=== PATIENT | male | born 1945 | race Caucasian/White ===

== ENCOUNTER 2017-05-01 11:39 | Observation (INO) ==
[2017-05-01] MEDS ORDERED: *HR* Promethazine 25 MG/ML VIAL IVP PRN (15:12)
[2017-05-01] MEDS ORDERED: Naloxone 0.4 MG/ML INJ IVP PRN (15:12)
[2017-05-01] MEDS ORDERED: *HR* HYDROcodone/Acet 5/325 mg TABLET PO PRN (15:12)
[2017-05-01] MEDS ORDERED: Ondansetron 4 MG/2 ML VIAL IVP PRN (15:12)
[2017-05-01] MEDS ORDERED: Acetaminophen 325 MG TABLET PO PRN (15:12)
[2017-05-01] MEDS ORDERED: D5% in Water 1,000 ML IVC PRN (15:17)
[2017-05-01] MEDS ORDERED: Dextrose Gel 15 GM/37.5 ML TUBE PO PRN ×2 (15:17)
[2017-05-01] MEDS ORDERED: *HR* Dextrose 50 % in Water (Syg) 50 ML SYRINGE IVP PRN (15:17)
--- NOTE | 2017-05-01 15:23 | Internal Med History&Physical ---
Date of Encounter: 05/01/17 Time of Encounter: 14:00 Assessment and Plan (1) Systolic CHF, acute on chronic Current visit: Yes Status: Acute Will place the pt into Tele for observation His symptoms slightly better now Troponin slightly elevated..Trend on Trop reviewed 2D Echo from 2015 showed LVEF 30% will recheck Echo in AM started him on IV Lasix 40mg BID Strict I & O and Daily weight Reviewed EKG showed SR, new T wave inversion in Infero lateral leads Card consulted for further work up.. He may get benefit with diagnostic LHC for his worsening CHF exacerbation (2) Elevated troponin Current visit: No Status: Acute (3) Ischemic cardiomyopathy Current visit: No Status: Acute (4) CAD (coronary atherosclerotic disease) Current visit: No Status: Chronic resumed all home meds Qualifiers: Coronary Disease-Associated Artery/Lesion type: unspecified vessel or lesion type [place] vs. transplanted heart: [place] heart Associated angina: with stable angina Qualified Code(s): I25.119 - Atherosclerotic heart disease of [place] coronary artery with unspecified angina pectoris (5) Hx of CABG Current visit: No Status: Chronic (6) Hypertension Current visit: No Status: Chronic stable with home meds Qualifiers: Hypertension type: essential hypertension Qualified Code(s): I10 - Essential (primary) hypertension (7) DM2 (diabetes mellitus, type 2) Current visit: Yes Status: Chronic on ISS Qualifiers: Diabetes mellitus complication status: without complication Diabetes mellitus watermelon inspector insulin use: with senior care use Qualified Code(s): E11.9 - Type 2 diabetes mellitus without complications; Z79.4 - terminal manager (current) use of insulin; Z79.4 - terminal manager (current) use of insulin; Z79.4 - [facility]PC ( current) use of insulin; Z79.4 - terminal manager (current) use of insulin Internal Medicine - H&P: HPI Chief complaint: Shortness of breath Admitted From: Emergency Dept Plans for Post Hospital Care: Home History of present illness: Mr. De La Cruz is a 72 year old male with a known past medical history of arthritis , CAD s/p 3-V CABG, ICMP with AICD EF2 30%, Systlic CHF, diabetes, GERD, hyperlipidemia, hypertension, osteoporosis and peripheral artery disease pt presented to [facility] with severe shortness of breath. As per, about 2 AM this morning tried to lay flat after coming back from restroom and noticed that he was having severe shortness of breath and LUIS. He did take 80mg of Lasix this morning at home , felt little better. He also c/o worsening pedal edema in both legs from last few days. His weight was about 15 pounds over today than his regular. He also had new T wave inversion in inferior and lateral leads. Past Med Surg Social Fam HX - Past Medical History Medical history: arthritis, cardiomyopathy, CHF, coronary artery disease, diabetes, GERD, hyperlipidemia, hypertension, myocardial infarction, osteoporosis, peripheral artery disease, other Psychiatric history: no psych history - Past Surgical History Surgical History: coronary bypass (CABG), LE Bypass, LE vascular intervention, pacemaker/AICD, other - Social History Smoking Status: Former smoker Smokeless Tobacco Status: No Alcohol use: occasionally Drug use: none - Family History Mother Adopted: No Living Status: Internal Medicine - H&P: Meds Aspirin 325 mg PO DAILY 08/09/15 [History] Ergocalciferol (VITAMIN D2) [Vitamin D2 (50,000 UNIT)] 50,000 unit PO QWEEK 05/21 [History] Gabapentin [Gralise] 300 mg PO TID 08/09/15 [History] Insulin Glargine [Lantus] 10 unit SQ HS 08/09/15 [History] Multivitamin [Multivitamins] 1 each PO DAILY 09/12/15 [History] GlipiZIDE XL (24 HR) [Glucotrol XL] 10 mg PO BID 09/13/15 [History] Metoprolol [Lopressor] 25 mg PO BID 09/13/15 [History] Nitroglycerin 0.4 mg SL Q5MIN PRN #30 tab.subl 09/13/15 [Rx] Simvastatin [Zocor] 20 mg PO HS #30 tablet 09/13/15 [Rx] Furosemide [Lasix] 40 mg PO DAILY 05/01/17 [History] Losartan [Cozaar] 50 mg PO DAILY 05/01/17 [History] 3 Allergy/AdvReac Type Severity Reaction Status Date / Time No Known Allergies Allergy Verified 05/01/17 09:37 All Systems PM: A 10-system review of systems was performed and is negative for pertinent findings except as documented above in the HPI. Review of systems: All the systems are reviewed everything is benign except the systems and symptoms I mentioned in the history of present illness - Constitutional Vitals: Temp Pulse Resp BP Pulse Ox 97.9 F 73 16 128/71 94 05/01/17 14:19 05/01/17 14:19 05/01/17 14:19 05/01/17 14:19 05/01/17 14:19 General appearance: Present: A&O X 3, answers questions appropriately - Head Head exam: Present: atraumatic, normal inspection - Neck Neck exam general surgery: Present: supple - Respiratory Respiratory exam: Present: decreased breath sounds. Absent: rales, respiratory distress, rhonchi, wheezes - Cardiovascular Cardiovascular exam: Present: RRR, +S1, +S2. Absent: tachycardia - GI/Abdominal GI/Abdominal exam: Present: normal bowel sounds, soft. Absent: rebound, rigid, tenderness - Extremities Exam Extremities exam: Present: pedal edema (1-2+). Absent: calf tenderness, tenderness - Back Exam Back exam: Absent: CVA tenderness (L), CVA tenderness (R) - Neurological Exam Neurological exam: Present: alert, oriented X3 - Psychiatric Psychiatric exam: Present: normal affect, normal mood
[2017-05-01] MEDS: Insulin LISPRO 300 UNITS/3 ML VIAL SQ SCH (17:23)
[2017-05-01] MEDS: Furosemide 40 MG/4 ML VIAL IVP SCH (20:50)
[2017-05-01] MEDS ORDERED: Insulin LISPRO 300 UNITS/3 ML VIAL SQ SCH (21:00)
[2017-05-02 06:16] LABS: Basophils # 0.1 K/mcL (0.0-0.2); Basophils % 1.4 %; Eosinophils # 0.2 K/mcL (0.0-0.6); Eosinophils % 3.5 %; Hematocrit 28.7 % (37.5-50.1); Hemoglobin 9.1 g/dL (12.9-16.9); Immature Granulocytes % 0.5 % (0-4); Lymphocytes # 1.6 K/mcL (0.6-4.6); Lymphocytes % 24.6 %; Mean Corpuscular HGB Conc 31.7 g/dL (31.6-35.5); Mean Corpuscular Hemoglobin 27.4 pg (28.0-33.3); Mean Corpuscular Volume 86.4 fL (83.0-100.0); Mean Platelet Volume 10.5 fL (9.4-12.4); Monocytes # 0.6 K/mcL (0.0-1.3); Monocytes % 9.4 %; Neutrophils # 3.9 K/mcL (1.6-8.9); Platelet Count 257 K/mcL (140-400); Red Blood Count 3.32 M/mcL (4.19-5.50); Red Cell Distribution Width 14.7 % (11.5-14.5); Segmented Neutrophils % 60.6 %
[2017-05-02 06:29] LABS: BUN/Creatinine Ratio 22 (6-26); Blood Urea Nitrogen 23 mg/dL (8-23); Carbon Dioxide 29 mEq/L (23-29); Chloride 103 mEq/L (98-107); Potassium 3.4 mEq/L (3.5-5.1); Sodium 138 mEq/L (136-145)
[2017-05-02 06:30] LABS: Calcium 8.6 mg/dL (8.6-10.3); Chol/HDL Ratio 3.6 (0-4.9); Cholesterol 115 mg/dL (< 200); Glucose 215 mg/dL (70-105); HDL Cholesterol 32 mg/dL (40-59); LDL Cholesterol,Calculated 64 mg/dL (0-99); Magnesium 2.2 mg/dL (1.6-2.6); Osmolality,Calculated 296 (280-300); Triglycerides 94 mg/dL (< 150); eGFR For Non-African Americans > 60 (> 60)
--- NOTE | 2017-05-02 08:03 | Cardiology Consult Note ---
Date of Encounter: 05/02/17 Time of Encounter: 08:00 Assessment and Plan (1) Systolic CHF, acute on chronic Current Visit: Yes Status: Acute Per Cardiology: Has known ICMP with EF 30%, current echo pending per primary service. Has ICD-- denies any ICD shocks. Present with worsening shortness of breath and BNP of 1061-- appears to have chronic history of elevated BNPs. On IV Lasix 40 mg twice a day. Net I&O -160ml. Will initiate strict I&O, daily weights, 1.5 L fluid restriction. Med list reviewed and on beta david at home-- will start Toprol-XL 12.5 mg by mouth daily (was on lopressor, but has low EF). Additionally on ARB at home, we'll consider adding if systolic blood pressure can tolerate and kidney function remains stable with diuresis. Patient with recent medical noncompliance. Suspect noncompliance with low sodium diet and fluid restriction as well. Education reinforced regarding importance of fluid restriction, low sodium diet, following medical regimen. Clinically appears improved. recommend at time of DC start on daily lasix regimen vs his PRN regimen he was following. Discussed and reviewed with Dr. Melisa Talbot, no further recommendations, cardiology will sign off, reconsult as needed, follow- up arranged. (2) CAD (coronary artery disease) Current Visit: No Status: Acute Per Cardiology: History of CABG in 1993. Troponins negative 2. Chest pain free. Will resume home aspirin and statin and beta david. Last stress test in 2013. Can consider further ischemic evaluation if clinically warranted-- patient anxious to go home, can consider in outpatient setting. Last [facility] 06/2010: Findings/Interventions: Left Ventriculography - The overall left ventricular systolic function was moderately to severely reduced. Left ventricular ejection fraction was 25%. There is moderate to severe, global, left ventricular hypokinesis. Left Anterior Descending Artery - The proximal left anterior descending artery was 100% occluded. Left Circumflex Artery - There was a 40% discrete stenosis in the proximal left circumflex artery. Right Coronary Artery - The right coronary artery was dominant to the posterior circulation. The proximal right coronary artery was 100% occluded. Grafts - LAD Graft Graft #1 was engaged and an injection was performed. It was a saphenous vein graft with anastomosis at the mid left anterior descending artery. The graft is patent. - PDA Graft Graft #2 was engaged and an injection was performed. It was a right internal mammary artery graft with anastomosis at the proximal posterior descending artery. The graft is patent. Impression: Severe two vessel coronary artery disease. Patent saphenous vein graft to the left anterior descending artery. Patent right internal mammary artery graft to the right posterior descending artery. The overall left ventricular systolic function was moderately to severely reduced. The left ventricular ejection fraction was 25%. There is moderate to severe, global, left ventricular hypokinesis. Qualifiers: Coronary Disease-Associated Artery/Lesion type: [place] artery [place] vs. transplanted heart: [place] heart Associated angina: angina presence unspecified Qualified Code(s): I25.10 - Atherosclerotic heart disease of [place] coronary artery without angina pectoris Discussion w patient/family: The assessment and plan as outlined above was discussed with the patient who expressed understanding and agreement. All questions were answered. Thank you for involving us in the care of your patient. Please call with any questions. History of Present Illness Consult date: 05/02/17 Requesting physician: Vidya Driver Consult reason: CHF, Trops elevation Chief complaint: SOB History of present illness: Mr. De La Cruz is a 72 year old male with a known past medical history of arthritis , CAD s/p 3-V CABG, ICMP with AICD EF2 30%, Systlic CHF, diabetes, GERD, hyperlipidemia, hypertension, osteoporosis and peripheral artery disease. Last seen by Dr. Grimes with cardiology December 2016. Cardiology consult for shortness of breath/CHF. Patient reports increased shortness of breath at rest and with laying flat over the past one week. Patient reports he takes Lasix 40 mg every other evening routinely over the past 6 months, however over the past few weeks has increased to 80 mg every evening. Patient reports recent medical noncompliance due to "running out of medications over the past 2 weeks ". Patient reports he does not weigh himself regularly, however baseline weight about 187 pounds. He does report compliance with fluid restriction, however also indicates he fills up a pitcher of water with ice prior to bedtime and drinks about a half a cup prior to going to bed. Since admission he reports overall he is short of breath has improved, abdominal distention has improved, edema to lower extremities has improved. He also reports facial swelling has improved as well. Prior to admission he denies any chest pain symptoms. He reports fatigue about baseline. He denies any palpitations, dizziness, syncope, falls. Denies any ICD shocks. He denies any active bleeding or blood loss. Denies any recent infectious process. Patient is anxious to go home today. Past Med Surg Social Fam HX - Past Medical History Attestation: Yes The following information was validated with the patient. Source: patient, old records reviewed Medical history: arthritis, cardiomyopathy, CHF, coronary artery disease, diabetes, GERD, hyperlipidemia, hypertension, myocardial infarction, osteoporosis, peripheral artery disease, other Psychiatric history: no psych history - Past Surgical History Surgical History: coronary bypass (CABG), LE Bypass, LE vascular intervention, pacemaker/AICD, other - Social History Smoking Status: Former smoker Smokeless Tobacco Status: No Alcohol use: occasionally Drug use: none - Family History Mother Adopted: No Living Status: Medications and Allergies Aspirin 325 mg PO DAILY 08/09/15 [History] Ergocalciferol (VITAMIN D2) [Vitamin D2 (50,000 UNIT)] 50,000 unit PO QWEEK 05/21 [History] Gabapentin [Gralise] 300 mg PO TID 08/09/15 [History] Insulin Glargine [Lantus] 10 unit SQ HS 08/09/15 [History] Multivitamin [Multivitamins] 1 each PO DAILY 09/12/15 [History] GlipiZIDE XL (24 HR) [Glucotrol XL] 10 mg PO BID 09/13/15 [History] Metoprolol [Lopressor] 25 mg PO BID 09/13/15 [History] Nitroglycerin 0.4 mg SL Q5MIN PRN #30 tab.subl 09/13/15 [Rx] Simvastatin [Zocor] 20 mg PO HS #30 tablet 09/13/15 [Rx] Furosemide [Lasix] 40 mg PO DAILY 05/01/17 [History] Losartan [Cozaar] 50 mg PO DAILY 05/01/17 [History] 3 Allergy/AdvReac Type Severity Reaction Status Date / Time No Known Allergies Allergy Verified 05/01/17 09:37 All Systems Review: The remainder of the systems were reviewed and are negative - Constitutional Constitutional: fatigue - Cardiovascular Cardiovascular: as per HPI, dyspnea at rest, dyspnea on exertion, leg edema - Gastrointestinal Gastrointestinal: other (Abdominal distention) Physical Examination Selected Entries 05/02/17 03:20 05/02/17 04:20 Temperature 98.6 F Pulse Rate 72 Respiratory Rate 16 Blood Pressure 131/66 O2 Sat by Pulse Oximetry 94 Oxygen Delivery Method Room Air General: Conversant, No Apparent Distress HEENT: Atraumatic, Normocephaly, Mucus Membranes Moist Neck: No JVD, Normal carotid pulses Cardiac: Reg Rate and Rhythm, Normal S1 and S2, No Murmur Lungs: Normal Breath Sounds, Other (Slightly diminished bilateral bases, patient seen laying flat in bed today with no difficulty breathing) Neuro: Alert and responsive, No focal deficits noted Abdomen: Soft, Non-Tender Skin: No rashes noted on visualized skin Musculoskeletal: No Chest Wall Tenderness Extremities: No Clubbing, No Cyanosis, Normal Pulses, Other (Trace to +1 pitting edema to bilateral lower extremities) Results 05/02/17 05:09 05/02/17 05:09 Lab Results Laboratory Tests 09/12/15 02/24/16 02/24/16 18:25 10:50 10:50 Hgb 11.3 L Hct Troponin I B-Natriuretic Peptide 217 H 466 H 05/01/17 05/01/17 05/01/17 10:00 15:32 21:17 Hgb Hct Troponin I 0.03 0.03 B-Natriuretic Peptide 1061 H 05/02/17 05/02/17 05:09 05:09 Hgb 9.1 L Hct 28.7 L Troponin I B-Natriuretic Peptide 726 H Intake & Output 04/29/17 04/30/17 05/01/17 05/02/17 23:59 23:59 23:59 23:59 Intake Total 240 / 240 Output Total 400 / 400 Balance 240 / 240 -400 / -400 Weight 85.842 kg 86.092 kg Active Medications Acetaminophen (Tylenol) 650 mg PO Q6HR PRN PRN Reason: Mild Pain/Fever Stop: 10/31/17 15:13 Hydrocodone Bitart/Acetaminophen ([place] 5-325 Mg) 1 tab PO Q6HR PRN PRN Reason: Moderate Pain Stop: 10/31/17 15:13 Dextrose/Water (Dextrose 50% (Syg)) 25 ml IVP AD PRN PRN Reason: Hypoglycemia Stop: 10/31/17 15:18 Docusate Sodium (Colace) 100 mg PO BID PRN PRN Reason: Constipation Stop: 10/31/17 21:01 Furosemide (Lasix) 40 mg IVP BID ANASTASIYA Stop: 10/31/17 21:01 Last Admin: 05/01/17 20:50 Dose: 40 mg Glucagon (Glucagen) 1 mg IM ONCE PRN PRN Reason: Hypoglycemia Stop: 10/31/17 15:18 Glucose (Gluctose) 15 gm PO ONCE PRN PRN Reason: Hypoglycemia Stop: 10/31/17 15:18 Glucose (Gluctose) 30 gm PO ONCE PRN PRN Reason: Hypoglycemia Stop: 10/31/17 15:18 Dextrose (Dextrose 5%) 1,000 mls @ 100 mls/hr IVC .Q10H PRN PRN Reason: HYPOGLYCEMIA Stop: 10/31/17 15:18 Insulin Human Lispro (Humalog) 0 units SQ HS ANASTASIYA PRN Reason: Protocol Stop: 10/31/17 21:01 Last Admin: 05/01/17 20:50 Dose: Not Given Insulin Human Lispro (Humalog) 0 units SQ TIDAC ANASTASIYA PRN Reason: Protocol Stop: 10/31/17 16:31 Last Admin: 05/01/17 17:23 Dose: Not Given Naloxone HCl (Narcan) 0.4 mg IVP Q2MIN PRN PRN Reason: SEE COMMENTS Stop: 10/31/17 15:13 Ondansetron HCl (Zofran) 4 mg IVP Q8HR PRN PRN Reason: Nausea And Vomiting Stop: 10/31/17 15:13 Promethazine HCl (Phenergan) 12.5 mg IVP Q6HR PRN PRN Reason: Nausea And Vomiting Stop: 10/31/17 15:13 - Imaging and Cardiology Stress Test: report reviewed (last stress test 2013) Echo: pending, report reviewed Cardiac cath: report reviewed - EKG Interpretation EKG results cardiology: personally reviewed, normal ECG, sinus rhythm, ventricular paced rhythm, other (Paced rhythm on telemetry) Consult Discharge Plan - Plan Referrals: Dino Manzanares MD [Primary Care Provider] -
[2017-05-02] MEDS: Furosemide 40 MG/4 ML VIAL IVP SCH (08:29)
[2017-05-02] MEDS: Insulin LISPRO 300 UNITS/3 ML VIAL SQ SCH ×2 (08:47→12:36)
[2017-05-02] MEDS ORDERED: Aspirin 81 MG TAB.CHEW PO SCH (09:00)
[2017-05-02] MEDS ORDERED: Metoprolol XL (24 HR) Succ 25 MG TAB.ER.24H PO SCH (09:00)
[2017-05-02] MEDS ORDERED: Perflutren Lipid Microsphere 1.3 ML in 0.9 % Sodium Chloride 8.7 ML IVP ONE (09:27)
[2017-05-02 12:00] VITALS: BP 132/74
--- NOTE | 2017-05-02 15:51 | Event Note ---
Date of Encounter: 05/02/17 Time of Encounter: 11:00 Mr. De La Cruz is a 72-year-old gentleman who was admitted with some systolic congestive heart failure and history of CAD and diabetes. He is noncompliant. He was refusing his insulin here because it was not dispensed in milligrams. Multiple nurses and myself tried to educate him on insulin being dispensed in units and he stated that his his written in milligrams, he did not want to listen. He also stated he was leaving today no matter what. He did not believe he needs to stay another day or so for continued diuresis. He states he feels back to his baseline and since the weather is nice and he can get out and walk around he will be fine. Cardiology saw the patient and also recommended he stay for at least 1 more day for continued diuresis. The cardiology service nor myself felt he was ready for discharge. His glucose on admission was 726. I did replace his potassium which is low this morning. He stated he was not staying. His came in and tried to talk him into staying but he refused and he did leave AGAINST MEDICAL ADVICE. Cardiology will arrange for him to be seen in the office in 1-2 weeks but they are not sure of his compliance either. His echocardiogram was completed. With EF of 30%. Mild dilated left ventricle, intermittent diastolic function.
== END 2017-05-02 13:55 | disposition left against medical advice (07) ==
LOC: 3BNU
PROVIDERS: ADMIT Family Medicine; ATTEND Registered Nurse

== ENCOUNTER 2017-10-07 09:22 | Inpatient (IN) ==
[2017-10-07] MEDS ORDERED: Furosemide 40 MG/4 ML VIAL IVP ONE ×2 (10:06→19:19)
--- NOTE | 2017-10-07 10:10 | Emergency Department Note ---
Disposition Clinical Impression: NSTEMI (non-ST elevated myocardial infarction) Congestive heart failure Qualifiers: Heart failure type: unspecified Heart failure chronicity: acute on chronic Qualified Code(s): I50.9 - Heart failure, unspecified Disposition: Admitted As Inpatient Condition: Good SOB HPI - General Chief Complaint: ED Shortness of Breath/Dyspnea Stated Complaint: SOB/fluid overload-sent from cardiology Time Seen by Provider: 10/07/17 09:45 Source: patient Mode of arrival: wheelchair Limitations: no limitations (patient is slightly hard of hearing) Nursing Notes Reviewed: Yes Vital Signs Reviewed: Yes - History of Present Illness Jodie is a pleasant 72-year-old male with a past medical history of congestive heart failure type 2 diabetes. He presents the emergency room with a chief complaint of restless of breath, fluid overloading and abdominal and lower leg swelling. He was sent to the emergency room from his network liaison to be admitted for paracentesis. He denies chest pain however states that he does have generalized aches throughout his body. He states he has been dealing with increased swelling for the past several weeks. He notes that he takes 160 mg of Lasix a day 80 in the morning 80 in the evening. He states that he has not had his morning dose yet. He notes that he has been having increased shortness for the past several weeks and his Lasix dose has been increased in this time. It is of the Lasix has not decreased any of his shortness of breath. He denies fevers cough. No other concerns at this time. He was sent to the emergency room by his network liaison. Pt Subjective Complaint: shortness of breath Onset (ago): week(s) Associated symptoms: Reports: denies other symptoms Cough present: No Sputum production: No - Related Data Home Medications Medication Instructions Recorded Confirmed Aspirin 325 mg PO DAILY 08/09/15 10/07/17 Insulin Glargine [Lantus] 10 unit SQ HS 08/09/15 10/07/17 Multivitamin [Multivitamins] 1 each PO DAILY 09/12/15 10/07/17 GlipiZIDE XL (24 HR) [Glucotrol XL] 10 mg PO BID 09/13/15 10/07/17 Metoprolol [Lopressor] 25 mg PO BID 09/13/15 10/07/17 Esomeprazole Magnesium [Nexium 20 mg PO DAILY 05/02/17 10/07/17 24Hr] Gabapentin [Neurontin] 300 mg PO TID 05/02/17 10/07/17 Losartan Potassium [Cozaar] 50 mg PO DAILY 05/02/17 10/07/17 Vit C/E/Zn/Coppr/Lutein/Zeaxan 1 cap PO BID 05/02/17 10/07/17 [Preservision Areds 2 Softgel] Furosemide [Lasix] 80 mg PO BID 10/07/17 10/07/17 Previous Rx's Medication Instructions Recorded Nitroglycerin 0.4 mg SL Q5MIN PRN #30 tab.subl 09/13/15 Simvastatin [Zocor] 20 mg PO HS #30 tablet 09/13/15 Allergies Allergy/AdvReac Type Severity Reaction Status Date / Time No Known Allergies Allergy Verified 10/07/17 09:25 All systems ED: reviewed and negative except as stated. Review of Systems: As Per HPI Constitutional: Reports: as per HPI Eyes: Reports: as per HPI Cardiovascular: Reports: as per HPI Respiratory: Reports: as per HPI Gastrointestinal: Reports: as per HPI Musculoskeletal: Reports: as per HPI Integumentary: Reports: as per HPI Past Medical History - Past Medical History Medical history: Reports: arthritis, cardiomyopathy, CHF, coronary artery disease, diabetes, GERD, hyperlipidemia, hypertension, myocardial infarction, osteoporosis, peripheral artery disease, other Surgical history: Reports: coronary bypass (CABG), LE Bypass, LE vascular intervention, pacemaker/AICD, other Psychiatric history: Reports: no psych history - Social History Smoking Status: Former smoker Smokeless Tobacco Status: No Alcohol use: Reports: occasionally Drug use: Reports: none Physical Exam - General General appearance: alert, in no apparent distress - Head Head exam: atraumatic - ENT ENT exam: normal exam - Chest Chest inspection: Present: normal inspection - Respiratory Respiratory exam: Present: normal lung sounds bilaterally - Cardiovascular Cardiovascular exam: Present: regular rate, normal rhythm - Abdominal Exam Abdominal exam: Present: distention. Absent: guarding, rebound - Expanded Lower Extremity Exam Hip/Pelvis exam: Present: tenderness Upper leg exam: Present: tenderness Knee exam: Present: tenderness. Absent: swelling Lower leg exam: Present: tenderness, swelling Ankle exam: Absent: swelling Foot/toe exam: Absent: deformity Neurovascular/Tendon exam: Present: normal capillary refill Gait: not tested/not observed - Back Exam Back exam: Absent: CVA tenderness (R), CVA tenderness (L) - Neurological Exam Neurological exam: Present: alert, oriented X3 - Psychiatric Psychiatric exam: Present: normal affect, normal mood - Skin Skin exam: Present: warm, dry, intact. Absent: rash Course Course Narrative: Care of patient was comanage with Dr. thomas. There are concerns for nonresolution of shortness of breath with Lasix administration. Patient will be admitted for non-STEMI/CHF exacerbation. Heparin was added due to troponin elevation. Vital Signs Temperature 97.9 F 10/07/17 09:25 Pulse Rate 72 10/07/17 09:25 Respiratory Rate 24 10/07/17 09:25 Blood Pressure 117/78 10/07/17 09:25 O2 Sat by Pulse Oximetry 95 10/07/17 09:25 Temperature 97.3 F L 10/07/17 16:37 Pulse Rate 66 10/07/17 16:37 Respiratory Rate 17 10/07/17 16:37 Blood Pressure 118/76 10/07/17 16:37 O2 Sat by Pulse Oximetry 98 10/07/17 16:37 Oxygen Delivery Oxygen Delivery Room Air Shortness of Breath/Dyspnea - MDM Narrative Medical decision making narrative: Acis discussed with cardiology who agreed to consult on the patient. I discussed case with hospitalist who will admit to hospitalist service. - Lab Data Result diagrams: 10/07/17 14:46 10/07/17 10:23 Lab Results 10/07/17 10/07/17 10/07/17 Range/Units 10:23 10:23 10:23 WBC 7.5 (4.3-11.1) K/mcL RBC 4.41 (4.19-5.50) M/mcL Hgb 11.6 L (12.9-16.9) g/dL Hct 35.9 L (37.5-50.1) % MCV 81.4 L (83.0-100.0) fL MCH 26.3 L (28.0-33.3) pg MCHC 32.3 (31.6-35.5) g/dL RDW 17.3 H (11.5-14.5) % Plt Count 226 (140-400) K/mcL MPV 10.1 (9.4-12.4) fL Immature Gran % 0.4 (0-4) % Seg Neutrophils % 64.5 % Lymphocytes % 15.2 % Monocytes % 14.0 % Eosinophils % 4.7 % Basophils % 1.2 % Neutrophils # 4.8 (1.6-8.9) K/mcL Lymphocytes # 1.1 (0.6-4.6) K/mcL Monocytes # 1.0 (0.0-1.3) K/mcL Eosinophils # 0.4 (0.0-0.6) K/mcL Basophils # 0.1 (0.0-0.2) K/mcL PT (9.4-12.1) Seconds INR Heparin Anti-Xa, Unfract (0.30-0.70) IU/mL Sodium 137 (136-145) mEq/L Potassium 4.0 (3.5-5.1) mEq/L Chloride 101 (98-107) mEq/L Carbon Dioxide 29 (23-29) mEq/L BUN 40 H (8-23) mg/dL Creatinine 1.49 H (0.70-1.30) mg/dL Est GFR ( Amer) 56 L (> 60) Est GFR (Non-Af Amer) 46 L (> 60) BUN/Creatinine Ratio 27 H (6-26) Glucose 304 H (70-105) mg/dL Calculated Osmolality 305 H (280-300) Lactic Acid 1.1 (0.5-2.2) mmol/L Calcium 8.9 (8.6-10.3) mg/dL Total Bilirubin 0.6 (0.3-1.0) mg/dL Direct Bilirubin 0.2 (0.0-0.2) mg/dL Indirect Bilirubin 0.4 (0.0-1.2) mg/dL AST 23 (13-39) Units/L ALT 17 (7-52) Units/L Alkaline Phosphatase 133 H (34-104) Units/L Troponin I 0.13 H* (< 0.04) ng/mL B-Natriuretic Peptide (Less than 100) pg/mL Serum Total Protein 7.0 (6.4-8.9) g/dL Albumin 3.8 (3.5-5.7) g/dL Globulin 3.2 (2.4-3.5) g/dL Albumin/Globulin Ratio 1.2 (1.1-2.2) 08/02/18 08/02/18 08/02/18 Range/Units 10:23 14:46 14:46 WBC 6.9 (4.3-11.1) K/mcL RBC 4.32 (4.19-5.50) M/mcL Hgb 11.4 L (12.9-16.9) g/dL Hct 35.1 L (37.5-50.1) % MCV 81.3 L (83.0-100.0) fL MCH 26.4 L (28.0-33.3) pg MCHC 32.5 (31.6-35.5) g/dL RDW 17.2 H (11.5-14.5) % Plt Count 234 (140-400) K/mcL MPV 9.7 (9.4-12.4) fL Immature Gran % (0-4) % Seg Neutrophils % % Lymphocytes % % Monocytes % % Eosinophils % % Basophils % % Neutrophils # (1.6-8.9) K/mcL Lymphocytes # (0.6-4.6) K/mcL Monocytes # (0.0-1.3) K/mcL Eosinophils # (0.0-0.6) K/mcL Basophils # (0.0-0.2) K/mcL PT 15.3 H (9.4-12.1) Seconds INR 1.4 Heparin Anti-Xa, Unfract 0.01 L (0.30-0.70) IU/mL Sodium (136-145) mEq/L Potassium (3.5-5.1) mEq/L Chloride (98-107) mEq/L Carbon Dioxide (23-29) mEq/L BUN (8-23) mg/dL Creatinine (0.70-1.30) mg/dL Est GFR ( Amer) (> 60) Est GFR (Non-Af Amer) (> 60) BUN/Creatinine Ratio (6-26) Glucose (70-105) mg/dL Calculated Osmolality (280-300) Lactic Acid (0.5-2.2) mmol/L Calcium (8.6-10.3) mg/dL Total Bilirubin (0.3-1.0) mg/dL Direct Bilirubin (0.0-0.2) mg/dL Indirect Bilirubin (0.0-1.2) mg/dL AST (13-39) Units/L ALT (7-52) Units/L Alkaline Phosphatase (34-104) Units/L Troponin I (< 0.04) ng/mL B-Natriuretic Peptide 1097 H (Less than 100) pg/mL Serum Total Protein (6.4-8.9) g/dL Albumin (3.5-5.7) g/dL Globulin (2.4-3.5) g/dL Albumin/Globulin Ratio (1.1-2.2)
[2017-10-07 10:32] LABS: Basophils # 0.1 K/mcL (0.0-0.2); Basophils % 1.2 %; Eosinophils # 0.4 K/mcL (0.0-0.6); Eosinophils % 4.7 %; Hematocrit 35.9 % (37.5-50.1); Hemoglobin 11.6 g/dL (12.9-16.9); Immature Granulocytes % 0.4 % (0-4); Lymphocytes # 1.1 K/mcL (0.6-4.6); Lymphocytes % 15.2 %; Mean Corpuscular HGB Conc 32.3 g/dL (31.6-35.5); Mean Corpuscular Hemoglobin 26.3 pg (28.0-33.3); Mean Corpuscular Volume 81.4 fL (83.0-100.0); Mean Platelet Volume 10.1 fL (9.4-12.4); Neutrophils # 4.8 K/mcL (1.6-8.9); Platelet Count 226 K/mcL (140-400); Red Blood Count 4.41 M/mcL (4.19-5.50); Red Cell Distribution Width 17.3 % (11.5-14.5); Segmented Neutrophils % 64.5 %
[2017-10-07 11:02] LABS: Albumin 3.8 g/dL (3.5-5.7); Albumin/Globulin Ratio 1.2 (1.1-2.2); Bilirubin,Direct 0.2 mg/dL (0.0-0.2); Bilirubin,Indirect 0.4 mg/dL (0.0-1.2); Bilirubin,Total 0.6 mg/dL (0.3-1.0); Calcium 8.9 mg/dL (8.6-10.3); Globulin 3.2 g/dL (2.4-3.5)
[2017-10-07 11:06] LABS: Troponin I 0.13 ng/mL (< 0.04)
[2017-10-07] MEDS ORDERED: Isovue-370 500 ML INFUS..BTL IV ONE (12:30)
[2017-10-07] MEDS ORDERED: *HR* Heparin 5,000 UNIT/ML VIAL IVP ONE (14:38)
[2017-10-07] MEDS ORDERED: *HR* Heparin 5,000 UNIT/ML VIAL IVP PRN ×2 (14:38)
[2017-10-07] MEDS ORDERED: Heparin 25,000 UNIT/500 ML D5W 25,000 UNIT/500 ML BAG IVC SCH (14:45)
[2017-10-07 14:56] LABS: Hematocrit 35.1 % (37.5-50.1); Hemoglobin 11.4 g/dL (12.9-16.9); Mean Corpuscular HGB Conc 32.5 g/dL (31.6-35.5); Mean Corpuscular Hemoglobin 26.4 pg (28.0-33.3); Mean Corpuscular Volume 81.3 fL (83.0-100.0); Mean Platelet Volume 9.7 fL (9.4-12.4); Platelet Count 234 K/mcL (140-400); Red Blood Count 4.32 M/mcL (4.19-5.50); Red Cell Distribution Width 17.2 % (11.5-14.5)
[2017-10-07 15:08] LABS: Heparin anti-factor XA UFH 0.01 IU/mL (0.30-0.70)
[2017-10-07 15:09] LABS: INR 1.4; Prothrombin Time 15.3 Seconds (9.4-12.1)
--- NOTE | 2017-10-07 15:17 | Emergency Department Note ---
Disposition Clinical Impression: NSTEMI (non-ST elevated myocardial infarction) Congestive heart failure Qualifiers: Heart failure type: unspecified Heart failure chronicity: acute on chronic Qualified Code(s): I50.9 - Heart failure, unspecified Disposition: Admitted As Inpatient Condition: Good Referrals: Dino Manzanares MD [Primary Care Provider] - Forms: ED Satisfaction Letter Time of Disposition: 15:18 SOB HPI - General Chief Complaint: ED Shortness of Breath/Dyspnea Stated Complaint: SOB/fluid overload-sent from cardiology Time Seen by Provider: 10/07/17 09:45 Source: patient Mode of arrival: wheelchair Limitations: no limitations (patient is slightly hard of hearing) - Related Data Home Medications Medication Instructions Recorded Confirmed Aspirin 325 mg PO DAILY 08/09/15 05/17/17 Insulin Glargine [Lantus] 10 unit SQ HS 08/09/15 05/17/17 Multivitamin [Multivitamins] 1 each PO DAILY 09/12/15 05/17/17 GlipiZIDE XL (24 HR) [Glucotrol XL] 10 mg PO BID 09/13/15 05/17/17 Metoprolol [Lopressor] 25 mg PO BID 09/13/15 05/17/17 Furosemide [Lasix] 40 mg PO BID 05/01/17 05/17/17 Esomeprazole Magnesium [Nexium 20 mg PO DAILY 05/02/17 05/17/17 24Hr] Gabapentin [Neurontin] 300 mg PO TID 05/02/17 05/17/17 Losartan Potassium [Cozaar] 50 mg PO DAILY 05/02/17 05/17/17 Vit C/E/Zn/Coppr/Lutein/Zeaxan 1 cap PO BID 05/02/17 05/17/17 [Preservision Areds 2 Softgel] Previous Rx's Medication Instructions Recorded Nitroglycerin 0.4 mg SL Q5MIN PRN #30 tab.subl 09/13/15 Simvastatin [Zocor] 20 mg PO HS #30 tablet 09/13/15 Fluconazole [Diflucan] 150 mg PO ONCE #1 tablet 09/13/17 Furosemide [Lasix] 40 mg PO BID #60 tablet 09/13/17 Ketoconazole 2% CRM [Nizoral Cream] 1 appl TP BID #1 tube 09/13/17 Allergies Allergy/AdvReac Type Severity Reaction Status Date / Time No Known Allergies Allergy Verified 10/07/17 09:25 Past Medical History - Past Medical History Medical history: Reports: arthritis, cardiomyopathy, CHF, coronary artery disease, diabetes, GERD, hyperlipidemia, hypertension, myocardial infarction, osteoporosis, peripheral artery disease, other Surgical history: Reports: coronary bypass (CABG), LE Bypass, LE vascular intervention, pacemaker/AICD, other Psychiatric history: Reports: no psych history - Social History Smoking Status: Former smoker Smokeless Tobacco Status: No Alcohol use: Reports: occasionally Drug use: Reports: none Physical Exam - General Limitations: no limitations (patient is slightly hard of hearing) General appearance: alert, in no apparent distress Course Vital Signs Temperature 97.9 F 10/07/17 09:25 Pulse Rate 72 10/07/17 09:25 Respiratory Rate 24 10/07/17 09:25 Blood Pressure 117/78 10/07/17 09:25 O2 Sat by Pulse Oximetry 95 10/07/17 09:25 Temperature 97.9 F 10/07/17 09:27 Pulse Rate 60 10/07/17 14:24 Respiratory Rate 16 10/07/17 14:24 Blood Pressure 128/78 10/07/17 14:24 O2 Sat by Pulse Oximetry 93 10/07/17 14:24 Oxygen Delivery Oxygen Delivery Room Air Shortness of Breath/Dyspnea - Lab Data Result diagrams: 10/07/17 14:46 10/07/17 10:23 Lab Results 10/07/17 10/07/17 10/07/17 Range/Units 10:23 10:23 10:23 WBC 7.5 (4.3-11.1) K/mcL RBC 4.41 (4.19-5.50) M/mcL Hgb 11.6 L (12.9-16.9) g/dL Hct 35.9 L (37.5-50.1) % MCV 81.4 L (83.0-100.0) fL MCH 26.3 L (28.0-33.3) pg MCHC 32.3 (31.6-35.5) g/dL RDW 17.3 H (11.5-14.5) % Plt Count 226 (140-400) K/mcL MPV 10.1 (9.4-12.4) fL Immature Gran % 0.4 (0-4) % Seg Neutrophils % 64.5 % Lymphocytes % 15.2 % Monocytes % 14.0 % Eosinophils % 4.7 % Basophils % 1.2 % Neutrophils # 4.8 (1.6-8.9) K/mcL Lymphocytes # 1.1 (0.6-4.6) K/mcL Monocytes # 1.0 (0.0-1.3) K/mcL Eosinophils # 0.4 (0.0-0.6) K/mcL Basophils # 0.1 (0.0-0.2) K/mcL PT (9.4-12.1) Seconds INR Heparin Anti-Xa, Unfract (0.30-0.70) IU/mL Sodium 137 (136-145) mEq/L Potassium 4.0 (3.5-5.1) mEq/L Chloride 101 (98-107) mEq/L Carbon Dioxide 29 (23-29) mEq/L BUN 40 H (8-23) mg/dL Creatinine 1.49 H (0.70-1.30) mg/dL Est GFR ( Amer) 56 L (> 60) Est GFR (Non-Af Amer) 46 L (> 60) BUN/Creatinine Ratio 27 H (6-26) Glucose 304 H (70-105) mg/dL Calculated Osmolality 305 H (280-300) Lactic Acid 1.1 (0.5-2.2) mmol/L Calcium 8.9 (8.6-10.3) mg/dL Total Bilirubin 0.6 (0.3-1.0) mg/dL Direct Bilirubin 0.2 (0.0-0.2) mg/dL Indirect Bilirubin 0.4 (0.0-1.2) mg/dL AST 23 (13-39) Units/L ALT 17 (7-52) Units/L Alkaline Phosphatase 133 H (34-104) Units/L Troponin I 0.13 H* (< 0.04) ng/mL B-Natriuretic Peptide (Less than 100) pg/mL Serum Total Protein 7.0 (6.4-8.9) g/dL Albumin 3.8 (3.5-5.7) g/dL Globulin 3.2 (2.4-3.5) g/dL Albumin/Globulin Ratio 1.2 (1.1-2.2) 10/07/17 10/07/17 10/07/17 Range/Units 10:23 14:46 14:46 WBC 6.9 (4.3-11.1) K/mcL RBC 4.32 (4.19-5.50) M/mcL Hgb 11.4 L (12.9-16.9) g/dL Hct 35.1 L (37.5-50.1) % MCV 81.3 L (83.0-100.0) fL MCH 26.4 L (28.0-33.3) pg MCHC 32.5 (31.6-35.5) g/dL RDW 17.2 H (11.5-14.5) % Plt Count 234 (140-400) K/mcL MPV 9.7 (9.4-12.4) fL Immature Gran % (0-4) % Seg Neutrophils % % Lymphocytes % % Monocytes % % Eosinophils % % Basophils % % Neutrophils # (1.6-8.9) K/mcL Lymphocytes # (0.6-4.6) K/mcL Monocytes # (0.0-1.3) K/mcL Eosinophils # (0.0-0.6) K/mcL Basophils # (0.0-0.2) K/mcL PT 15.3 H (9.4-12.1) Seconds INR 1.4 Heparin Anti-Xa, Unfract 0.01 L (0.30-0.70) IU/mL Sodium (136-145) mEq/L Potassium (3.5-5.1) mEq/L Chloride (98-107) mEq/L Carbon Dioxide (23-29) mEq/L BUN (8-23) mg/dL Creatinine (0.70-1.30) mg/dL Est GFR ( Amer) (> 60) Est GFR (Non-Af Amer) (> 60) BUN/Creatinine Ratio (6-26) Glucose (70-105) mg/dL Calculated Osmolality (280-300) Lactic Acid (0.5-2.2) mmol/L Calcium (8.6-10.3) mg/dL Total Bilirubin (0.3-1.0) mg/dL Direct Bilirubin (0.0-0.2) mg/dL Indirect Bilirubin (0.0-1.2) mg/dL AST (13-39) Units/L ALT (7-52) Units/L Alkaline Phosphatase (34-104) Units/L Troponin I (< 0.04) ng/mL B-Natriuretic Peptide 1097 H (Less than 100) pg/mL Serum Total Protein (6.4-8.9) g/dL Albumin (3.5-5.7) g/dL Globulin (2.4-3.5) g/dL Albumin/Globulin Ratio (1.1-2.2) Critical Care Time Critical Care Time: Yes Total Critical Care Time: 25 Attestation: Critical care time independent of procedures was 20 minutes Attestation Statement - Attestation Attestation: I separately interviewed and examined this patient. I discussed his situation with the PA, and recommended the CT angiogram of the chest to rule out pulmonary embolism as a cause of worsening heart failure and shortness of breath, after long ultrasound performed at bedside did not demonstrate B-lines. Because his evaluations consistent with CHF and also with a non-ST elevation LA , he was started on heparin in addition to the additional furosemide given initially. I discussed this case with the on-call hospitalist, who accepted him for admission
[2017-10-07] MEDS ORDERED: Nitroglycerin 0.4 MG TAB.SUBL SL PRN (19:12)
[2017-10-07] MEDS ORDERED: Naloxone 0.4 MG/ML INJ IVP PRN (19:21)
[2017-10-07] MEDS ORDERED: Acetaminophen 325 MG TABLET PO PRN (19:21)
[2017-10-07] MEDS ORDERED: Dextrose Gel 15 GM/37.5 ML TUBE PO PRN ×2 (19:30)
[2017-10-07] MEDS ORDERED: *HR* Dextrose 50 % in Water (Syg) 50 ML SYRINGE IVP PRN (19:30)
[2017-10-07] MEDS ORDERED: D5% in Water 1,000 ML IVC PRN (19:30)
--- NOTE | 2017-10-07 20:02 | Internal Med History&Physical ---
Date of Encounter: 10/07/17 Time of Encounter: 11:00 Internal Medicine - H&P: HPI Chief complaint: Shortness of breath Admitted From: Home History of present illness: Patient is a 72-year-old male with past medical history significant for ischemic cardiomyopathy with CABG and pacemaker/AICD, hypertension, hyperlipidemia and diabetes who presents to the ER on 10/07/17 due to weight gain and shortness of breath. Patient states that he has gained weight within the last week in addition to having dyspnea on exertion. also notes that patient has had orthopnea over the last several days as well. Patient was brought into the ER for evaluation. In the ER, patient was found to have a BNP of 1097 with elevated troponin of 0.13. He was also found to have evidence of vascular congestion on imaging. Patient will be admitted to medical surgical floor for acute on chronic heart failure exacerbation with elevated troponins. Past Med Surg Social Fam HX - Past Medical History Medical history: arthritis, cardiomyopathy, CHF, coronary artery disease, diabetes, GERD, hyperlipidemia, hypertension, myocardial infarction, osteoporosis, peripheral artery disease, other Psychiatric history: no psych history - Past Surgical History Surgical History: coronary bypass (CABG), LE Bypass, LE vascular intervention, pacemaker/AICD, other - Social History Smoking Status: Former smoker Smokeless Tobacco Status: No Alcohol use: occasionally Drug use: none - Family History Mother Adopted: No Living Status: Internal Medicine - H&P: Meds Aspirin 325 mg PO DAILY 08/09/15 [History] Insulin Glargine [Lantus] 10 unit SQ HS 08/09/15 [History] Multivitamin [Multivitamins] 1 each PO DAILY 09/12/15 [History] GlipiZIDE XL (24 HR) [Glucotrol XL] 10 mg PO BID 09/13/15 [History] Metoprolol [Lopressor] 25 mg PO BID 09/13/15 [History] Nitroglycerin 0.4 mg SL Q5MIN PRN #30 tab.subl 09/13/15 [Rx] Simvastatin [Zocor] 20 mg PO HS #30 tablet 09/13/15 [Rx] Esomeprazole Magnesium [Nexium 24Hr] 20 mg PO DAILY 05/02/17 [History] Gabapentin [Neurontin] 300 mg PO TID 05/02/17 [History] Losartan Potassium [Cozaar] 50 mg PO DAILY 05/02/17 [History] Vit C/E/Zn/Coppr/Lutein/Zeaxan [Preservision Areds 2 Softgel] 1 cap PO BID 05/02 [History] Furosemide [Lasix] 80 mg PO BID 10/07/17 [History] 3 Allergy/AdvReac Type Severity Reaction Status Date / Time No Known Allergies Allergy Verified 10/07/17 09:25 All Systems PM: A 10-system review of systems was performed and is negative for pertinent findings except as documented above in the HPI. - Constitutional Vitals: Temp Pulse Resp BP Pulse Ox 98.3 F 72 18 118/79 95 10/07/17 18:47 10/07/17 18:47 10/07/17 18:47 10/07/17 18:47 10/07/17 18:47 General appearance: Present: A&O X 3, no acute distress - ENT ENT exam: Present: mucous membranes moist - Respiratory Respiratory exam: Present: CTAB. Absent: accessory muscle use, rales, rhonchi, wheezes - Cardiovascular Cardiovascular exam: Present: RRR, +S1, +S2. Absent: diastolic murmur, gallop, rubs, systolic murmur - GI/Abdominal GI/Abdominal exam: Present: normal bowel sounds, soft, no peritoneal signs. Absent: distended, tenderness - Expanded Lower Extremities Exam Lower Leg exam: Present: swelling (Bilateral +1 lower extremity pitting) - Neurological Exam Neurological exam: Present: oriented X3 - Psychiatric Psychiatric exam: Present: normal mood - Skin Skin exam: Present: normal color Internal Med - H&P Results - Labs CBC & Chem 7: 10/07/17 14:46 10/07/17 10:23 - Assessment and plan (1) Systolic CHF, acute on chronic Current Visit: No Status: Acute Assessment and plan: In the ER, patient was found to have a BNP of 1097 with elevated troponin of 0.13. He was also found to have evidence of vascular congestion on imaging. Will treat patient with IV Lasix 80 twice daily Will also consult cardiology and appreciate recommendations. (2) Elevated troponin Current Visit: No Status: Acute Assessment and plan: Patient with elevated troponin of 0.13 Suspect secondary to demand ischemia but due to extensive cardiac history will continue heparin drip started in the ER and trend serial troponins Will also monitor on continuous telemetry Cardiology consulted as above and appreciate further recommendations. (3) CAD (coronary artery disease) Current Visit: No Status: Acute Assessment and plan: Patient with history of CABG and defibrillator/AICD Cardiology consulted as above Qualifiers: Coronary Disease-Associated Artery/Lesion type: [place] artery [place] vs. transplanted heart: solomon heart Associated angina: angina presence unspecified Qualified Code(s): I25.10 - Atherosclerotic heart disease of solomon coronary artery without angina pectoris (4) DM2 (diabetes mellitus, type 2) Current Visit: No Status: Chronic Assessment and plan: Continue home medications Qualifiers: Diabetes mellitus extermination supervisor insulin use: with extermination supervisor use Diabetes mellitus complication status: without complication Qualified Code(s): E11.9 - Type 2 diabetes mellitus without complications; Z79.4 - terminologist (current) use of insulin; Z79.4 - terminologist (current) use of insulin; Z79.4 - long-term ( current) use of insulin; Z79.4 - long-term (current) use of insulin (5) DVT prophylaxis Current Visit: Yes Status: Acute Assessment and plan: Patient on heparin drip - Time Spent With Patient Total time spent is greater than 50% in coordination of care (as documented) at patient's floor/unit and/or counseling patient:
[2017-10-07] MEDS ORDERED: NON-FORMULARY MEDICATION 1 EACH EACH (Vit C/E/Zn/Coppr/Lutein/Zeaxan [Preservision Areds 2 PO SCH (21:00)
[2017-10-07] MEDS ORDERED: Furosemide 80 MG in 0.9 % Sodium Chloride 50 ML IVPB SCH (21:00)
[2017-10-07] MEDS ORDERED: Insulin DETEMIR 100 UNIT/ML X5UNITS SQ SCH (21:00)
[2017-10-07] MEDS: Insulin LISPRO 300 UNITS/3 ML VIAL SQ SCH (21:20)
[2017-10-07] MEDS: *HR* GlipiZIDE XL (24 HR) 10 MG TABLET PO SCH (21:20)
[2017-10-07] MEDS: Gabapentin 300 MG CAPSULE PO SCH (21:20)
[2017-10-08 01:47] LABS: Basophils # 0.1 K/mcL (0.0-0.2); Basophils % 1.4 %; Eosinophils # 0.5 K/mcL (0.0-0.6); Eosinophils % 7.2 %; Hematocrit 33.3 % (37.5-50.1); Hemoglobin 10.9 g/dL (12.9-16.9); Immature Granulocytes % 0.4 % (0-4); Lymphocytes % 27.6 %; Mean Corpuscular HGB Conc 32.7 g/dL (31.6-35.5); Mean Corpuscular Hemoglobin 26.1 pg (28.0-33.3); Mean Corpuscular Volume 79.9 fL (83.0-100.0); Monocytes # 1.1 K/mcL (0.0-1.3); Monocytes % 14.5 %; Neutrophils # 3.6 K/mcL (1.6-8.9); Platelet Count 226 K/mcL (140-400); Red Blood Count 4.17 M/mcL (4.19-5.50); Red Cell Distribution Width 17.3 % (11.5-14.5); Segmented Neutrophils % 48.9 %
[2017-10-08 02:10] LABS: Alanine Aminotransferase 15 Units/L (7-52); Albumin 3.7 g/dL (3.5-5.7); Albumin/Globulin Ratio 1.3 (1.1-2.2); Alkaline Phosphatase 102 Units/L (34-104); Aspartate Amino Transferase 19 Units/L (13-39); BUN/Creatinine Ratio 28 (6-26); Bilirubin,Total 0.7 mg/dL (0.3-1.0); Blood Urea Nitrogen 37 mg/dL (8-23); Calcium 8.8 mg/dL (8.6-10.3); Carbon Dioxide 28 mEq/L (23-29); Chloride 104 mEq/L (98-107); Chol/HDL Ratio 2.2 (0-4.9); Cholesterol 87 mg/dL (< 200); Globulin 2.9 g/dL (2.4-3.5); Glucose 53 mg/dL (70-105); HDL Cholesterol 39 mg/dL (40-59); LDL Cholesterol,Calculated 39 mg/dL (0-99); Magnesium 2.5 mg/dL (1.6-2.6); Osmolality,Calculated 296 (280-300); Potassium 3.3 mEq/L (3.5-5.1); Sodium 140 mEq/L (136-145); Total Protein 6.6 g/dL (6.4-8.9); Triglycerides 44 mg/dL (< 150); eGFR For Non-African Americans 53 (> 60)
--- NOTE | 2017-10-08 05:58 | Electrocardiograph Report ---
[facility] Test Date: 2017-10-07 Pat Name: Jodie De La Cruz Department: 103 Room: 2A44 Gender: M Nurse Special: [facility] : 1945 Requested By: [id number] Order Number: [id number] Reading MD: Jr Chavez Measurements Intervals [place] Rate: 72 P: 11 MT: 172 QRS: -63 QRSD: 217 T: 104 QT: 550 QTc: 574 Interpretive Statements ELECTRONIC VENTRICULAR PACEMAKER ABNORMAL RHYTHM ECG Electronically Signed On 10-08-2017 5:57:05 EDT by Jr Chavez
[2017-10-08] MEDS: Insulin LISPRO 300 UNITS/3 ML VIAL SQ SCH ×4 (07:36→21:52)
[2017-10-08] MEDS: *HR* GlipiZIDE XL (24 HR) 10 MG TABLET PO SCH (07:41)
[2017-10-08 07:42] LABS: Estimated Average Glucose 166 mg/dl; Hemoglobin A1C 7.4 %
[2017-10-08] MEDS: Furosemide 40 MG/4 ML VIAL IVP SCH ×2 (08:33→17:00)
[2017-10-08] MEDS: Aspirin 325 MG TABLET PO SCH (08:33)
[2017-10-08] MEDS: Multivit/Ca/Min/Fe/FA 1 TAB TABLET PO SCH (08:33)
[2017-10-08] MEDS: Gabapentin 300 MG CAPSULE PO SCH ×3 (08:51→22:24)
[2017-10-08] MEDS ORDERED: Furosemide 40 MG/4 ML VIAL IVP ONE (09:00)
--- NOTE | 2017-10-08 10:26 | Internal Med Progress Note ---
<Marlene Gee - Last Filed: 10/08/17 14:19> Hospitalist Progress Note - Encounter Date of Encounter: 10/08/17 Time of Encounter: 10:23 - Subjective Interval History: Patient is a 72 yo M with history of CABG, Pacemaker with AICD, HTN, HLD, and DM who presented to the emergency department on 10/07/17 with complaints of weight increase, leg swelling, and shortness of breath. He states he went from a 34 to 36 pant size over the last two weeks causing him and his concern. Today the patient states he is doing somewhat better in terms of his breathing and his legs are less swollen. He believes his abdomen feels less tense but he still gets short of breath with exertion. He has not had a bowel movement since he's been here but states it is not uncommon for him to go 3-4 days between bowel movements. - Exam Vitals: Temp Pulse Resp BP Pulse Ox 97.4 F L 68 18 126/73 90 10/08/17 07:11 10/08/17 07:11 10/08/17 07:11 10/08/17 07:11 10/08/17 08:54 Exam: General appearance: Present: A&O X 3, no acute distress, sitting upright in bed. Able to speak in full sentences and roll over for posterior lung examination - ENT ENT exam: Present: mucous membranes moist - Respiratory Respiratory exam: Present: CTAB. Absent: accessory muscle use, rales, rhonchi, wheezes - Cardiovascular Cardiovascular exam: Present: RRR, +S1, +S2. Absent: diastolic murmur, gallop, rubs, systolic murmur - GI/Abdominal GI/Abdominal exam: Present: normal bowel sounds, soft, no peritoneal signs. Absent: distended, tenderness - Expanded Lower Extremities Exam Lower Leg exam: Present: swelling (Bilateral +2 lower extremity pitting starting at knee, wearing compression stockings on lower legs) - Neurological Exam Neurological exam: Present: oriented X3 - Psychiatric Psychiatric exam: Present: normal mood, pleasant, conversant, willing to follow directions - Skin Skin exam: Present: normal color - Assessment and Plan (1) Congestive heart failure Current Visit: Yes Status: Acute Assessment and Plan: * Continue with diuresis, per patient his dry weight is approximately 200lbs, now 211 * BNP elevated to 1097 on arrival * Last EF was 30% * Cardiology following, agree with plan for continued diuresis, strict I's and O 's as well as daily weights * On lasix 80 IV BID * Will check daily BMP to monitor electrolytes * Todays K 3.3 - 40mg PO KCl given' * PT/OT evaluation pending (2) Elevated troponin I measurement Current Visit: No Status: Acute Assessment and Plan: * Elevated troponin to 0.13, now trending downwards x4, most recent was 0.10 * No ST elevation of EKG changes * Cardiology consulted, agree that this is likely demand ischemia from CHF exacerbation with no need for further intervention. They recommend to discontinue heparin drip (3) CAD (coronary atherosclerotic disease) Current Visit: No Status: Chronic Assessment and Plan: * Continues on ASA 325mg, simvastatin 20mg (4) DM2 (diabetes mellitus, type 2) Current Visit: No Status: Chronic Assessment and Plan: * Continues on sliding scale insulin * Overnight had morning low of 49, will continue to monitor closely * D/c glipizide while hospitalized and long acting insulin detemir to avoid hypoglycemia * Will monitor for hyperglycemia and make changes accordingly (5) Hypertension Current Visit: No Status: Chronic Assessment and Plan: * Continues on home metoprolol 25mg BID and losartan 50mg daily * Will continue to monitor vitals (6) Dyslipidemia Current Visit: No Status: Chronic Assessment and Plan: * Continues on simvastatin 20mg (7) DVT prophylaxis Current Visit: Yes Status: Acute Assessment and Plan: * Heparin drip for nSTEMI discontinued * Added heparin 5000U subQ q 12 hours for DVT prophylaxis (8) Elevated troponin Current Visit: No Status: Acute - Time Spent with Patient Total time spent is greater than 50% in coordination of care (as documented) at patient's floor/unit and/or counseling patient: 25 - 35 minutes Plan of Care Discussed with: patient Internal Medicine: Result - Labs CBC & Chem 7: 10/08/17 01:31 10/08/17 01:31 Labs: Short CBC 10/08/17 Range/Units 01:31 WBC 7.3 (4.3-11.1) K/mcL Hgb 10.9 L (12.9-16.9) g/dL Hct 33.3 L (37.5-50.1) % Plt Count 226 (140-400) K/mcL Neutrophils # 3.6 (1.6-8.9) K/mcL BMP 10/08/17 01:31 Sodium 140 Potassium 3.3 L Chloride 104 Carbon Dioxide 28 BUN 37 H Creatinine 1.34 H Glucose 53 L Calcium 8.8 Cardiac Enzymes 10/07/17 10/08/17 10/08/17 Range/Units 20:53 01:31 06:34 Troponin I 0.12 H* 0.11 H* 0.10 H* (< 0.04) ng/mL Liver Function 10/08/17 Range/Units 01:31 Total Bilirubin 0.7 (0.3-1.0) mg/dL AST 19 (13-39) Units/L ALT 15 (7-52) Units/L Alkaline Phosphatase 102 (34-104) Units/L Albumin 3.7 (3.5-5.7) g/dL - ABG Interpretation ABG results: PT/INR, D-dimer PT 15.3 Seconds (9.4-12.1) H 10/07/17 14:46 - VTE Documentation of Mechanical Device: Graduated compression elastic hosiery Consult Discharge Plan - Plan Referrals: Dino Manzanares MD [Primary Care Provider] - <Александр Ramos - Last Filed: 10/08/17 16:01> Hospitalist Progress Note - Encounter Date of Encounter: 10/08/17 - Exam Vitals: Temp Pulse Resp BP Pulse Ox 97.5 F L 86 17 113/67 95 10/08/17 10:47 10/08/17 10:47 10/08/17 10:47 10/08/17 10:47 10/08/17 10:47 - Assessment and Plan (1) Elevated troponin Current Visit: No Status: Acute (2) CAD (coronary artery disease) Current Visit: No Status: Acute (3) Systolic CHF, acute on chronic Current Visit: No Status: Acute (4) DM2 (diabetes mellitus, type 2) Current Visit: No Status: Chronic (5) DVT prophylaxis Current Visit: Yes Status: Acute - Time Spent with Patient Total time spent is greater than 50% in coordination of care (as documented) at patient's floor/unit and/or counseling patient: Internal Medicine: Result - Labs CBC & Chem 7: 10/08/17 01:31 10/08/17 01:31 Labs: Short CBC 10/08/17 Range/Units 01:31 WBC 7.3 (4.3-11.1) K/mcL Hgb 10.9 L (12.9-16.9) g/dL Hct 33.3 L (37.5-50.1) % Plt Count 226 (140-400) K/mcL Neutrophils # 3.6 (1.6-8.9) K/mcL BMP 10/08/17 01:31 Sodium 140 Potassium 3.3 L Chloride 104 Carbon Dioxide 28 BUN 37 H Creatinine 1.34 H Glucose 53 L Calcium 8.8 Cardiac Enzymes 10/07/17 10/08/17 10/08/17 Range/Units 20:53 01:31 06:34 Troponin I 0.12 H* 0.11 H* 0.10 H* (< 0.04) ng/mL Liver Function 10/08/17 Range/Units 01:31 Total Bilirubin 0.7 (0.3-1.0) mg/dL AST 19 (13-39) Units/L ALT 15 (7-52) Units/L Alkaline Phosphatase 102 (34-104) Units/L Albumin 3.7 (3.5-5.7) g/dL - ABG Interpretation ABG results: PT/INR, D-dimer PT 15.3 Seconds (9.4-12.1) H 10/07/17 14:46 - Attending Attestation I have seen and examined this patient independently. I have discussed with resident physician Dr. Tenorio regarding the management plan. Agree with the documentation. <Marlene Gee - Last Filed: 10/08/17 14:19> (1) Congestive heart failure Qualifiers: Heart failure type: unspecified Heart failure chronicity: acute on chronic Qualified Code(s): I50.9 - Heart failure, unspecified (3) CAD (coronary atherosclerotic disease) Qualifiers: Coronary Disease-Associated Artery/Lesion type: [place] artery [place] vs. transplanted heart: [place] heart Associated angina: without angina Qualified Code(s): I25.10 - Atherosclerotic heart disease of [place] coronary artery without angina pectoris (4) DM2 (diabetes mellitus, type 2) Qualifiers: Diabetes mellitus predatory animal exterminator insulin use: with snf use Diabetes mellitus complication status: without complication Qualified Code(s): E11.9 - Type 2 diabetes mellitus without complications; Z79.4 - custodial (current) use of insulin (5) Hypertension Qualifiers: Hypertension type: essential hypertension Qualified Code(s): I10 - Essential (primary) hypertension <Александр Ramos - Last Filed: 10/08/17 16:01> (2) CAD (coronary artery disease) Qualifiers: Coronary Disease-Associated Artery/Lesion type: [place] artery [place] vs. transplanted heart: [place] heart Associated angina: angina presence unspecified Qualified Code(s): I25.10 - Atherosclerotic heart disease of [place] coronary artery without angina pectoris (4) DM2 (diabetes mellitus, type 2) Qualifiers: Diabetes mellitus snf insulin use: with predatory animal exterminator use Diabetes mellitus complication status: without complication Qualified Code(s): E11.9 - Type 2 diabetes mellitus without complications; Z79.4 - technician terminal and repeater (current) use of insulin
--- NOTE | 2017-10-08 12:41 | Cardiology Consult Note ---
<JonoAlicja - Last Filed: 10/08/17 12:38> Date of Encounter: 10/08/17 Time of Encounter: 08:00 Assessment and Plan (1) Acute on chronic systolic (congestive) heart failure Current Visit: Yes Status: Acute Per cardiology: -Admitted with acute on chronic CHF. Known ischemic cardiomyopathy. On BB and ARB. Has AICD. -Reports increased shortness of breath, weight gain, and increased edema. -Volume overloaded on exam. -BNP 1000s. -Last TTE 04/2017 with 04/2017 TTE with LVEF 30%. Mildly dilated left ventricle. Mildly sclerotic aortic valve leaflets. Mild-moderate mitral regurgitation. Mild -moderate tricuspid regurgitation. Moderate pulmonary hypertension. The apex, apical inferior, mid inferior, basal inferior, apical anterior, mid anterior, basal anterior, apical septal, mid inferior septal, basal inferior septal, apical lateral, mid anterior lateral, basal anterior lateral, mid anterior septal, mid inferior lateral, basal anterior septal and basal inferior lateral patino were hypokinetic. -Reports compliance with diet and fluid restrictions at home. -States baseline weight 200 pounds, current weight 211 pounds. -On IV lasix. -Continue diuresis. -Strict i/os, fluid restriction, daily weights. -Monitor renal function closely. (2) Elevated troponin I measurement Current Visit: No Status: Acute Per cardiology: -Troponins 0.13, 0.12, 0.11, 0.1 in the setting of CHF. -Denies chest pain. -No acute ischemic ECG changes. -On asa, statin, BB, Heparin drip. -Last TTE as above. -Do not suspect NSTEMI, suspect demand ischemia related to above. Flat, adynamic troponins. No cardiac rehab consult warranted. -OK to discontinue heparin drip. (3) CAD (coronary atherosclerotic disease) Current Visit: No Status: Chronic Per cardiology: -Known CAD. -Last [facility] 2010 [facility] with Left Anterior Descending Artery - The proximal left anterior descending artery was 100% occluded. Left Circumflex Artery - There was a 40% discrete stenosis in the proximal left circumflex artery. Right Coronary Artery - The right coronary artery was dominant to the posterior circulation. The proximal right coronary artery was 100% occluded. Grafts - LAD Graft Graft #1 was engaged and an injection was performed. It was a saphenous vein graft with anastomosis at the mid left anterior descending artery. The graft is patent. - PDA Graft Graft #2 was engaged and an injection was performed. It was a right internal mammary artery graft with anastomosis at the proximal posterior descending artery. The graft is patent. -ON asa, statin, BB. -Stress 2014 negative for ischemia or infarct. Qualifiers: Coronary Disease-Associated Artery/Lesion type: [place] artery [place] vs. transplanted heart: [place] heart Associated angina: without angina Qualified Code(s): I25.10 - Atherosclerotic heart disease of [place] coronary artery without angina pectoris Discussion w patient/family: The assessment and plan as outlined above was discussed with the patient who expressed understanding and agreement. All questions were answered. Thank you for involving us in the care of your patient. Please call with any questions. Discussed and reviewed with Dr.John Talbot. History of Present Illness Consult date: 10/07/17 Requesting physician: Omer Dalton Consult reason: chf Chief complaint: shortness of breath, edema, weight gain History of present illness: Mr. De La Cruz is a 72 year old male with a relevant past medical history of CAD s/ p CABG, ICM has AICD, systolic CHF, DM who presented to [facility] with complaints of worsening shortness of breath. Patient also reported worsening lower extremity edema and weight gain. Patient states his weight is up about 10 pounds from baseline. Denies chest pain. Denies increased fatigue. Past Med Surg Social Fam HX - Past Medical History Attestation: Yes The following information was validated with the patient. Source: patient, old records reviewed Medical history: arthritis, cardiomyopathy, CHF, coronary artery disease, diabetes, GERD, hyperlipidemia, hypertension, myocardial infarction, osteoporosis, peripheral artery disease, other Psychiatric history: no psych history - Past Surgical History Surgical History: coronary bypass (CABG), LE Bypass, LE vascular intervention, pacemaker/AICD, other - Social History Smoking Status: Former smoker Smokeless Tobacco Status: No Alcohol use: occasionally Drug use: none - Family History Mother Adopted: No Living Status: Medications and Allergies Aspirin 325 mg PO DAILY 08/09/15 [History] Insulin Glargine [Lantus] 10 unit SQ HS 08/09/15 [History] Multivitamin [Multivitamins] 1 each PO DAILY 09/12/15 [History] GlipiZIDE XL (24 HR) [Glucotrol XL] 10 mg PO BID 09/13/15 [History] Metoprolol [Lopressor] 25 mg PO BID 09/13/15 [History] Nitroglycerin 0.4 mg SL Q5MIN PRN #30 tab.subl 09/13/15 [Rx] Simvastatin [Zocor] 20 mg PO HS #30 tablet 09/13/15 [Rx] Esomeprazole Magnesium [Nexium 24Hr] 20 mg PO DAILY 05/02/17 [History] Gabapentin [Neurontin] 300 mg PO TID 05/02/17 [History] Losartan Potassium [Cozaar] 50 mg PO DAILY 05/02/17 [History] Vit C/E/Zn/Coppr/Lutein/Zeaxan [Preservision Areds 2 Softgel] 1 cap PO BID 05/02 [History] Furosemide [Lasix] 80 mg PO BID 10/07/17 [History] 3 Allergy/AdvReac Type Severity Reaction Status Date / Time No Known Allergies Allergy Verified 10/07/17 09:25 All Systems Review: The remainder of the systems were reviewed and are negative - Constitutional Constitutional: weight gain - Cardiovascular Cardiovascular: as per HPI, dyspnea at rest, dyspnea on exertion, leg edema Physical Examination Vital Signs, Last 4 Hours Temp Pulse Resp BP Pulse Ox 10/08/17 10:47 97.5 F L 86 17 113/67 95 10/08/17 08:54 90 General: Conversant, No Apparent Distress HEENT: Atraumatic, Normocephaly, Mucus Membranes Moist Neck: No JVD, Normal carotid pulses Cardiac: Reg Rate and Rhythm, Normal S1 and S2, No Murmur Lungs: Normal Breath Sounds, No Wheeze, Rales, Rhonchi Neuro: Alert and responsive, No focal deficits noted Abdomen: Soft, Non-Tender Skin: No rashes noted on visualized skin Musculoskeletal: No Chest Wall Tenderness Extremities: No Clubbing, No Cyanosis, Normal Pulses, Other (Bilateral lower extremity pitting edema noted. ) Results 10/08/17 01:31 10/08/17 01:31 Lab Results Impressions Chest X-Ray 10/07/17 10:07 IMPRESSION: 1. Right base atelectasis. 2. Cardiomegaly. D/ / 10/07/2017 11:04:10 Sonia Mccann MD / shruthi Interpreting Provider: Sonia Mccann MD Chest CTA 10/07/17 12:30 IMPRESSION: No evidence of pulmonary embolism. Moderate right and small left pleural effusions with cardiomegaly suggesting CHF. Evidence of prior CABG and cardiac pacer device. No evidence of consolidation to suggest pneumonia. Unchanged position and location of a retained wire fragment in the anterior left neck soft tissues unchanged since at least 2006. D/ / 10/07/2017 13:33:03 Jose France MD / shruthi Interpreting Provider: Jose France MD Active Medications Acetaminophen (Tylenol) 650 mg PO Q6HR PRN PRN Reason: Mild Pain/Fever Stop: 04/08/18 19:22 Aspirin (Aspirin) 325 mg PO DAILY [facility] Stop: 04/09/18 09:01 Last Admin: 10/08/17 08:33 Dose: 325 mg Dextrose/Water (Dextrose 50% (Syg)) 25 ml IVP AD PRN PRN Reason: Hypoglycemia Stop: 04/08/18 19:31 Furosemide (Lasix) 80 mg IVP BIDDIURETIC [facility] Stop: 04/09/18 08:01 Last Admin: 10/08/17 08:33 Dose: 80 mg Gabapentin (Neurontin) 300 mg PO TID [facility] Stop: 04/08/18 21:01 Last Admin: 10/08/17 08:51 Dose: Not Given Glucagon (Glucagen) 1 mg IM ONCE PRN PRN Reason: Hypoglycemia Stop: 04/08/18 19:31 Glucose (Gluctose) 15 gm PO ONCE PRN PRN Reason: Hypoglycemia Stop: 04/08/18 19:31 Glucose (Gluctose) 30 gm PO ONCE PRN PRN Reason: Hypoglycemia Stop: 04/08/18 19:31 Heparin Sodium (Porcine) (Heparin) 5,000 unit SQ Q12HCO [facility] Stop: 04/09/18 18:01 Dextrose (Dextrose 5%) 1,000 mls @ 100 mls/hr IVC .Q10H PRN PRN Reason: HYPOGLYCEMIA Stop: 04/08/18 19:31 Insulin Human Lispro (Humalog) 0 units SQ TIDAC [facility] PRN Reason: Protocol Stop: 04/09/18 07:31 Last Admin: 10/08/17 11:28 Dose: 2 units Insulin Human Lispro (Humalog) 0 units SQ HS [facility] PRN Reason: Protocol Stop: 04/08/18 21:01 Last Admin: 10/07/17 21:20 Dose: 5 unit Losartan Potassium (Cozaar) 50 mg PO DAILY [facility] Stop: 04/09/18 09:01 Last Admin: 10/08/17 08:33 Dose: 50 mg Metoprolol Tartrate (Lopressor) 25 mg PO BID [facility] Stop: 04/08/18 21:01 Last Admin: 10/08/17 08:34 Dose: 25 mg Multivitamins/Calcium (Thera M Plus) 1 tab PO DAILY [facility] Stop: 04/09/18 09:01 Last Admin: 10/08/17 08:33 Dose: 1 tab Naloxone HCl (Narcan) 0.4 mg IVP Q2MIN PRN PRN Reason: SEE COMMENTS Stop: 04/08/18 19:22 Nitroglycerin (Nitroglycerin) 0.4 mg SL Q5MIN PRN PRN Reason: Chest Pain Stop: 04/08/18 19:13 Omeprazole (Prilosec) 20 mg PO DAILY [facility] Stop: 04/09/18 09:01 Last Admin: 10/08/17 08:33 Dose: 20 mg Simvastatin (Zocor) 20 mg PO HS [facility] PRN Reason: Protocol Stop: 04/08/18 21:01 Last Admin: 10/07/17 21:20 Dose: 20 mg Laboratory Tests 10/07/17 10/07/17 10/07/17 10:23 10:23 20:53 Hgb Creatinine 1.49 H Troponin I 0.13 H* 0.12 H* B-Natriuretic Peptide 1097 H 10/08/17 10/08/17 10/08/17 01:31 01:31 01:31 Hgb 10.9 L Creatinine 1.34 H Troponin I 0.11 H* B-Natriuretic Peptide 10/08/17 06:34 Hgb Creatinine Troponin I 0.10 H* B-Natriuretic Peptide - Imaging and Cardiology Chest Xray: report reviewed Echo: report reviewed Cardiac cath: report reviewed - EKG Interpretation EKG results cardiology: personally reviewed (ECG with paced rhythm, HR 72.), other (Telemetry reviewed with average HR previous 12 hours noted to be 73, paced rhythm.) Consult Discharge Plan - Plan Referrals: Dino Manzanares MD [Primary Care Provider] - <Iván Talbot - Last Filed: 10/08/17 13:49> Date of Encounter: 10/08/17 - Attending Attestation I have personally performed a face to face evaluation on this patient. I have reviewed and agree with the care plan. History and Exam by me shows: Acute on chronic systolic CHF exacerbation. Would diuresis aggressively and monitor renal function. Mat be a candidate for upgrade of his device to BIV in future but currently his RV pacing appears to be less than 20%. Assessment and Plan Discussion w patient/family: The assessment and plan as outlined above was discussed with the patient and/or family members who expressed understanding and agreement. All questions were answered. Thank you for involving us in the care of your patient. Please call with any questions. History of Present Illness History of present illness: Mr. De La Cruz is a 72 year old male All Systems Review: The remainder of the systems were reviewed and are negative Physical Examination Vital Signs, Last 4 Hours Temp Pulse Resp BP Pulse Ox 10/08/17 10:47 97.5 F L 86 17 113/67 95 Results 10/08/17 01:31 10/08/17 01:31 Lab Results 10/07/17 10/08/17 10/08/17 20:53 01:31 01:31 WBC 7.3 Hgb 10.9 L Hct 33.3 L Plt Count 226 Sodium Potassium Chloride Carbon Dioxide BUN Creatinine Glucose Calcium Magnesium Total Bilirubin AST ALT Alkaline Phosphatase Troponin I 0.12 H* 0.11 H* 10/08/17 10/08/17 01:31 06:34 WBC Hgb Hct Plt Count Sodium 140 Potassium 3.3 L Chloride 104 Carbon Dioxide 28 BUN 37 H Creatinine 1.34 H Glucose 53 L Calcium 8.8 Magnesium 2.5 Total Bilirubin 0.7 AST 19 ALT 15 Alkaline Phosphatase 102 Troponin I 0.10 H*
[2017-10-08] MEDS: *HR* Heparin 5,000 UNIT/ML VIAL SQ SCH (17:01)
[2017-10-09 04:50] LABS: Basophils # 0.1 K/mcL (0.0-0.2); Basophils % 1.3 %; Eosinophils # 0.6 K/mcL (0.0-0.6); Hematocrit 33.8 % (37.5-50.1); Hemoglobin 10.8 g/dL (12.9-16.9); Immature Granulocytes % 0.3 % (0-4); Lymphocytes # 1.5 K/mcL (0.6-4.6); Lymphocytes % 18.9 %; Mean Corpuscular Hemoglobin 25.2 pg (28.0-33.3); Mean Platelet Volume 9.9 fL (9.4-12.4); Monocytes % 12.1 %; Neutrophils # 4.7 K/mcL (1.6-8.9); Platelet Count 235 K/mcL (140-400); Red Blood Count 4.28 M/mcL (4.19-5.50); Red Cell Distribution Width 17.6 % (11.5-14.5); Segmented Neutrophils % 60.4 %
[2017-10-09 05:07] LABS: Albumin 3.9 g/dL (3.5-5.7); Albumin/Globulin Ratio 1.2 (1.1-2.2); Bilirubin,Total 0.7 mg/dL (0.3-1.0); Globulin 3.2 g/dL (2.4-3.5); Potassium 3.9 mEq/L (3.5-5.1); Total Protein 7.1 g/dL (6.4-8.9)
[2017-10-09] MEDS: *HR* Heparin 5,000 UNIT/ML VIAL SQ SCH ×2 (05:51→17:32)
[2017-10-09] MEDS: Insulin LISPRO 300 UNITS/3 ML VIAL SQ SCH ×4 (08:23→21:08)
[2017-10-09] MEDS: Multivit/Ca/Min/Fe/FA 1 TAB TABLET PO SCH (08:51)
[2017-10-09] MEDS: Furosemide 40 MG/4 ML VIAL IVP SCH ×2 (08:51→17:31)
[2017-10-09] MEDS: Gabapentin 300 MG CAPSULE PO SCH ×3 (08:51→20:53)
[2017-10-09] MEDS: Aspirin 325 MG TABLET PO SCH (08:51)
--- NOTE | 2017-10-09 14:03 | Internal Med Progress Note ---
Hospitalist Progress Note - Encounter Date of Encounter: 10/09/17 Time of Encounter: 09:00 - Subjective Interval History: Patient has improved the shortness of breath. More tolerated to exertion. In no acute respiratory distress. Still have mild to moderate bilateral edema. - Exam Vitals: Temp Pulse Resp BP Pulse Ox 97.4 F L 86 19 99/62 98 10/09/17 10:55 10/09/17 10:55 10/09/17 10:55 10/09/17 10:55 10/09/17 10:55 Exam: Patient is awake alert, oriented 3, in no acute distress. HEENT: NC/AT, PERRL Neck: Supple, no LAD Lungs: CTA, no wheezing Heart: S1S2, RRR Abd: Soft, NT, BS normal. Ext: ROM wnl, mild to moderate b/l pedal edema Neuro: AAO x 3, no focal neuro deficit - Assessment and Plan (1) Elevated troponin Current Visit: No Status: Acute Assessment and Plan: Patient with elevated troponin of 0.13. Patient denies chest pain. Consider demand ischemia. Cardio consult appreciated. (2) CAD (coronary artery disease) Current Visit: No Status: Acute Assessment and Plan: Patient with history of CABG and defibrillator/AICD Continue home medications (3) Systolic CHF, acute on chronic Current Visit: No Status: Acute Assessment and Plan: LVEF 30% . With acute exacerbation. - Continue Lasix 80 mg IV twice a day, accumulated I/O -1 L. Symptoms has improved. Continue fluid restriction - Cardiology consult appreciated. - On ARB and BB, will cont. - On AICD. (4) DM2 (diabetes mellitus, type 2) Current Visit: No Status: Chronic Assessment and Plan: Continue basal and sliding scale insulin coverage (5) DVT prophylaxis Current Visit: Yes Status: Acute Assessment and Plan: Heparin subcutaneously - Time Spent with Patient Total time spent is greater than 50% in coordination of care (as documented) at patient's floor/unit and/or counseling patient: 40 minutes Greater than 35 minutes Internal Medicine: Result - Labs CBC & Chem 7: 10/09/17 04:18 10/09/17 04:18 Labs: Short CBC 10/09/17 Range/Units 04:18 WBC 7.8 (4.3-11.1) K/mcL Hgb 10.8 L (12.9-16.9) g/dL Hct 33.8 L (37.5-50.1) % Plt Count 235 (140-400) K/mcL Neutrophils # 4.7 (1.6-8.9) K/mcL BMP 10/09/17 04:18 Sodium 140 Potassium 3.9 Chloride 104 Carbon Dioxide 26 BUN 36 H Creatinine 1.43 H Glucose 57 L Calcium 9.0 Liver Function 10/09/17 Range/Units 04:18 Total Bilirubin 0.7 (0.3-1.0) mg/dL AST 20 (13-39) Units/L ALT 13 (7-52) Units/L Alkaline Phosphatase 99 (34-104) Units/L Albumin 3.9 (3.5-5.7) g/dL - ABG Interpretation ABG results: PT/INR, D-dimer PT 15.3 Seconds (9.4-12.1) H 10/07/17 14:46 - VTE Documentation of Mechanical Device: Graduated compression elastic hosiery Consult Discharge Plan - Plan Referrals: Dino Manzanares MD [Primary Care Provider] - (2) CAD (coronary artery disease) Qualifiers: Coronary Disease-Associated Artery/Lesion type: [place] artery [place] vs. transplanted heart: [place] heart Associated angina: angina presence unspecified Qualified Code(s): I25.10 - Atherosclerotic heart disease of [place] coronary artery without angina pectoris (4) DM2 (diabetes mellitus, type 2) Qualifiers: Diabetes mellitus mcfp insulin use: with mcfp use Diabetes mellitus complication status: without complication Qualified Code(s): E11.9 - Type 2 diabetes mellitus without complications; Z79.4 - dedicated intermodal truck driver (current) use of insulin
--- NOTE | 2017-10-09 16:06 | Cardiology Progress Note ---
Date of Encounter: 10/09/17 Time of Encounter: 13:00 Assessment and Plan (1) Systolic CHF, acute on chronic Current Visit: No Status: Acute Per cardiology: -Admitted with acute on chronic CHF. Known ischemic cardiomyopathy. On BB and ARB. Has AICD. -Reports increased shortness of breath, weight gain, and increased edema. -Volume overloaded on exam. -BNP 1000s. - reports increased salt intake recently. -Last TTE 04/2017 with 04/2017 TTE with LVEF 30%. Mildly dilated left ventricle. Mildly sclerotic aortic valve leaflets. Mild-moderate mitral regurgitation. Mild -moderate tricuspid regurgitation. Moderate pulmonary hypertension. The apex, apical inferior, mid inferior, basal inferior, apical anterior, mid anterior, basal anterior, apical septal, mid inferior septal, basal inferior septal, apical lateral, mid anterior lateral, basal anterior lateral, mid anterior septal, mid inferior lateral, basal anterior septal and basal inferior lateral patino were hypokinetic. -States baseline weight 200 pounds, current weight 211 pounds. -On IV lasix. -Continue diuresis. Continues to have significant fluid overload. Monitor BMP. Noted Scr slightly increased. -Strict i/os, fluid restriction, daily weights. Low sodium diet stressed. (2) CAD (coronary atherosclerotic disease) Current Visit: No Status: Chronic Per cardiology: -Known CAD. -Last [facility] [address] [facility] with Left Anterior Descending Artery - The proximal left anterior descending artery was 100% occluded. Left Circumflex Artery - There was a 40% discrete stenosis in the proximal left circumflex artery. Right Coronary Artery - The right coronary artery was dominant to the posterior circulation. The proximal right coronary artery was 100% occluded. Grafts - LAD Graft Graft #1 was engaged and an injection was performed. It was a saphenous vein graft with anastomosis at the mid left anterior descending artery. The graft is patent. - PDA Graft Graft #2 was engaged and an injection was performed. It was a right internal mammary artery graft with anastomosis at the proximal posterior descending artery. The graft is patent. -ON asa, statin, BB. -Stress 2013 negative for ischemia or infarct. Qualifiers: Coronary Disease-Associated Artery/Lesion type: [place] artery [place] vs. transplanted heart: [place] heart Associated angina: without angina Qualified Code(s): I25.10 - Atherosclerotic heart disease of [place] coronary artery without angina pectoris (3) Presence of combination internal cardiac defibrillator (ICD) and pacemaker Current Visit: No Status: Chronic (4) Ischemic cardiomyopathy Current Visit: No Status: Acute Discussion w patient/family: The assessment and plan as outlined above was discussed with the patient and/or family members who expressed understanding and agreement. All questions were answered. Thank you for involving us in the care of your patient. Please call with any questions. Subjective Principal diagnosis: CHF Interval history: Patient continues to be significantly fluid overload. Unfortunatley he developed a rash after cutting bushes and feels he has poison mumtaz. His rash continues to spread and face is swollen. Objective Vital Signs, Last 4 Hours Temp Pulse Resp BP Pulse Ox 10/09/17 16:01 97.8 F 72 18 110/73 91 General: Conversant, No Apparent Distress, Other (drowsy on my exam) HEENT: Atraumatic, Normocephaly, Mucus Membranes Moist Neck: No JVD, Normal carotid pulses Cardiac: Reg Rate and Rhythm, Normal S1 and S2, No Murmur Lungs: No Wheeze, Rales, Rhonchi, Other (breath sound diminished. ) Neuro: Alert and responsive, No focal deficits noted Abdomen: Soft, Non-Tender Skin: Other (Scratched noted over shoulder, abdomen .) Musculoskeletal: No Chest Wall Tenderness Extremities: No Clubbing, No Cyanosis, Normal Pulses, Other (2+ edema) Results 10/09/17 04:18 10/09/17 04:18 Lab Results 10/09/17 10/09/17 04:18 04:18 WBC 7.8 Hgb 10.8 L Hct 33.8 L Plt Count 235 Sodium 140 Potassium 3.9 Chloride 104 Carbon Dioxide 26 BUN 36 H Creatinine 1.43 H Glucose 57 L Calcium 9.0 Total Bilirubin 0.7 AST 20 ALT 13 Alkaline Phosphatase 99 - Imaging and Cardiology Echo: report reviewed - EKG Interpretation EKG results cardiology: personally reviewed - VTE Documentation of Mechanical Device: Graduated compression elastic hosiery Consult Discharge Plan - Plan Referrals: Dino Manzanares MD [Primary Care Provider] -
[2017-10-09] MEDS ORDERED: Pramoxine/Zinc acetate Lotion 177 APPL/177 ML BOTTLE TP PRN (16:17)
[2017-10-09] MEDS ORDERED: Calamine/Zinc oxide Lotion 120 ML BOTTLE TP PRN (17:45)
[2017-10-10 04:45] LABS: Basophils # 0.1 K/mcL (0.0-0.2); Basophils % 1.3 %; Eosinophils # 0.5 K/mcL (0.0-0.6); Eosinophils % 8.8 %; Hematocrit 33.4 % (37.5-50.1); Hemoglobin 10.5 g/dL (12.9-16.9); Immature Granulocytes % 0.2 % (0-4); Lymphocytes # 1.2 K/mcL (0.6-4.6); Lymphocytes % 20.9 %; Mean Corpuscular HGB Conc 31.4 g/dL (31.6-35.5); Mean Corpuscular Hemoglobin 25.3 pg (28.0-33.3); Mean Corpuscular Volume 80.5 fL (83.0-100.0); Mean Platelet Volume 9.7 fL (9.4-12.4); Monocytes # 0.8 K/mcL (0.0-1.3); Monocytes % 13.5 %; Neutrophils # 3.3 K/mcL (1.6-8.9); Platelet Count 211 K/mcL (140-400); Red Blood Count 4.15 M/mcL (4.19-5.50); Red Cell Distribution Width 17.4 % (11.5-14.5); Segmented Neutrophils % 55.3 %
[2017-10-10 05:07] LABS: Alanine Aminotransferase 13 Units/L (7-52); Albumin 3.6 g/dL (3.5-5.7); Albumin/Globulin Ratio 1.2 (1.1-2.2); Alkaline Phosphatase 90 Units/L (34-104); Aspartate Amino Transferase 18 Units/L (13-39); BUN/Creatinine Ratio 27 (6-26); Bilirubin,Total 0.8 mg/dL (0.3-1.0); Blood Urea Nitrogen 35 mg/dL (8-23); Carbon Dioxide 31 mEq/L (23-29); Chloride 104 mEq/L (98-107); Globulin 2.9 g/dL (2.4-3.5); Glucose 92 mg/dL (70-105); Osmolality,Calculated 304 (280-300); Potassium 3.7 mEq/L (3.5-5.1); Sodium 143 mEq/L (136-145); Total Protein 6.5 g/dL (6.4-8.9); eGFR For Non-African Americans 54 (> 60)
[2017-10-10] MEDS: *HR* Heparin 5,000 UNIT/ML VIAL SQ SCH ×2 (05:16→17:10)
[2017-10-10] MEDS: Multivit/Ca/Min/Fe/FA 1 TAB TABLET PO SCH (08:14)
[2017-10-10] MEDS: Furosemide 40 MG/4 ML VIAL IVP SCH ×2 (08:14→17:09)
[2017-10-10] MEDS: Insulin LISPRO 300 UNITS/3 ML VIAL SQ SCH ×4 (08:15→20:49)
[2017-10-10] MEDS: Aspirin 325 MG TABLET PO SCH (08:15)
[2017-10-10] MEDS: Gabapentin 300 MG CAPSULE PO SCH ×3 (08:15→20:57)
--- NOTE | 2017-10-10 08:54 | Cardiology Progress Note ---
Date of Encounter: 10/10/17 Time of Encounter: 08:52 Assessment and Plan (1) Systolic CHF, acute on chronic Current Visit: No Status: Acute Per cardiology: -Admitted with acute on chronic CHF. Known ischemic cardiomyopathy. On BB and ARB. Has AICD. -Reports increased shortness of breath, weight gain, and increased edema. Reported 11 lb weight gain. -BNP 1000s. -Reports increased salt intake recently while eating fresh vegetables from his garden. -Last TTE 04/2017 with 04/2017 TTE with LVEF 30%. Mildly dilated left ventricle. Mildly sclerotic aortic valve leaflets. Mild-moderate mitral regurgitation. Mild -moderate tricuspid regurgitation. Moderate pulmonary hypertension. The apex, apical inferior, mid inferior, basal inferior, apical anterior, mid anterior, basal anterior, apical septal, mid inferior septal, basal inferior septal, apical lateral, mid anterior lateral, basal anterior lateral, mid anterior septal, mid inferior lateral, basal anterior septal and basal inferior lateral patino were hypokinetic. -States baseline weight 200 pounds, current weight 205 pounds. -On IV lasix. -Continue diuresis for 24 hours and then convert to oral lasix. He already received dose this morning. -Strict i/os, fluid restriction, daily weights. Low sodium diet stressed. Close out-pt cardiology f/u will be scheduled. Cardiology will sign off. Call with questions. (2) CAD (coronary atherosclerotic disease) Current Visit: No Status: Chronic Per cardiology: Known CAD s/p CABG. Last [facility] 2010 [facility] showed 2/2 patent bypass. (SVG-LAD, ALEXY-RPDA) Stress 2013 negative for ischemia or infarct. Denies chest pain. ON asa, statin, BB. Qualifiers: Coronary Disease-Associated Artery/Lesion type: [place] artery [place] vs. transplanted heart: [place] heart Associated angina: without angina Qualified Code(s): I25.10 - Atherosclerotic heart disease of [place] coronary artery without angina pectoris (3) Presence of combination internal cardiac defibrillator (ICD) and pacemaker Current Visit: No Status: Chronic (4) Ischemic cardiomyopathy Current Visit: No Status: Acute Discussion w patient/family: The assessment and plan as outlined above was discussed with the patient and/or family members who expressed understanding and agreement. All questions were answered. Thank you for involving us in the care of your patient. Please call with any questions. Subjective Principal diagnosis: CHF Interval history: Patient has pulled off his monitor and gown and states he is feeling better and want sto go home. Unfortunately he developed a rash after cutting bushes and feels he has poison mumtaz. His rash has improved with caladryl cream. BLE edema has improved. Objective Vital Signs, Last 4 Hours Temp Pulse Resp BP Pulse Ox 10/10/17 07:31 97.6 F 62 19 116/76 96 10/10/17 05:10 97.7 F 83 17 110/67 94 General: Conversant, No Apparent Distress, Other (Appears confused but oriented x3.) HEENT: Atraumatic, Normocephaly, Mucus Membranes Moist Neck: No JVD, Normal carotid pulses Cardiac: Reg Rate and Rhythm, Normal S1 and S2, No Murmur Lungs: Normal Breath Sounds, No Wheeze, Rales, Rhonchi Neuro: Alert and responsive, No focal deficits noted Abdomen: Soft, Non-Tender Skin: Other (Rash on shoulder and abdomen) Musculoskeletal: No Chest Wall Tenderness Extremities: No Clubbing, No Cyanosis, Normal Pulses, Other (1+ pitting edema BLE. ) Results 10/10/17 04:15 10/10/17 04:15 Lab Results 10/10/17 10/10/17 04:15 04:15 WBC 5.9 Hgb 10.5 L Hct 33.4 L Plt Count 211 Sodium 143 Potassium 3.7 Chloride 104 Carbon Dioxide 31 H BUN 35 H Creatinine 1.30 Glucose 92 Calcium 9.0 Total Bilirubin 0.8 AST 18 ALT 13 Alkaline Phosphatase 90 - Imaging and Cardiology Echo: report reviewed - EKG Interpretation EKG results cardiology: personally reviewed - VTE Documentation of Mechanical Device: Graduated compression elastic hosiery Consult Discharge Plan - Plan Referrals: Dino Manzanares MD [Primary Care Provider] -
[2017-10-10] MEDS ORDERED: Lactulose Oral Soln 20 GM/30 ML UDC PO ONE (10:37)
--- NOTE | 2017-10-10 11:08 | Internal Med Progress Note ---
Hospitalist Progress Note - Encounter Date of Encounter: 10/10/17 Time of Encounter: 09:00 - Subjective Interval History: Patient has significantly improved the shortness of breath. More tolerated to exertion. In no acute respiratory distress. Improved leg swelling. C/O constipation x 4 days, and attribute it to "less activity". - Exam Vitals: Temp Pulse Resp BP Pulse Ox 97.6 F 62 19 116/76 96 10/10/17 07:31 10/10/17 07:31 10/10/17 07:31 10/10/17 07:31 10/10/17 07:31 Exam: Pt is AAO x 3, in NAD HEENT: AC/NT, PERRL Neck: Supple, no LAD Lungs: CTA b/l Heart: S1S2, RRR Abd: Soft, NT, normal BS Ext: ROM wnl, mild b/l pedal edema improved Neuro: AAO x 3, no focal deficit. - Assessment and Plan (1) Elevated troponin Current Visit: No Status: Acute Assessment and Plan: Patient with elevated troponin of 0.13. Patient denies chest pain. Consider demand ischemia. Cardio consult appreciated. (2) CAD (coronary artery disease) Current Visit: No Status: Acute Assessment and Plan: Patient with history of CABG and defibrillator/AICD Continue home medications (3) Systolic CHF, acute on chronic Current Visit: No Status: Acute Assessment and Plan: LVEF 30% . With acute exacerbation. - Continue Lasix 80 mg IV twice a day. Symptoms has improved significantly. Continue fluid restriction - Cardiology consult appreciated. - On ARB and BB, will cont. - On AICD. - Plan to switch to po diuretics and dc home tomorrow. (4) DM2 (diabetes mellitus, type 2) Current Visit: No Status: Chronic Assessment and Plan: Continue basal and sliding scale insulin coverage (5) DVT prophylaxis Current Visit: Yes Status: Acute Assessment and Plan: Heparin subcutaneously - Summary of Assessment and Plan Summary of Assessment and Plan: Plan to dc home tomorrow. - Time Spent with Patient Total time spent is greater than 50% in coordination of care (as documented) at patient's floor/unit and/or counseling patient: Greater than 35 minutes Plan of Care Discussed with: patient Internal Medicine: Result - Labs CBC & Chem 7: 10/10/17 04:15 10/10/17 04:15 Labs: Short CBC 10/10/17 Range/Units 04:15 WBC 5.9 (4.3-11.1) K/mcL Hgb 10.5 L (12.9-16.9) g/dL Hct 33.4 L (37.5-50.1) % Plt Count 211 (140-400) K/mcL Neutrophils # 3.3 (1.6-8.9) K/mcL BMP 10/10/17 04:15 Sodium 143 Potassium 3.7 Chloride 104 Carbon Dioxide 31 H BUN 35 H Creatinine 1.30 Glucose 92 Calcium 9.0 Liver Function 10/10/17 Range/Units 04:15 Total Bilirubin 0.8 (0.3-1.0) mg/dL AST 18 (13-39) Units/L ALT 13 (7-52) Units/L Alkaline Phosphatase 90 (34-104) Units/L Albumin 3.6 (3.5-5.7) g/dL - ABG Interpretation ABG results: PT/INR, D-dimer PT 15.3 Seconds (9.4-12.1) H 10/07/17 14:46 - VTE Documentation of Mechanical Device: Graduated compression elastic hosiery Consult Discharge Plan - Plan Referrals: Dino Manzanares MD [Primary Care Provider] - (2) CAD (coronary artery disease) Qualifiers: Coronary Disease-Associated Artery/Lesion type: [place] artery [place] vs. transplanted heart: [place] heart Associated angina: angina presence unspecified Qualified Code(s): I25.10 - Atherosclerotic heart disease of [place] coronary artery without angina pectoris (4) DM2 (diabetes mellitus, type 2) Qualifiers: Diabetes mellitus long chain beamer insulin use: with long chain beamer use Diabetes mellitus complication status: without complication Qualified Code(s): E11.9 - Type 2 diabetes mellitus without complications; Z79.4 - termite control technician (current) use of insulin
[2017-10-11 05:30] LABS: Basophils # 0.1 K/mcL (0.0-0.2); Basophils % 1.1 %; Eosinophils # 0.5 K/mcL (0.0-0.6); Eosinophils % 8.5 %; Hematocrit 31.5 % (37.5-50.1); Hemoglobin 10.1 g/dL (12.9-16.9); Immature Granulocytes % 0.2 % (0-4); Lymphocytes # 0.9 K/mcL (0.6-4.6); Lymphocytes % 15.2 %; Mean Corpuscular HGB Conc 32.1 g/dL (31.6-35.5); Mean Corpuscular Hemoglobin 25.4 pg (28.0-33.3); Mean Corpuscular Volume 79.3 fL (83.0-100.0); Mean Platelet Volume 10.1 fL (9.4-12.4); Monocytes # 0.7 K/mcL (0.0-1.3); Neutrophils # 3.8 K/mcL (1.6-8.9); Platelet Count 210 K/mcL (140-400); Red Blood Count 3.97 M/mcL (4.19-5.50); Red Cell Distribution Width 17.4 % (11.5-14.5)
[2017-10-11 05:51] LABS: Alanine Aminotransferase 12 Units/L (7-52); Albumin 3.8 g/dL (3.5-5.7); Albumin/Globulin Ratio 1.2 (1.1-2.2); Alkaline Phosphatase 91 Units/L (34-104); Aspartate Amino Transferase 18 Units/L (13-39); BUN/Creatinine Ratio 31 (6-26); Bilirubin,Total 0.8 mg/dL (0.3-1.0); Blood Urea Nitrogen 36 mg/dL (8-23); Calcium 8.7 mg/dL (8.6-10.3); Carbon Dioxide 28 mEq/L (23-29); Chloride 101 mEq/L (98-107); Globulin 3.1 g/dL (2.4-3.5); Glucose 137 mg/dL (70-105); Osmolality,Calculated 300 (280-300); Potassium 3.7 mEq/L (3.5-5.1); Sodium 140 mEq/L (136-145); Total Protein 6.9 g/dL (6.4-8.9); eGFR For Non-African Americans > 60 (> 60)
[2017-10-11] MEDS: *HR* Heparin 5,000 UNIT/ML VIAL SQ SCH (06:28)
[2017-10-11 07:24] VITALS: BP 111/74
[2017-10-11] MEDS: Insulin LISPRO 300 UNITS/3 ML VIAL SQ SCH (08:04)
[2017-10-11] MEDS: Furosemide 40 MG/4 ML VIAL IVP SCH (08:32)
[2017-10-11] MEDS: Multivit/Ca/Min/Fe/FA 1 TAB TABLET PO SCH (08:33)
[2017-10-11] MEDS: Gabapentin 300 MG CAPSULE PO SCH (08:33)
[2017-10-11] MEDS: Aspirin 325 MG TABLET PO SCH (08:33)
--- NOTE | 2017-10-11 10:20 | Discharge Summary ---
<Marlene Gee - Last Filed: 10/11/17 15:31> Date of Encounter: 10/11/17 Time of Encounter: 10:23 - Discharge Diagnosis (1) Congestive heart failure Priority: Primary Status: Acute Qualifiers: Heart failure type: unspecified Heart failure chronicity: acute on chronic Qualified Code(s): I50.9 - Heart failure, unspecified (2) Elevated troponin I measurement Priority: Secondary Status: Acute (3) CAD (coronary atherosclerotic disease) Priority: Secondary Status: Chronic Qualifiers: Coronary Disease-Associated Artery/Lesion type: [place] artery [place] vs. transplanted heart: [place] heart Associated angina: without angina Qualified Code(s): I25.10 - Atherosclerotic heart disease of [place] coronary artery without angina pectoris (4) DM2 (diabetes mellitus, type 2) Priority: Secondary Status: Chronic Qualifiers: Diabetes mellitus penitentiary insulin use: with penitentiary use Diabetes mellitus complication status: without complication Qualified Code(s): E11.9 - Type 2 diabetes mellitus without complications; Z79.4 - prison (current) use of insulin (5) Hypertension Priority: Secondary Status: Chronic Qualifiers: Hypertension type: essential hypertension Qualified Code(s): I10 - Essential (primary) hypertension (6) Dyslipidemia Priority: Secondary Status: Chronic (7) DVT prophylaxis Priority: Secondary Status: Acute Hospital course: Mr. De La Cruz is a 72 yo M with history of CABG, Pacemaker with AICD, HTN, HLD, and DM who presented to the emergency department on 10/07/17 with complaints of weight increase, leg swelling, and shortness of breath. He states he went from a 34 to 36 pant size over the last two weeks causing him and his concern. On admission his BNP was elevated and he was found to be approximately 15 pounds above his stated dry weight. Initial CTA revealed no evidence of PE but did show bilateral pleural effusions. Troponin elevated to 0.13 thus heparin drip was started for NSTEMI but cardiology determined this was likely due to demand ischemia as a result of a CHF exacerbation. He was diuresed with IV lasix with improvement in his fluid status and dyspnea. On discharge the patient is much improved. Patient will follow up with cardiology as an outpatient and continue his home dosage of Lasix 80mg BID. Encouraged him to follow up with his primary care physician and cardiology. The patient agrees with and understands the course of treatment plan including plan for discharge and follow up. All questions answered. Encouraged the patient to discontinue smoking. Discharge discussed with: patient Time spent discussing smoking cessation with patient: 3 to 10 minutes - Time Spent with Patient Total time spent providing and/or coordinating discharge services: Greater than 30 minutes - Discharge Medications Home Medications: Aspirin 325 mg PO DAILY 08/09/15 [History] Insulin Glargine [Lantus] 10 unit SQ HS 08/09/15 [History] Multivitamin [Multivitamins] 1 each PO DAILY 09/12/15 [History] GlipiZIDE XL (24 HR) [Glucotrol XL] 10 mg PO BID 09/13/15 [History] Metoprolol [Lopressor] 25 mg PO BID 09/13/15 [History] Nitroglycerin 0.4 mg SL Q5MIN PRN #30 tab.subl 09/13/15 [Rx] Simvastatin [Zocor] 20 mg PO HS #30 tablet 09/13/15 [Rx] Esomeprazole Magnesium [Nexium 24Hr] 20 mg PO DAILY 05/02/17 [History] Gabapentin [Neurontin] 300 mg PO TID 05/02/17 [History] Losartan Potassium [Cozaar] 50 mg PO DAILY 05/02/17 [History] Vit C/E/Zn/Coppr/Lutein/Zeaxan [Preservision Areds 2 Softgel] 1 cap PO BID 05/02 [History] Furosemide [Lasix] 80 mg PO BID 10/07/17 [History] Allergies/Adverse Reactions: 3 Allergy/AdvReac Type Severity Reaction Status Date / Time No Known Allergies Allergy Verified 10/07/17 09:25 Date of admission: 10/07/17 19:21 Primary care physician: Dino Manzanares MD Discharging clinician: Marlene Gee Anticipated date of discharge: 10/11/17 - Constitutional Vitals: Temp Pulse Resp BP Pulse Ox 98.0 F 90 18 111/74 96 10/11/17 07:22 10/11/17 07:22 10/11/17 07:22 10/11/17 07:22 10/11/17 07:22 General appearance: Present: cooperative, A&O X 3, pleasant, no acute distress, answers questions appropriately Exam: Patient sitting upright in bed. Speaks in full sentences. - Head Head exam: Present: atraumatic, normocephalic - Respiratory Respiratory exam: Present: CTAB. Absent: accessory muscle use, rales, rhonchi, wheezes - Cardiovascular Cardiovascular exam: Present: RRR, +S1, +S2. Absent: diastolic murmur, gallop, rubs, systolic murmur - GI/Abdominal GI/Abdominal exam: Present: normal bowel sounds, soft, no peritoneal signs. Absent: distended, tenderness - Extremities Exam Additional comments: edema 1+ from ankle to knee - Patient Status Disposition: Home, Self-Care Condition: Good Functional capacity at discharge: independent ambulation Overall status at discharge: patient is progressing back to baseline - Discharge Instructions Follow Up With: Dino Manzanares MD [Primary Care Provider] - 10/18/17 10:30 am (Please follow up as schedule..) Additional Instructions: - Please follow up with your primary care physician and focused factory manager within the next week. - Please restrict your salt intake as recommended by your focused factory manager. - Diet and Activity Activity: increase activity as tolerated Diet: advance to your usual diet, diabetic diet, low salt diet - VTE Documentation of Mechanical Device: Graduated compression elastic hosiery <Александр Ramos - Last Filed: 10/11/17 17:24> Date of Encounter: 10/11/17 - Discharge Diagnosis (1) Elevated troponin Status: Acute (2) CAD (coronary artery disease) Status: Acute Qualifiers: Coronary Disease-Associated Artery/Lesion type: [place] artery [place] vs. transplanted heart: [place] heart Associated angina: angina presence unspecified Qualified Code(s): I25.10 - Atherosclerotic heart disease of [place] coronary artery without angina pectoris (3) Systolic CHF, acute on chronic Status: Acute (4) DM2 (diabetes mellitus, type 2) Status: Chronic Qualifiers: Diabetes mellitus penitentiary insulin use: with intermediate manager use Diabetes mellitus complication status: without complication Qualified Code(s): E11.9 - Type 2 diabetes mellitus without complications; Z79.4 - prison (current) use of insulin (5) DVT prophylaxis Status: Acute Hospital course: Mr. De La Cruz is a 72 year old male - Time Spent with Patient Total time spent providing and/or coordinating discharge services: Date of admission: 10/07/17 19:21 Primary care physician: Dino Manzanares MD - Constitutional Vitals: Temp Pulse Resp BP Pulse Ox 98.0 F 90 18 111/74 96 10/11/17 07:22 10/11/17 07:22 10/11/17 07:22 10/11/17 07:22 10/11/17 07:22 - Attending Attestation I have seen and examined this patient independently. I have discussed with the resident physician Dr. Tenorio regarding the discharge and follow up plan. Agree with the documentation.
== END 2017-10-11 12:28 | disposition home or self-care (01) | DRG 292 ==
LOC: EMEROO 09:22 → 2ANU 09:22
PROVIDERS: ADMIT Hospitalist; ATTEND Hospitalist

== ENCOUNTER 2017-12-28 16:30 | Inpatient (IN) ==
[2017-12-28 17:19] LABS: Basophils # 0.1 K/mcL (0.0-0.2); Basophils % 1.6 %; Eosinophils # 0.7 K/mcL (0.0-0.6); Eosinophils % 8.8 %; Hematocrit 35.6 % (37.5-50.1); Hemoglobin 11.3 g/dL (12.9-16.9); Immature Granulocytes % 0.3 % (0-4); Lymphocytes % 12.4 %; Mean Corpuscular HGB Conc 31.7 g/dL (31.6-35.5); Mean Corpuscular Hemoglobin 25.1 pg (28.0-33.3); Mean Corpuscular Volume 78.9 fL (83.0-100.0); Mean Platelet Volume 9.8 fL (9.4-12.4); Monocytes # 0.9 K/mcL (0.0-1.3); Monocytes % 11.4 %; Neutrophils # 5.2 K/mcL (1.6-8.9); Platelet Count 255 K/mcL (140-400); Red Blood Count 4.51 M/mcL (4.19-5.50); Red Cell Distribution Width 18.8 % (11.5-14.5); Segmented Neutrophils % 65.5 %
[2017-12-28 17:41] LABS: Albumin 3.9 g/dL (3.5-5.7); Albumin/Globulin Ratio 1.1 (1.1-2.2); Bilirubin,Direct 0.3 mg/dL (0.0-0.2); Bilirubin,Indirect 0.5 mg/dL (0.0-1.2); Bilirubin,Total 0.8 mg/dL (0.3-1.0); Calcium 9.3 mg/dL (8.6-10.3); Globulin 3.7 g/dL (2.4-3.5); Total Protein 7.6 g/dL (6.4-8.9)
[2017-12-28 17:45] LABS: Troponin I 0.06 ng/mL (< 0.04)
[2017-12-28] MEDS ORDERED: Furosemide 40 MG/4 ML VIAL IVP ONE (18:00)
--- NOTE | 2017-12-28 18:05 | Emergency Department Note ---
Disposition Clinical Impression: Elevated troponin I measurement CHF (congestive heart failure) Qualifiers: Heart failure type: unspecified Heart failure chronicity: acute on chronic Qualified Code(s): I50.9 - Heart failure, unspecified Disposition: Admitted As Inpatient Condition: Fair General Adult HPI - General Chief complaint: ED Shortness of Breath/Dyspnea Stated complaint: CHF Exac Time Seen by Provider: 12/28/17 16:40 Source: patient Mode of arrival: ambulatory Limitations: no limitations Nursing Notes Reviewed: Yes Vital Signs Reviewed: Yes - History of Present Illness HPI Narrative: 72-year-old male with significant past medical history of congestive heart failure and coronary artery disease presenting to the emergency department chief complaint of fluid overload. Patient states since October he has been battling fluid overload. Was admitted but when he was discharged he still was retaining fluid. He states his primary care physician increased his Lasix dosing to 240 mg in the morning and 120 mg at night. This was confirmed by at bedside. Patient states over the past 2 months he has gained over 30 pounds and has had severe abdominal distention and swelling in his scrotum. He states he can barely bend over and tie his shoes due to the distention. He denies any chest pain or pressure, abdominal pain or recent fevers or illnesses. He saw his primary care doctor yesterday who completed a chest x-ray and stated that he had some fluid on his lung and he should go to the emergency department. Pain Scale: 7 - Related Data Home Medications Medication Instructions Recorded Confirmed Aspirin 325 mg PO DAILY 08/09/15 12/28/17 Insulin Glargine [Lantus] 20 unit SQ HS 08/09/15 12/28/17 Multivitamin [Multivitamins] 1 each PO DAILY 09/12/15 12/28/17 GlipiZIDE XL (24 HR) [Glucotrol XL] 10 mg PO BID 09/13/15 12/28/17 Metoprolol [Lopressor] 25 mg PO BID 09/13/15 12/28/17 Esomeprazole Magnesium [Nexium 20 mg PO DAILY 05/02/17 12/28/17 24Hr] Gabapentin [Neurontin] 300 mg PO TID 05/02/17 12/28/17 Losartan Potassium [Cozaar] 50 mg PO DAILY 05/02/17 12/28/17 Vit C/E/Zn/Coppr/Lutein/Zeaxan 1 cap PO BID 05/02/17 12/28/17 [Preservision Areds 2 Softgel] Furosemide [Lasix] 120 mg PO BID 10/07/17 12/28/17 Previous Rx's Medication Instructions Recorded Nitroglycerin 0.4 mg SL Q5MIN PRN #30 tab.subl 09/13/15 Simvastatin [Zocor] 20 mg PO HS #30 tablet 09/13/15 Allergies Allergy/AdvReac Type Severity Reaction Status Date / Time No Known Allergies Allergy Verified 10/07/17 09:25 All systems ED: reviewed and negative except as stated. Constitutional: Denies: fever, chills, weakness Eyes: Reports: as per HPI ENT ED: Reports: as per HPI Cardiovascular: Denies: chest pain, palpitations Respiratory: Reports: dyspnea. Denies: cough, wheezes, hemoptysis Gastrointestinal: Denies: abdominal pain, nausea, vomiting Genitourinary: Reports: as per HPI Musculoskeletal: Reports: as per HPI Integumentary: Reports: as per HPI Neurological: Denies: weakness, numbness Psychiatric: Reports: as per HPI Endocrine: Reports: as per HPI Hematological/Lymphatic: Reports: as per HPI Allergic/Immunologic: Reports: as per HPI Past Medical History - Past Medical History Attestation: Yes The following information was validated with the patient. Medical history: Reports: arthritis, cardiomyopathy, CHF, coronary artery disease, diabetes, GERD, hyperlipidemia, hypertension, myocardial infarction, osteoporosis, peripheral artery disease, other Surgical history: Reports: coronary bypass (CABG), LE Bypass, LE vascular intervention, pacemaker/AICD, other Psychiatric history: Reports: no psych history - Social History Smoking Status: Former smoker Smokeless Tobacco Status: No Alcohol use: Reports: occasionally Drug use: Reports: none Physical Exam - General Limitations: no limitations General appearance: alert, in no apparent distress - Head Head exam: atraumatic, normocephalic, normal inspection - Eye Eye exam: Present: normal appearance. Absent: scleral icterus, conjunctival injection - ENT ENT exam: normal exam, mucous membranes moist - Neck Neck exam: Present: normal inspection, full ROM. Absent: tenderness, meningismus - Chest Chest inspection: Present: normal inspection, symmetric chest wall rise. Absent: tenderness, rash - Respiratory Respiratory exam: Present: other (Rhonchi noted in the bilateral bases) - Cardiovascular Cardiovascular exam: Present: regular rate, normal rhythm, normal heart sounds - Abdominal Exam Abdominal exam: Present: Non-Tender, distention. Absent: guarding, rebound, rigidity - Extremities Exam Extremities exam: Present: full ROM, other (1+ pitting edema bilateral lower extremities) - Neurological Exam Neurological exam: Present: alert, oriented X3 - Psychiatric Psychiatric exam: Present: normal affect, normal mood - Skin Skin exam: Present: warm, intact Course Course Narrative: 72-year-old male presenting for fluid overload. On physical exam he is alert and oriented 3 and hemodynamically stable. Has 1+ pitting edema in the bilateral lower extremities and abdominal distention. Patient does have rhonchi in the bilateral lung bases. Concern for fluid overload from CHF exacerbation at this time. Patient denies any symptoms denies chest pain or recent illnesses including fever. We will perform a basic chest pain workup including BNP and chest x-ray. Disposition most likely admission but pending results. Patient agrees with this plan. - Reevaluation(s) Reevaluation #1: Patient's laboratory analysis shows elevated troponin 0.06. Also elevated creatinine at 1.56. BNP elevated at 817. Chest x-ray does show mild pleural effusion. Due to patient's continuing symptoms at home despite maximum medical therapy will plan to admit the patient for further evaluation and treatment of his congestive heart failure. We will provide him with 40 mg of Lasix at this time and admit him. I spoke with the hospitalist corporate operations compliance manager Dr. Perez who agrees to accept the patient at this time. Patient agrees with this plan. Vital Signs Temperature 97.6 F 12/28/17 16:35 Pulse Rate 70 12/28/17 16:35 Respiratory Rate 18 12/28/17 16:35 Blood Pressure 122/81 12/28/17 16:35 O2 Sat by Pulse Oximetry 97 12/28/17 16:35 Temperature 97.6 F 12/28/17 17:00 Pulse Rate 70 12/28/17 17:00 Respiratory Rate 18 12/28/17 17:00 Blood Pressure 122/81 12/28/17 17:00 O2 Sat by Pulse Oximetry 97 12/28/17 17:00 Oxygen Delivery Oxygen Delivery Room Air Medical Decision Making - Lab Data Result diagrams: 12/28/17 17:08 Lab Results 12/28/17 Range/Units 17:08 WBC 7.9 (4.3-11.1) K/mcL RBC 4.51 (4.19-5.50) M/mcL Hgb 11.3 L (12.9-16.9) g/dL Hct 35.6 L (37.5-50.1) % MCV 78.9 L (83.0-100.0) fL MCH 25.1 L (28.0-33.3) pg MCHC 31.7 (31.6-35.5) g/dL RDW 18.8 H (11.5-14.5) % Plt Count 255 (140-400) K/mcL MPV 9.8 (9.4-12.4) fL Immature Gran % 0.3 (0-4) % Seg Neutrophils % 65.5 % Lymphocytes % 12.4 % Monocytes % 11.4 % Eosinophils % 8.8 % Basophils % 1.6 % Neutrophils # 5.2 (1.6-8.9) K/mcL Lymphocytes # 1.0 (0.6-4.6) K/mcL Monocytes # 0.9 (0.0-1.3) K/mcL Eosinophils # 0.7 H (0.0-0.6) K/mcL Basophils # 0.1 (0.0-0.2) K/mcL - EKG Data EKG #1 EKG attestation: Yes I reviewed and interpreted this EKG. EKG results narrative: Ventricularly paced. 70 bpm. NJ interval 154, QRS to 10, QTC 583. No sign of acute ST segment elevation or ischemia.
--- NOTE | 2017-12-28 18:06 | Emergency Department Note ---
Disposition Clinical Impression: CHF exacerbation Qualifiers: Heart failure type: unspecified Qualified Code(s): I50.9 - Heart failure, unspecified Disposition: Admitted As Inpatient Referrals: Dino Manzanares MD [Primary Care Provider] - General Adult [facility] - General Chief complaint: ED Shortness of Breath/Dyspnea Stated complaint: CHF Exac Time Seen by Provider: 12/28/17 16:40 Source: patient Limitations: no limitations - History of Present Illness Pain Scale: 7 - Related Data Home Medications Medication Instructions Recorded Confirmed Aspirin 325 mg PO DAILY 08/09/15 12/28/17 Insulin Glargine [Lantus] 20 unit SQ HS 08/09/15 12/28/17 Multivitamin [Multivitamins] 1 each PO DAILY 09/12/15 12/28/17 GlipiZIDE XL (24 HR) [Glucotrol XL] 10 mg PO BID 09/13/15 12/28/17 Metoprolol [Lopressor] 25 mg PO BID 09/13/15 12/28/17 Esomeprazole Magnesium [Nexium 20 mg PO DAILY 05/02/17 12/28/17 24Hr] Gabapentin [Neurontin] 300 mg PO TID 05/02/17 12/28/17 Losartan Potassium [Cozaar] 50 mg PO DAILY 05/02/17 12/28/17 Vit C/E/Zn/Coppr/Lutein/Zeaxan 1 cap PO BID 05/02/17 12/28/17 [Preservision Areds 2 Softgel] Furosemide [Lasix] 120 mg PO BID 10/07/17 12/28/17 Previous Rx's Medication Instructions Recorded Nitroglycerin 0.4 mg SL Q5MIN PRN #30 tab.subl 09/13/15 Simvastatin [Zocor] 20 mg PO HS #30 tablet 09/13/15 Allergies Allergy/AdvReac Type Severity Reaction Status Date / Time No Known Allergies Allergy Verified 10/07/17 09:25 Past Medical History - Past Medical History Medical history: Reports: arthritis, cardiomyopathy, CHF, coronary artery disease, diabetes, GERD, hyperlipidemia, hypertension, myocardial infarction, osteoporosis, peripheral artery disease, other Surgical history: Reports: coronary bypass (CABG), LE Bypass, LE vascular intervention, pacemaker/AICD, other Psychiatric history: Reports: no psych history - Social History Smoking Status: Former smoker Smokeless Tobacco Status: No Alcohol use: Reports: occasionally Drug use: Reports: none Physical Exam - General Limitations: no limitations General appearance: alert, in no apparent distress Course Vital Signs Temperature 97.6 F 12/28/17 16:35 Pulse Rate 70 12/28/17 16:35 Respiratory Rate 18 12/28/17 16:35 Blood Pressure 122/81 12/28/17 16:35 O2 Sat by Pulse Oximetry 97 12/28/17 16:35 Temperature 97.6 F 12/28/17 17:00 Pulse Rate 70 12/28/17 17:00 Respiratory Rate 18 12/28/17 17:00 Blood Pressure 122/81 12/28/17 17:00 O2 Sat by Pulse Oximetry 97 12/28/17 17:00 Oxygen Delivery Oxygen Delivery Room Air Medical Decision Making - Lab Data Result diagrams: 12/28/17 17:08 12/28/17 17:08 Lab Results 12/28/17 12/28/17 12/28/17 Range/Units 17:08 17:08 17:08 WBC 7.9 (4.3-11.1) K/mcL RBC 4.51 (4.19-5.50) M/mcL Hgb 11.3 L (12.9-16.9) g/dL Hct 35.6 L (37.5-50.1) % MCV 78.9 L (83.0-100.0) fL MCH 25.1 L (28.0-33.3) pg MCHC 31.7 (31.6-35.5) g/dL RDW 18.8 H (11.5-14.5) % Plt Count 255 (140-400) K/mcL MPV 9.8 (9.4-12.4) fL Immature Gran % 0.3 (0-4) % Seg Neutrophils % 65.5 % Lymphocytes % 12.4 % Monocytes % 11.4 % Eosinophils % 8.8 % Basophils % 1.6 % Neutrophils # 5.2 (1.6-8.9) K/mcL Lymphocytes # 1.0 (0.6-4.6) K/mcL Monocytes # 0.9 (0.0-1.3) K/mcL Eosinophils # 0.7 H (0.0-0.6) K/mcL Basophils # 0.1 (0.0-0.2) K/mcL Sodium 138 (136-145) mEq/L Potassium 4.0 (3.5-5.1) mEq/L Chloride 99 (98-107) mEq/L Carbon Dioxide 30 H (23-29) mEq/L BUN 46 H (8-23) mg/dL Creatinine 1.59 H (0.70-1.30) mg/dL Est GFR ( Amer) 52 L (> 60) Est GFR (Non-Af Amer) 43 L (> 60) BUN/Creatinine Ratio 29 H (6-26) Glucose 140 H (70-105) mg/dL Calculated Osmolality 300 (280-300) Calcium 9.3 (8.6-10.3) mg/dL Total Bilirubin 0.8 (0.3-1.0) mg/dL Direct Bilirubin 0.3 H (0.0-0.2) mg/dL Indirect Bilirubin 0.5 (0.0-1.2) mg/dL AST 19 (13-39) Units/L ALT 13 (7-52) Units/L Alkaline Phosphatase 116 H (34-104) Units/L Troponin I 0.06 H* (< 0.04) ng/mL B-Natriuretic Peptide 817 H (Less than 100) pg/mL Serum Total Protein 7.6 (6.4-8.9) g/dL Albumin 3.9 (3.5-5.7) g/dL Globulin 3.7 H (2.4-3.5) g/dL Albumin/Globulin Ratio 1.1 (1.1-2.2) Attestation Statement - Attestation Attestation: I examined this patient and my medical decision-making was reviewed with the Resident Physician. I agree with the documented findings, disposition and treatment plan as described except to the extent set forth below. 72 year old male presents to the ED with complaints of CHF excebration and is becoming more dyspniec but not hypoxic. BNP is elevated as is the troponin. WE will admit ot medcine with IV lasix therapoy started
[2017-12-28] MEDS ORDERED: Naloxone 0.4 MG/ML INJ IVP PRN (22:49)
[2017-12-29] MEDS ORDERED: D5% in Water 1,000 ML IVC PRN (01:17)
[2017-12-29] MEDS ORDERED: Dextrose Gel 15 GM/37.5 ML TUBE PO PRN ×2 (01:17)
[2017-12-29] MEDS ORDERED: *HR* Dextrose 50 % in Water (Syg) 50 ML SYRINGE IVP PRN (01:17)
--- NOTE | 2017-12-29 01:31 | Internal Med History&Physical ---
Date of Encounter: 12/29/17 Time of Encounter: 01:31 Internal Medicine - H&P: HPI Chief complaint: Fluid retention History of present illness: Mr. De La Cruz is a 72 year old male with a past medical history of coronary artery disease status post CABG, ischemic cardiomyopathy status post AICD, systolic heart failure and diabetes who presented to the ED with complaints of worsening lower extremity edema. Patient states that despite medication and dietary compliance he continues to retain fluid. Based on most recent pharmacy confirm dosing patient is taking 120 mg of Lasix twice a day. Patient states despite taking his medication he cannot seem to keep the fluid off. Patient reports that his baseline weight should be approximately 189 pounds but reports that he has gained approximately 30 pounds over the past few months. Patient denies any chest pain, shortness of breath, PND, orthopnea. Past Med Surg Social Fam HX - Past Medical History Medical history: arthritis, cardiomyopathy, CHF, coronary artery disease, diabetes, GERD, hyperlipidemia, hypertension, myocardial infarction, osteoporos is, peripheral artery disease, other Additional medical history: broken back Psychiatric history: no psych history - Past Surgical History Surgical History: coronary bypass (CABG), LE Bypass, LE vascular intervention, pacemaker/AICD, other Additional surgical history: back surgery - Social History Smoking Status: Former smoker Smokeless Tobacco Status: No Alcohol use: occasionally Drug use: none - Family History Mother Adopted: No Living Status: Internal Medicine - H&P: Meds Aspirin 325 mg PO DAILY 08/09/15 [History] Insulin Glargine [Lantus] 20 unit SQ HS 08/09/15 [History] Multivitamin [Multivitamins] 1 each PO DAILY 09/12/15 [History] GlipiZIDE XL (24 HR) [Glucotrol XL] 10 mg PO BID 09/13/15 [History] Metoprolol [Lopressor] 25 mg PO BID 09/13/15 [History] Nitroglycerin 0.4 mg SL Q5MIN PRN #30 tab.subl 09/13/15 [Rx] Simvastatin [Zocor] 20 mg PO HS #30 tablet 09/13/15 [Rx] Esomeprazole Magnesium [Nexium 24Hr] 20 mg PO DAILY 05/02/17 [History] Gabapentin [Neurontin] 300 mg PO TID 05/02/17 [History] Losartan Potassium [Cozaar] 50 mg PO DAILY 05/02/17 [History] Vit C/E/Zn/Coppr/Lutein/Zeaxan [Preservision Areds 2 Softgel] 1 cap PO BID 05/02/17 [History] Furosemide [Lasix] 120 mg PO BID 10/07/17 [History] Allergy/AdvReac Type Severity Reaction Status Date / Time No Known Allergies Allergy Verified 10/07/17 09:25 All Systems PM: A 10-system review of systems was performed and is negative for pertinent findings except as documented above in the HPI. - Constitutional Constitutional: no chills, no fever(s), no night sweats - EENT Eyes: no change in vision, no discharge, no pain, no photophobia Ears: no ear discharge, no ear pain, no tinnitus Nose, mouth and throat: no dysphagia, no nasal discharge, no neck pain, no sore throat - Cardiovascular Cardiovascular ROS IM: no chest pain, no diaphoresis, no dyspnea, no lightheadedness, no palpitations, no syncope - Respiratory Respiratory: no cough, no dyspnea, no wheezing, no excessive phlegm production - Gastrointestinal Gastrointestinal: no abdominal pain, no diarrhea, no hematemesis, no hematochezia, no melena, no nausea, no vomiting - Musculoskeletal Musculoskeletal ROS IM: no numbness, no tingling - Integumentary Integumentary IM: no rash, no unusual bruising - Neurological Neurological ROS: no confusion, no convulsions, no focal weakness, no numbness, no tingling, no tremor(s) - Hematologic/Lymphatic Hematologic/Lymphatic: no easy bruising - Constitutional Vitals: Temp Pulse Resp BP Pulse Ox 97.5 F L 87 15 125/69 95 12/28/17 21:40 12/28/17 21:40 12/28/17 21:40 12/28/17 21:40 12/28/17 21:40 Exam: General: Alert and oriented 3; lying in bed in no acute distress Skin:Normal color, no rash, no lesions. HEENT:EOM, pupils equal, round and reactive. Cardiovascular:Normal S1 & S2, no rubs, murmurs or gallops. No JVD. Pulse regular. Lungs:Normal breath sounds, no wheezes or crackles. Abdomen: Distended but Soft, non-tender, no rigidity. Extremities:No deformity, 2+ edema up to the mid thigh. Scrotal edema noted Neurological:Normal cognition and motor skills. Pulses:Carotid and radial pulses normal +2. Rest of the physical exam is non contributory Internal Med - H&P Results - Labs CBC & Chem 7: 12/29/17 05:01 12/29/17 05:01 Labs: Short CBC 12/28/17 Range/Units 17:08 WBC 7.9 (4.3-11.1) K/mcL Hgb 11.3 L (12.9-16.9) g/dL Hct 35.6 L (37.5-50.1) % Plt Count 255 (140-400) K/mcL Neutrophils # 5.2 (1.6-8.9) K/mcL BMP 12/28/17 17:08 Sodium 138 Potassium 4.0 Chloride 99 Carbon Dioxide 30 H BUN 46 H Creatinine 1.59 H Glucose 140 H Calcium 9.3 Cardiac Enzymes 12/28/17 12/28/17 Range/Units 17:08 23:19 Troponin I 0.06 H* 0.07 H* (< 0.04) ng/mL Liver Function 12/28/17 Range/Units 17:08 Total Bilirubin 0.8 (0.3-1.0) mg/dL Direct Bilirubin 0.3 H (0.0-0.2) mg/dL AST 19 (13-39) Units/L ALT 13 (7-52) Units/L Alkaline Phosphatase 116 H (34-104) Units/L Albumin 3.9 (3.5-5.7) g/dL - Impressions ITS Impressions Chest X-Ray 12/28/17 16:53 IMPRESSION: 1. Hazy density in the right lung base. This is suggestive of pleural effusion and partial atelectasis. Underlying pneumonia is not excluded. D/ / Ousmane Dupont MD / Ousmane Dpuont MD Interpreting Provider: Ousmane Dupont MD - Assessment and plan (1) CHF exacerbation Current Visit: Yes Status: Acute Assessment and plan: Acute CHF exacerbation with worsening bilateral lower extremity and scrotal edema. Strict I's and O's. Daily weights. We will start patient on Lasix 60 mg twice a day IV push. Echocardiogram., Cardiology consult in the morning. Qualifiers: Qualified Code(s): I50.23 - Acute on chronic systolic (congestive) heart failure (2) Elevated troponin I measurement Current Visit: Yes Status: Acute Assessment and plan: Elevated troponins. However reviewing previous admissions, troponins appear to be chronically elevated. We will trend for now and monitor. (3) CAD (coronary artery disease) Current Visit: Yes Status: Chronic Assessment and plan: Stable no evidence of ischemia. We will continue patient's home medications. Qualifiers: Coronary Disease-Associated Artery/Lesion type: [place] artery [place] vs. transplanted heart: [place] heart Associated angina: without angina Qualified Code(s): I25.10 - Atherosclerotic heart disease of [place] coronary artery without angina pectoris (4) DM2 (diabetes mellitus, type 2) Current Visit: No Status: Chronic Assessment and plan: Blood glucose checks. Sliding scale insulin. Qualifiers: Diabetes mellitus long-term insulin use: with intermediate project manager use Diabetes mellitus complication status: without complication Qualified Code(s): E11.9 - Type 2 diabetes mellitus without complications; Z79.4 - shelter (current) use of insulin (5) DVT prophylaxis Current Visit: No Status: Acute Assessment and plan: Subcutaneous heparin - Time Spent With Patient Total time spent is greater than 50% in coordination of care (as documented) at patient's floor/unit and/or counseling patient:
[2017-12-29] MEDS: Furosemide 40 MG/4 ML VIAL IVP SCH ×3 (02:05→16:14)
[2017-12-29 06:02] LABS: Basophils # 0.1 K/mcL (0.0-0.2); Basophils % 1.5 %; Eosinophils # 0.6 K/mcL (0.0-0.6); Eosinophils % 8.7 %; Hematocrit 32.3 % (37.5-50.1); Hemoglobin 10.6 g/dL (12.9-16.9); Immature Granulocytes % 0.2 % (0-4); Lymphocytes % 14.5 %; Mean Corpuscular HGB Conc 32.8 g/dL (31.6-35.5); Mean Corpuscular Hemoglobin 25.5 pg (28.0-33.3); Mean Corpuscular Volume 77.8 fL (83.0-100.0); Mean Platelet Volume 9.9 fL (9.4-12.4); Monocytes # 0.8 K/mcL (0.0-1.3); Monocytes % 12.6 %; Neutrophils # 4.1 K/mcL (1.6-8.9); Platelet Count 251 K/mcL (140-400); Red Blood Count 4.15 M/mcL (4.19-5.50); Red Cell Distribution Width 18.7 % (11.5-14.5); Segmented Neutrophils % 62.5 %
[2017-12-29] MEDS: *HR* Heparin 5,000 UNIT/ML VIAL SQ SCH ×3 (06:32→23:02)
[2017-12-29 06:37] LABS: Albumin 3.6 g/dL (3.5-5.7); Albumin/Globulin Ratio 1.1 (1.1-2.2); Bilirubin,Total 0.8 mg/dL (0.3-1.0); Calcium 8.9 mg/dL (8.6-10.3); Globulin 3.4 g/dL (2.4-3.5)
[2017-12-29] MEDS ORDERED: Furosemide 40 MG TABLET PO SCH (08:00)
[2017-12-29] MEDS ORDERED: Nitroglycerin 0.4 MG TAB.SUBL SL PRN (08:04)
[2017-12-29] MEDS: Gabapentin 300 MG CAPSULE PO SCH ×3 (09:49→23:01)
[2017-12-29] MEDS: Multivit/Ca/Min/Fe/FA 1 TAB TABLET PO SCH (09:50)
[2017-12-29] MEDS: Aspirin 325 MG TABLET PO SCH (09:50)
[2017-12-29] MEDS: Insulin LISPRO 300 UNITS/3 ML VIAL SQ SCH ×4 (10:00→22:51)
--- NOTE | 2017-12-29 11:13 | Event Note ---
Date of Encounter: 12/29/17 Time of Encounter: 11:00 Seen and assessed. Agree with plan per night team Being managed for 1. Acute worsening of Chronic systlic CHF. Continue IV lasix. Will switch regimen to lasix 40mg IV TID. Added metolazone to regimen. Follow up 2D echo. Monitor ins and outs 2. CAD. Continue aspirin, beta blockers and statin
--- NOTE | 2017-12-29 13:48 | Cardiology Consult Note ---
<Jj Espinoza Iris - Last Filed: 12/29/17 13:49> Date of Encounter: 12/29/17 Time of Encounter: 13:47 Assessment and Plan (1) Acute on chronic systolic (congestive) heart failure Current Visit: Yes Status: Acute Known systolic CHF EF 30%. Reports worsening dyspnea, LE edema and 30 lb weight gain since July. Home diuretic included Lasix 120mg BID. BNP 817, CXR evidence of right sided pleural effusion. Agree with IV diuresis--On Lasix IV 60mg BID and primary team started Metolazone 5mg daily. CKD, will monitor renal function closely. Pt reports compliance with 2L fluid restriction, but does admit to excessive Na intake. CHF teaching discussed. Recommend strict I/Os, Na and fluid restriction, daily weights. (2) Elevated troponin I measurement Current Visit: Yes Status: Acute Troponins 0.06, 0.07, 0.05 in setting of acute on chronic CHF exacerbation. Demand ischemia, nondiagnostic for ACS. Pt denies CP. TTE EF remains 30%. (3) CAD (coronary artery disease) Current Visit: Yes Status: Chronic Hx of CABG. Continue ASA, Statin, BB. Qualifiers: Coronary Disease-Associated Artery/Lesion type: [place] artery [place] vs. transplanted heart: [place] heart Associated angina: without angina Qualified Code(s): I25.10 - Atherosclerotic heart disease of [place] coronary artery without angina pectoris (4) Ischemic cardiomyopathy Current Visit: No Status: Acute EF 30%, ICD in place. Continue BB and plan to resume ARB after diuresed and if renal function will tolerate. Discussion w patient/family: The assessment and plan as outlined above was discussed with the patient and/or family members who expressed understanding and agreement. All questions were answered. Thank you for involving us in the care of your patient. Please call with any questions. I will discuss all the above with Dr. Sheth and make changes as necessary. History of Present Illness Consult date: 12/29/17 Consult reason: CHF Chief complaint: dyspnea, weight gain, LE edema History of present illness: Mr. De La Cruz is a 72 year old male with PMH of CAD, [place] and ischemic cardiomyopathy, EF 30% status post CABG and AICD, DM. He presented to the ED with complaints of worsening lower extremity edema, dyspnea, weight gain. Based on most recent pharmacy confirm dosing patient is taking 120 mg of Lasix twice a day. He reports that his baseline weight should be approximately 189 pounds but reports that he has gained approximately 30 pounds over the past few months. He states he has been getting worse since July. He reports drinking less than 2L of water per day, but does admit to excess Na intake. BNP 817. Known EF of 30%. TTE repeated this stay, EF remains 30%. Prior CV testing: Echo 05/02/2017: LVEF 30%. Mildly dilated left ventricle. There is no LV thrombus. Definity echo contrast was used. Normal right ventricular size with low normal function. Mildly sclerotic aortic valve leaflets. Mild-moderate mitral regurgitation. Mild-moderate tricuspid regurgitation. Moderate pulmonary hypertension. Past Med Surg Social Fam HX - Past Medical History Medical history: arthritis, cardiomyopathy, CHF, coronary artery disease, diabetes, GERD, hyperlipidemia, hypertension, myocardial infarction, osteoporosis, peripheral artery disease, other Additional medical history: broken back Psychiatric history: no psych history - Past Surgical History Surgical History: coronary bypass (CABG), LE Bypass, LE vascular intervention, pacemaker/AICD, other Additional surgical history: back surgery - Social History Smoking Status: Former smoker Smokeless Tobacco Status: No Alcohol use: occasionally Drug use: none - Family History Mother Adopted: No Living Status: Medications and Allergies RX: Aspirin 325 mg PO DAILY 08/09/15 [History] RX: Insulin Glargine [Lantus] 20 unit SQ HS 08/09/15 [History] RX: Multivitamin [Multivitamins] 1 each PO DAILY 09/12/15 [History] RX: GlipiZIDE XL (24 HR) [Glucotrol XL] 10 mg PO BID 09/13/15 [History] RX: Metoprolol [Lopressor] 25 mg PO BID 09/13/15 [History] RX: Nitroglycerin 0.4 mg SL Q5MIN PRN #30 tab.subl 09/13/15 [Rx] RX: Simvastatin [Zocor] 20 mg PO HS #30 tablet 09/13/15 [Rx] Esomeprazole Magnesium [Nexium 24Hr] 20 mg PO DAILY 05/02/17 [History] Gabapentin [Neurontin] 300 mg PO TID 05/02/17 [History] Losartan Potassium [Cozaar] 50 mg PO DAILY 05/02/17 [History] Vit C/E/Zn/Coppr/Lutein/Zeaxan [Preservision Areds 2 Softgel] 1 cap PO BID 05/02/17 [History] Furosemide [Lasix] 120 mg PO BID 10/07/17 [History] Allergy/AdvReac Type Severity Reaction Status Date / Time No Known Allergies Allergy Verified 10/07/17 09:25 All Systems Review: The remainder of the systems were reviewed and are negative - Constitutional Constitutional: weight gain - Cardiovascular Cardiovascular: as per HPI, dyspnea at rest, dyspnea on exertion, leg edema - Respiratory Respiratory: dyspnea Physical Examination Vital Signs Temp Pulse Resp BP Pulse Ox 12/29/17 06:35 97.7 F 76 16 123/76 96 12/29/17 04:00 97.5 F L 73 18 139/87 96 12/29/17 00:00 97.8 F 89 18 126/91 93 12/28/17 21:40 97.5 F L 87 15 125/69 95 12/28/17 20:24 86 14 144/83 94 12/28/17 19:31 86 21 124/78 94 12/28/17 18:34 72 16 121/82 96 12/28/17 18:18 71 16 121/82 95 12/28/17 17:00 97.6 F 70 18 122/81 97 12/28/17 16:35 97.6 F 70 18 122/81 97 Intake and Output 12/28/17 12/29/17 12/29/17 23:59 07:59 15:59 Intake Total 0 / 0 0 / 0 240 / 240 Output Total 800 / 800 Balance 0 / 0 -800 / -800 240 / 240 Intake: Oral 0 / 0 0 / 0 240 / 240 Output: Urine 800 / 800 Other: Meal Breakfast Percent of Meal Consumed 75% # Voids 0 Weight 96.6 kg 96.6 kg Blood Glucose* 165 196 219 Patient Weight 12/29/17 23:59 Weight 96.6 kg General: Conversant, No Apparent Distress HEENT: Atraumatic, Normocephaly, Mucus Membranes Moist Neck: Normal carotid pulses Cardiac: Reg Rate and Rhythm, Normal S1 and S2, No Murmur Lungs: Other (diminished) Neuro: Alert and responsive, No focal deficits noted Abdomen: Soft, Non-Tender Skin: No rashes noted on visualized skin Musculoskeletal: No Chest Wall Tenderness Extremities: Other (mild LE edema) Results 12/29/17 05:01 12/29/17 05:01 Lab Results 12/28/17 12/28/17 12/28/17 17:08 17:08 17:08 WBC 7.9 Hgb 11.3 L Hct 35.6 L Plt Count 255 Sodium 138 Potassium 4.0 Chloride 99 Carbon Dioxide 30 H BUN 46 H Creatinine 1.59 H Glucose 140 H Calcium 9.3 Total Bilirubin 0.8 AST 19 ALT 13 Alkaline Phosphatase 116 H Troponin I 0.06 H* B-Natriuretic Peptide 817 H 12/28/17 12/29/17 12/29/17 23:19 05:01 05:01 WBC 6.5 Hgb 10.6 L Hct 32.3 L Plt Count 251 Sodium 137 Potassium 4.0 Chloride 101 Carbon Dioxide 25 BUN 45 H Creatinine 1.42 H Glucose 217 H Calcium 8.9 Total Bilirubin 0.8 AST 19 ALT 10 Alkaline Phosphatase 110 H Troponin I 0.07 H* B-Natriuretic Peptide 12/29/17 05:01 WBC Hgb Hct Plt Count Sodium Potassium Chloride Carbon Dioxide BUN Creatinine Glucose Calcium Total Bilirubin AST ALT Alkaline Phosphatase Troponin I 0.05 H* B-Natriuretic Peptide Short CBC 12/29/17 12/28/17 Range/Units 05:01 17:08 WBC 6.5 7.9 (4.3-11.1) K/mcL Hgb 10.6 L 11.3 L (12.9-16.9) g/dL Hct 32.3 L 35.6 L (37.5-50.1) % Plt Count 251 255 (140-400) K/mcL Neutrophils # 4.1 5.2 (1.6-8.9) K/mcL BMP 12/29/17 12/28/17 Range/Units 05:01 17:08 Sodium 137 138 (136-145) mEq/L Potassium 4.0 4.0 (3.5-5.1) mEq/L Chloride 101 99 (98-107) mEq/L Carbon Dioxide 25 30 H (23-29) mEq/L BUN 45 H 46 H (8-23) mg/dL Creatinine 1.42 H 1.59 H (0.70-1.30) mg/dL Glucose 217 H 140 H (70-105) mg/dL Calcium 8.9 9.3 (8.6-10.3) mg/dL Cardiac Enzymes 12/29/17 12/28/17 12/28/17 Range/Units 05:01 23:19 17:08 Troponin I 0.05 H* 0.07 H* 0.06 H* (< 0.04) ng/mL Liver Function 12/29/17 12/28/17 Range/Units 05:01 17:08 Total Bilirubin 0.8 0.8 (0.3-1.0) mg/dL Direct Bilirubin 0.3 H (0.0-0.2) mg/dL AST 19 19 (13-39) Units/L ALT 10 13 (7-52) Units/L Alkaline Phosphatase 110 H 116 H (34-104) Units/L Albumin 3.6 3.9 (3.5-5.7) g/dL Impressions Chest X-Ray 12/28/17 16:53 IMPRESSION: 1. Hazy density in the right lung base. This is suggestive of pleural effusion and partial atelectasis. Underlying pneumonia is not excluded. D/ / Ousmane Dupont MD / Ousmane Dupont MD Interpreting Provider: Ousmane Dupont MD Echocardiogram 12/29/17 01:30 Impressions: LVEF 30%. Severe global left ventricular systolic dysfunction. Mildly dilated left ventricle. Normal right ventricular structure and function. Mildly dilated left atrium. Mild mitral regurgitation. Mild tricuspid regurgitation. Active Medications Aspirin (Aspirin) 325 mg PO DAILY [facility] Stop: 06/30/18 09:01 Last Admin: 12/29/17 09:50 Dose: 325 mg Dextrose/Water (Dextrose 50% (Syg)) 25 ml IVP AD PRN PRN Reason: Hypoglycemia Stop: 06/30/18 01:18 Furosemide (Lasix) 40 mg IVP TIDDIURETIC [facility] Stop: 06/30/18 17:01 Gabapentin (Neurontin) 300 mg PO TID [facility] Stop: 06/30/18 09:01 Last Admin: 12/29/17 09:49 Dose: 300 mg Glucagon (Glucagen) 1 mg IM ONCE PRN PRN Reason: Hypoglycemia Stop: 06/30/18 01:18 Glucose (Gluctose) 15 gm PO ONCE PRN PRN Reason: Hypoglycemia Stop: 06/30/18 01:18 Glucose (Gluctose) 30 gm PO ONCE PRN PRN Reason: Hypoglycemia Stop: 06/30/18 01:18 Heparin Sodium (Porcine) (Heparin) 5,000 unit SQ Q8HCO [facility] Stop: 06/30/18 06:01 Last Admin: 12/29/17 06:32 Dose: 5,000 unit Dextrose (Dextrose 5%) 1,000 mls @ 100 mls/hr IVC .Q10H PRN PRN Reason: HYPOGLYCEMIA Stop: 06/30/18 01:18 Insulin Detemir (Levemir) 10 unit SQ HS [facility] Stop: 06/30/18 21:01 Insulin Human Lispro (Humalog) 0 units SQ TIDAC [facility]; Protocol Stop: 06/30/18 07:31 Last Admin: 12/29/17 11:38 Dose: 8 units Insulin Human Lispro (Humalog) 0 units SQ HS [facility]; Protocol Stop: 06/30/18 21:01 Metolazone (Zaroxolyn) 5 mg PO 0730 [facility] Stop: 06/30/18 14:31 Metoprolol Tartrate (Lopressor) 25 mg PO BID [facility] Stop: 06/30/18 09:01 Last Admin: 12/29/17 09:49 Dose: 25 mg Multivitamins/Calcium (Thera M Plus) 1 tab PO DAILY [facility] Stop: 06/30/18 09:01 Last Admin: 12/29/17 09:50 Dose: 1 tab Naloxone HCl (Narcan) 0.4 mg IVP Q2MIN PRN PRN Reason: SEE COMMENTS Stop: 06/29/18 22:50 Nitroglycerin (Nitroglycerin) 0.4 mg SL Q5MIN PRN PRN Reason: Chest Pain Stop: 06/30/18 08:05 Omeprazole (Prilosec) 20 mg PO 0630 [facility] Stop: 06/30/18 08:01 Last Admin: 12/29/17 09:53 Dose: 20 mg Simvastatin (Zocor) 20 mg PO [facility]; Protocol Stop: 06/30/18 21:01 - Imaging and Cardiology Echo: report reviewed - EKG Interpretation EKG results cardiology: personally reviewed (V paced) Consult Discharge Plan - Plan Referrals: Dino Manzanares MD [Primary Care Provider] - 01/07/18 10:30 am <Hollie Sheth - Last Filed: 12/30/17 10:38> - Attending Attestation I have personally performed a face to face evaluation on this patient. I have reviewed and agree with the care plan. History and Exam by me shows: 72 YOM with ischemic CM EF 30% s/p ICD with last [facility] 2010 patent SVG to MANLEY and ALEXY to PDA. Dietary indescretions may be his culprit. Continue gentle diuresis and optimization of meds. Will consider adding Imdur as tolerated Assessment and Plan Discussion w patient/family: The assessment and plan as outlined above was discussed with the patient and/or family members who expressed understanding and agreement. All questions were answered. Thank you for involving us in the care of your patient. Please call with any questions. History of Present Illness History of present illness: Mr. De La Cruz is a 72 year old male All Systems Review: The remainder of the systems were reviewed and are negative Physical Examination Vital Signs, Last 4 Hours Pulse Resp BP Pulse Ox 12/30/17 07:10 71 19 121/72 97 Results 12/30/17 09:05 12/30/17 09:05 Lab Results 12/30/17 12/30/17 12/30/17 09:05 09:05 09:05 WBC 6.2 Hgb 10.9 L Hct 34.2 L Plt Count 244 Sodium 136 Potassium 3.8 Chloride 98 Carbon Dioxide 28 BUN 47 H Creatinine 1.42 H Glucose 136 H Calcium 8.6 Magnesium 2.6
[2017-12-29] MEDS: metOLazone 5 MG TABLET PO SCH (16:14)
[2017-12-29] MEDS: Insulin DETEMIR 100 UNIT/ML X5UNITS SQ SCH (23:00)
[2017-12-30] MEDS: *HR* Heparin 5,000 UNIT/ML VIAL SQ SCH ×3 (06:09→21:55)
[2017-12-30] MEDS: Insulin LISPRO 300 UNITS/3 ML VIAL SQ SCH ×4 (09:16→21:57)
[2017-12-30 09:17] LABS: Basophils # 0.1 K/mcL (0.0-0.2); Basophils % 1.6 %; Eosinophils # 0.7 K/mcL (0.0-0.6); Eosinophils % 10.5 %; Hematocrit 34.2 % (37.5-50.1); Hemoglobin 10.9 g/dL (12.9-16.9); Immature Granulocytes % 0.3 % (0-4); Lymphocytes # 0.8 K/mcL (0.6-4.6); Lymphocytes % 13.6 %; Mean Corpuscular HGB Conc 31.9 g/dL (31.6-35.5); Mean Corpuscular Hemoglobin 25.1 pg (28.0-33.3); Mean Corpuscular Volume 78.6 fL (83.0-100.0); Mean Platelet Volume 9.5 fL (9.4-12.4); Monocytes # 0.7 K/mcL (0.0-1.3); Monocytes % 11.8 %; Neutrophils # 3.8 K/mcL (1.6-8.9); Platelet Count 244 K/mcL (140-400); Red Blood Count 4.35 M/mcL (4.19-5.50); Red Cell Distribution Width 18.8 % (11.5-14.5); Segmented Neutrophils % 62.2 %
[2017-12-30] MEDS: metOLazone 5 MG TABLET PO SCH (09:24)
[2017-12-30] MEDS: Aspirin 325 MG TABLET PO SCH (09:24)
[2017-12-30] MEDS: Gabapentin 300 MG CAPSULE PO SCH ×3 (09:24→21:56)
[2017-12-30] MEDS: Furosemide 40 MG/4 ML VIAL IVP SCH ×3 (09:24→19:49)
[2017-12-30] MEDS: Multivit/Ca/Min/Fe/FA 1 TAB TABLET PO SCH (09:24)
[2017-12-30 09:39] LABS: Calcium 8.6 mg/dL (8.6-10.3); Potassium 3.8 mEq/L (3.5-5.1)
--- NOTE | 2017-12-30 10:46 | Internal Med Progress Note ---
Hospitalist Progress Note - Encounter Date of Encounter: 12/30/17 Time of Encounter: 08:30 - Exam Vitals: Temp Pulse Resp BP Pulse Ox 98.1 F 71 19 121/72 97 12/29/17 20:17 12/30/17 07:10 12/30/17 07:10 12/30/17 07:10 12/30/17 07:10 Exam: General: Alert and oriented 3; lying in bed in no acute distress Skin:Normal color, no rash, no lesions. HEENT:EOM, pupils equal, round and reactive. Cardiovascular:Normal S1 & S2, no rubs, murmurs or gallops. No JVD. Pulse regular. Lungs:Normal breath sounds, no wheezes or crackles. Abdomen: Distended but Soft, non-tender, no rigidity. Extremities:No deformity, 2+ edema up to the mid thigh. Scrotal edema noted Neurological:Normal cognition and motor skills. Pulses:Carotid and radial pulses normal +2. Rest of the physical exam is non contributory - Assessment and Plan (1) Acute on chronic systolic (congestive) heart failure Current Visit: Yes Status: Acute Assessment and Plan: Pt has EF of 30% and takes high doses of po lasix at home but is apparently non compliant with a low salt diet Contnue lasix 40mg IV TID, metolazone added to regimen. Cardiology following and appreciate recs (2) Elevated troponin I measurement Current Visit: Yes Status: Acute Assessment and Plan: Elevated troponins. Likely demand. (3) CAD (coronary artery disease) Current Visit: Yes Status: Chronic Assessment and Plan: Stable no evidence of ischemia. We will continue patient's home medications. (4) DM2 (diabetes mellitus, type 2) Current Visit: No Status: Chronic Assessment and Plan: Blood glucose checks. Sliding scale insulin. (5) DVT prophylaxis Current Visit: No Status: Acute Assessment and Plan: Subcutaneous heparin - Time Spent with Patient Total time spent is greater than 50% in coordination of care (as documented) at patient's floor/unit and/or counseling patient: Internal Medicine: Result - Labs CBC & Chem 7: 12/30/17 09:05 12/30/17 09:05 - Impressions Impressions Echocardiogram 12/29/17 01:30 Impressions: LVEF 30%. Severe global left ventricular systolic dysfunction. Mildly dilated left ventricle. Normal right ventricular structure and function. Mildly dilated left atrium. Mild mitral regurgitation. Mild tricuspid regurgitation. Consult Discharge Plan - Plan Referrals: Dino Manzanares MD [Primary Care Provider] - 01/07/18 10:30 am (3) CAD (coronary artery disease) Qualifiers: Coronary Disease-Associated Artery/Lesion type: [place] artery [place] vs. transplanted heart: [place] heart Associated angina: without angina Qualified Code(s): I25.10 - Atherosclerotic heart disease of [place] coronary artery without angina pectoris (4) DM2 (diabetes mellitus, type 2) Qualifiers: Diabetes mellitus terminal block assembler insulin use: with snf use Diabetes mellitus complication status: without complication Qualified Code(s): E11.9 - Type 2 diabetes mellitus without complications; Z79.4 - [facility] (current) use of insulin
[2017-12-30] MEDS ORDERED: Levalbuterol Neb 1.25 MG/3 ML IH ONE (11:07)
--- NOTE | 2017-12-30 11:53 | Cardiology Progress Note ---
Date of Encounter: 12/30/17 Time of Encounter: 11:50 Assessment and Plan (1) Acute on chronic systolic (congestive) heart failure Current Visit: Yes Status: Acute Known systolic CHF EF 30%. Reports worsening dyspnea, LE edema and 30 lb weight gain since July. Home diuretic included Lasix 120mg BID. BNP 817, CXR evidence of right sided pleural effusion. Agree with IV diuresis--On Lasix IV 40mg TID and primary team started Metolazone 5mg daily. CKD, renal function stable. Pt reports compliance with 2L fluid restriction, but does admit to excessive Na intake. CHF teaching discussed. Recommend strict I/Os, Na and fluid restriction, daily weights. Recommend continued diuresis until near baseline, then transition to PO Lasix with the additional Metolazone that has been started. Cardiology signing off. Reconsult PRN. Will coordinate outpt follow-up in 2-3 weeks. (2) Elevated troponin I measurement Current Visit: Yes Status: Acute Troponins 0.06, 0.07, 0.05 in setting of acute on chronic CHF exacerbation. Demand ischemia, nondiagnostic for ACS. Pt denies CP. TTE EF remains 30%. (3) CAD (coronary artery disease) Current Visit: Yes Status: Chronic Hx of CABG. Continue ASA, Statin, BB. Qualifiers: Coronary Disease-Associated Artery/Lesion type: [place] artery [place] vs. transplanted heart: [place] heart Associated angina: without angina Qualified Code(s): I25.10 - Atherosclerotic heart disease of [place] coronary artery without angina pectoris (4) Ischemic cardiomyopathy Current Visit: No Status: Acute EF 30%, ICD in place. Continue BB and plan to resume ARB after diuresed and if renal function will tolerate. Discussion w patient/family: The assessment and plan as outlined above was discussed with the patient and/or family members who expressed understanding and agreement. All questions were answered. Thank you for involving us in the care of your patient. Please call with any questions. I will discuss all the above with Dr. Sheth and make changes as necessary. Subjective Principal diagnosis: CHF Interval history: Reports symptoms are improving. Denies chest pain. Cumulative I/O -820mL. Objective Vital Signs, Last 4 Hours Temp Pulse Resp BP Pulse Ox 12/30/17 11:15 97.6 F 72 14 125/66 93 Vital Signs Temp Pulse Resp BP Pulse Ox 12/30/17 11:15 97.6 F 72 14 125/66 93 12/30/17 07:10 71 19 121/72 97 12/29/17 20:17 98.1 F 74 18 121/73 96 12/29/17 16:39 96.3 F L 68 24 138/68 Intake and Output 12/29/17 12/30/17 12/30/17 23:59 07:59 15:59 Intake Total 240 / 240 120 / 120 Output Total 500 / 500 250 / 250 Balance -260 / -260 -130 / -130 Intake: Oral 240 / 240 120 / 120 Output: Urine 500 / 500 250 / 250 Other: Meal Dinner Breakfast Percent of Meal Consumed 100% 100% Blood Glucose* 112 119 General: Conversant, No Apparent Distress HEENT: Atraumatic, Normocephaly, Mucus Membranes Moist Neck: Normal carotid pulses Cardiac: Reg Rate and Rhythm, Normal S1 and S2, No Murmur Lungs: Other (diminished) Neuro: Alert and responsive, No focal deficits noted Abdomen: Soft, Non-Tender Skin: No rashes noted on visualized skin Musculoskeletal: No Chest Wall Tenderness Extremities: No Clubbing, No Cyanosis, No Edema, Normal Pulses Results 12/30/17 09:05 12/30/17 09:05 Lab Results 12/30/17 12/30/17 12/30/17 09:05 09:05 09:05 WBC 6.2 Hgb 10.9 L Hct 34.2 L Plt Count 244 Sodium 136 Potassium 3.8 Chloride 98 Carbon Dioxide 28 BUN 47 H Creatinine 1.42 H Glucose 136 H Calcium 8.6 Magnesium 2.6 Short CBC 12/30/17 Range/Units 09:05 WBC 6.2 (4.3-11.1) K/mcL Hgb 10.9 L (12.9-16.9) g/dL Hct 34.2 L (37.5-50.1) % Plt Count 244 (140-400) K/mcL Neutrophils # 3.8 (1.6-8.9) K/mcL BMP 12/30/17 Range/Units 09:05 Sodium 136 (136-145) mEq/L Potassium 3.8 (3.5-5.1) mEq/L Chloride 98 (98-107) mEq/L Carbon Dioxide 28 (23-29) mEq/L BUN 47 H (8-23) mg/dL Creatinine 1.42 H (0.70-1.30) mg/dL Glucose 136 H (70-105) mg/dL Calcium 8.6 (8.6-10.3) mg/dL Impressions Echocardiogram 12/29/17 01:30 Impressions: LVEF 30%. Severe global left ventricular systolic dysfunction. Mildly dilated left ventricle. Normal right ventricular structure and function. Mildly dilated left atrium. Mild mitral regurgitation. Mild tricuspid regurgitation. Active Medications Aspirin (Aspirin) 325 mg PO DAILY [facility] Stop: 06/30/18 09:01 Last Admin: 12/30/17 09:24 Dose: 325 mg Dextrose/Water (Dextrose 50% (Syg)) 25 ml IVP AD PRN PRN Reason: Hypoglycemia Stop: 06/30/18 01:18 Last Admin: 12/29/17 16:44 Dose: 25 ml Furosemide (Lasix) 40 mg IVP TIDDIURETIC [facility] Stop: 06/30/18 17:01 Last Admin: 12/30/17 09:24 Dose: 40 mg Gabapentin (Neurontin) 300 mg PO TID [facility] Stop: 06/30/18 09:01 Last Admin: 12/30/17 09:24 Dose: 300 mg Glucagon (Glucagen) 1 mg IM ONCE PRN PRN Reason: Hypoglycemia Stop: 06/30/18 01:18 Glucose (Gluctose) 15 gm PO ONCE PRN PRN Reason: Hypoglycemia Stop: 06/30/18 01:18 Glucose (Gluctose) 30 gm PO ONCE PRN PRN Reason: Hypoglycemia Stop: 06/30/18 01:18 Heparin Sodium (Porcine) (Heparin) 5,000 unit SQ Q8HCO [facility] Stop: 06/30/18 06:01 Last Admin: 12/30/17 06:09 Dose: 5,000 unit Dextrose (Dextrose 5%) 1,000 mls @ 100 mls/hr IVC .Q10H PRN PRN Reason: HYPOGLYCEMIA Stop: 06/30/18 01:18 Insulin Detemir (Levemir) 10 unit SQ HS [facility] Stop: 06/30/18 21:01 Last Admin: 12/29/17 23:00 Dose: Not Given Insulin Human Lispro (Humalog) 0 units SQ TIDAC [facility]; Protocol Stop: 06/30/18 07:31 Last Admin: 12/30/17 09:16 Dose: Not Given Insulin Human Lispro (Humalog) 0 units SQ HS [facility]; Protocol Stop: 06/30/18 21:01 Last Admin: 12/29/17 22:51 Dose: Not Given Metolazone (Zaroxolyn) 5 mg PO 0730 [facility] Stop: 06/30/18 14:31 Last Admin: 12/30/17 09:24 Dose: 5 mg Metoprolol Tartrate (Lopressor) 25 mg PO BID [facility] Stop: 06/30/18 09:01 Last Admin: 12/30/17 09:24 Dose: 25 mg Multivitamins/Calcium (Thera M Plus) 1 tab PO DAILY [facility] Stop: 06/30/18 09:01 Last Admin: 12/30/17 09:24 Dose: 1 tab Naloxone HCl (Narcan) 0.4 mg IVP Q2MIN PRN PRN Reason: SEE COMMENTS Stop: 06/29/18 22:50 Nitroglycerin (Nitroglycerin) 0.4 mg SL Q5MIN PRN PRN Reason: Chest Pain Stop: 06/30/18 08:05 Omeprazole (Prilosec) 20 mg PO 0630 [facility] Stop: 06/30/18 08:01 Last Admin: 12/30/17 06:09 Dose: 20 mg Simvastatin (Zocor) 20 mg PO HS [facility]; Protocol Stop: 06/30/18 21:01 Last Admin: 12/29/17 23:01 Dose: Not Given - Imaging and Cardiology Echo: report reviewed - EKG Interpretation EKG results cardiology: other (12 hr tele AVG HR 72, v-paced) Consult Discharge Plan - Plan Referrals: Dino Manzanares MD [Primary Care Provider] - 01/07/18 10:30 am
[2017-12-30 14:13] LABS: INR 1.5; Prothrombin Time 17.2 Seconds (9.4-12.1)
--- NOTE | 2017-12-30 15:12 | Procedure Note ---
Date of procedure: 12/30/17 Pre-op diagnosis: pleural fluid Post-op diagnosis: same Procedure: Thoracentesis Date: 12/30/2017 Time: 1425 Indication: Large pleural effusion Resident: Luis Felipe Gandara DO Attending: Dr. Delfina Polk A time-out was completed verifying correct patient, procedure, site, positioning, and special equipment if applicable. The patients right side was prepped and draped in a sterile manner after the appropriate infiltration level was confirmed by ultrasound. 1% lidocaine was used anesthetize the surrounding skin. A finder needle was then used to locate fluid and clear yellow fluid was obtained. A 10-blade scalpel used to make the incision. The thoracentesis catheter was then threaded without difficulty. The patient had 1000ml of clear yellow fluid removed. Dr. Delfina Polk was present for the entire procedure. A post-procedure chest x-ray was ordered and the fluid will be sent for several studies. Estimated Blood Loss: 0ml The patient tolerated the procedure well and there were no complications. Anesthesia: local Surgeon: Luis Felipe Gandara Was there an visitor information assistant present: Yes Petroleum Engineering Professor: Delfina Polk Estimated blood loss (cc): 0 Specimen: pleural fluid Condition: stable Disposition: floor
[2017-12-30 17:31] LABS: ABG Base Excess 7 mEq/L (-2 to 3); ABG HCO3 31 mEq/L (21-27); ABG Oxygen Saturation 94 % (95-98); ABG PCO2 43 mmHg (35-45); ABG PH 7.47 pH Units (7.32-7.45); ABG PO2 67 mmHg (85-104); ABG TCO2 33 mEq/L (20-26)
[2017-12-30] MEDS ORDERED: Aspirin 325 MG TABLET PO ONE (19:03)
--- NOTE | 2017-12-30 21:06 | Urology - Consult Note ---
Date of Encounter: 12/30/17 Time of Encounter: 21:05 - Assessment and Plan (1) Chris catheter problem Current Visit: Yes Status: Acute Assessment and plan: Staff unable to place Chris due to penile edema. 16-[place] Chris catheter easily placed with Technique at bedside. Plan: Recommend discontinuation of Chris with trial of v oid wants strict monitoring of intake and output no longer required. Qualifiers: Encounter type: initial encounter Qualified Code(s): T83.9XXA - Unspecified complication of genitourinary prosthetic device, implant and graft, initial encounter (2) Urinary retention with incomplete bladder emptying Current Visit: Yes Status: Acute Assessment and plan: Patient reports no baseline voiding difficulties. He is now admitted for exacerbation of CHF. He is voiding small amounts PVRs in the 600-800 range. I suspect that this is multifactorial including current decrease general medical condition. Chris catheter was placed at bedside at the request of primary service for strict I&O monitoring. Plan: Recommend Chris removal with trial of void/PVR monitoring once strict I and O's no longer required. Urology CN:HPI Consult date: 12/30/17 Reason for consult Urology: Difficult Chris Requesting physician: Kelsie Arellano History of present illness: Very pleasant 72-year-old gentleman with a history of CHF. He is now admitted for an exacerbation. Chris catheter is indicated for INR management. Due to scrotal and penile edema from his CHF, he had multiple failed attempts at Chris catheter placement earlier today. I have been cold for difficult Chris placement. The patient has been voiding small amounts with PVRs ranging anywhere from 600-800 mL. Patient denies prior urologic interventions. Patient had some filling of bladder distress distention with discomfort earlier today. This discomfort was relieved with spontaneous voids. Past Med Surg Social Fam HX - Past Medical History Medical history: arthritis, cardiomyopathy, CHF, coronary artery disease, diabetes, GERD, hyperlipidemia, hypertension, myocardial infarction, osteoporosis, peripheral artery disease, other Additional medical history: broken back Psychiatric history: no psych history - Past Surgical History Surgical History: coronary bypass (CABG), LE Bypass, LE vascular intervention, pacemaker/AICD, other Additional surgical history: back surgery - Social History Smoking Status: Former smoker Smokeless Tobacco Status: No Alcohol use: occasionally Drug use: none - Family History Mother Adopted: No Living Status: Medications and Allergies Aspirin 325 mg PO DAILY 08/09/15 [History] Insulin Glargine [Lantus] 20 unit SQ HS 08/09/15 [History] Multivitamin [Multivitamins] 1 each PO DAILY 09/12/15 [History] GlipiZIDE XL (24 HR) [Glucotrol XL] 10 mg PO BID 09/13/15 [History] Metoprolol [Lopressor] 25 mg PO BID 09/13/15 [History] Nitroglycerin 0.4 mg SL Q5MIN PRN #30 tab.subl 09/13/15 [Rx] Simvastatin [Zocor] 20 mg PO HS #30 tablet 09/13/15 [Rx] Esomeprazole Magnesium [Nexium 24Hr] 20 mg PO DAILY 05/02/17 [History] Gabapentin [Neurontin] 300 mg PO TID 05/02/17 [History] Losartan Potassium [Cozaar] 50 mg PO DAILY 05/02/17 [History] Vit C/E/Zn/Coppr/Lutein/Zeaxan [Preservision Areds 2 Softgel] 1 cap PO BID 04/09 07/23 [History] Furosemide [Lasix] 120 mg PO BID 10/07/17 [History] Allergy/AdvReac Type Severity Reaction Status Date / Time No Known Allergies Allergy Verified 10/07/17 09:25 Review of Systems - Constitutional no chills, no fever(s) - EENT Nose, mouth and throat: no dizziness, no sore throat - Cardiovascular edema, no diaphoresis - Respiratory no cough, no dyspnea - Gastrointestinal no abdominal pain, no fecal incontinence - Genitourinary difficulty urinating, scrotal swelling, no urinary hesitancy - Musculoskeletal no back pain, no muscle weakness - Integumentary no erythema, no rash - Neurological confusion - Psychiatric no anxiety - Hematologic/Lymphatic no easy bleeding, no easy bruising - Allergic/Immunologic no throat swelling, no wheezing Exam Initial Vital Signs Temp Pulse Resp BP Pulse Ox 97.6 F 70 18 122/81 97 12/28/17 16:35 12/28/17 16:35 12/28/17 16:35 12/28/17 16:35 12/28/17 16:35 - General physical appearance Present: well developed, no distress - Eyes Present: normal ocular movement - ENT Present: normal nares, normal mucosa - Neck Present: trachea midline - Respiratory Present: normal respiratory effort - Abdomen Abdomen: Present: soft, tender - Genitourinary other (Significant edema of the penis and mild to moderate edema of the scrotal. Edema prevents retraction of foreskin or visualization of glans) Penis: Present: edema - Integumentary Present: no growths, no abnormal pigmentation - Neurologic Present: normal coordination - Musculoskeletal Present: other (Normal coordination of extremities with good strength bilaterally) Urology Results - Labs 12/30/17 09:05 12/30/17 09:05 Abnormal lab results Hgb 10.9 g/dL (12.9-16.9) L 12/30/17 09:05 Hct 34.2 % (37.5-50.1) L 12/30/17 09:05 MCV 78.6 fL (83.0-100.0) L 12/30/17 09:05 MCH 25.1 pg (28.0-33.3) L 12/30/17 09:05 RDW 18.8 % (11.5-14.5) H 12/30/17 09:05 Eosinophils # 0.7 K/mcL (0.0-0.6) H 12/30/17 09:05 PT 17.2 Seconds (9.4-12.1) H 12/30/17 13:40 ABG pH 7.47 pH Units (7.32-7.45) H 12/30/17 17:28 ABG pO2 67 mmHg (85-104) L 12/30/17 17:28 ABG HCO3 31 mEq/L (21-27) H 12/30/17 17:28 ABG Total CO2 33 mEq/L (20-26) H 12/30/17 17:28 ABG O2 Saturation 94 % (95-98) L 12/30/17 17:28 ABG Base Excess 7 mEq/L (-2 to 3) H 12/30/17 17: BUN 47 mg/dL (8-23) H 12/30/17 09:05 Creatinine 1.42 mg/dL (0.70-1.30) H 12/30/17 09:05 Est GFR (Non-Af Amer) 49 (> 60) L 12/30/17 09:05 BUN/Creatinine Ratio 33 (6-26) H 12/30/17 09:05 Glucose 136 mg/dL (70-105) H 12/30/17 09:05 POC Glucose 217 mg/dL (70-99) H 12/30/17 11:59 Direct Bilirubin 0.3 mg/dL (0.0-0.2) H 12/28/17 17:08 Alkaline Phosphatase 110 Units/L (34-104) H 12/29/17 05:01 Troponin I 0.05 ng/mL (< 0.04) H* 12/29/17 05:01 B-Natriuretic Peptide 817 pg/mL (Less than 100) H 12/28/17 17:08 Diabetes panel 12/30/17 Range/Units 09:05 Sodium 136 (136-145) mEq/L Potassium 3.8 (3.5-5.1) mEq/L Chloride 98 (98-107) mEq/L Carbon Dioxide 28 (23-29) mEq/L BUN 47 H (8-23) mg/dL Creatinine 1.42 H (0.70-1.30) mg/dL Glucose 136 H (70-105) mg/dL Calcium 8.6 (8.6-10.3) mg/dL Calcium panel 12/30/17 12/30/17 Range/Units 09:05 09:05 Calcium 8.6 (8.6-10.3) mg/dL Phosphorus 4.1 (2.7-4.5) mg/dL Pituitary panel 12/30/17 Range/Units 09:05 Sodium 136 (136-145) mEq/L Potassium 3.8 (3.5-5.1) mEq/L Chloride 98 (98-107) mEq/L Carbon Dioxide 28 (23-29) mEq/L BUN 47 H (8-23) mg/dL Creatinine 1.42 H (0.70-1.30) mg/dL Glucose 136 H (70-105) mg/dL Calcium 8.6 (8.6-10.3) mg/dL Adrenal panel 12/30/17 Range/Units 09:05 Sodium 136 (136-145) mEq/L Potassium 3.8 (3.5-5.1) mEq/L Chloride 98 (98-107) mEq/L Carbon Dioxide 28 (23-29) mEq/L BUN 47 H (8-23) mg/dL Creatinine 1.42 H (0.70-1.30) mg/dL Glucose 136 H (70-105) mg/dL Calcium 8.6 (8.6-10.3) mg/dL All other labs normal. Consult Discharge Plan - Plan Referrals: Dino Manzanares MD [Primary Care Provider] - 01/07/18 10:30 am
[2017-12-30] MEDS: Insulin DETEMIR 100 UNIT/ML X5UNITS SQ SCH (22:00)
[2017-12-31 05:19] LABS: Basophils # 0.1 K/mcL (0.0-0.2); Basophils % 1.1 %; Eosinophils # 0.5 K/mcL (0.0-0.6); Eosinophils % 6.1 %; Hematocrit 34.4 % (37.5-50.1); Hemoglobin 11.1 g/dL (12.9-16.9); Immature Granulocytes % 0.2 % (0-4); Lymphocytes # 0.9 K/mcL (0.6-4.6); Lymphocytes % 10.7 %; Mean Corpuscular HGB Conc 32.3 g/dL (31.6-35.5); Mean Corpuscular Hemoglobin 25.2 pg (28.0-33.3); Mean Platelet Volume 9.8 fL (9.4-12.4); Monocytes # 0.9 K/mcL (0.0-1.3); Monocytes % 11.5 %; Neutrophils # 5.7 K/mcL (1.6-8.9); Platelet Count 259 K/mcL (140-400); Red Blood Count 4.41 M/mcL (4.19-5.50); Red Cell Distribution Width 18.5 % (11.5-14.5); Segmented Neutrophils % 70.4 %
[2017-12-31 05:33] LABS: BUN/Creatinine Ratio 37 (6-26); Blood Urea Nitrogen 51 mg/dL (8-23); Calcium 9.5 mg/dL (8.6-10.3); Carbon Dioxide 28 mEq/L (23-29); Chloride 98 mEq/L (98-107); Glucose 169 mg/dL (70-105); Magnesium 2.7 mg/dL (1.6-2.6); Osmolality,Calculated 302 (280-300); Phosphorous 4.1 mg/dL (2.7-4.5); Potassium 3.8 mEq/L (3.5-5.1); Sodium 137 mEq/L (136-145); eGFR For Non-African Americans 50 (> 60)
[2017-12-31] MEDS: *HR* Heparin 5,000 UNIT/ML VIAL SQ SCH ×3 (06:23→20:18)
[2017-12-31] MEDS: metOLazone 5 MG TABLET PO SCH (06:23)
[2017-12-31] MEDS: Furosemide 40 MG/4 ML VIAL IVP SCH ×3 (08:58→17:26)
[2017-12-31] MEDS: Insulin LISPRO 300 UNITS/3 ML VIAL SQ SCH ×4 (08:58→20:19)
[2017-12-31] MEDS: Aspirin Enteric Coated 81 MG Tablet PO SCH (08:58)
[2017-12-31] MEDS: Multivit/Ca/Min/Fe/FA 1 TAB TABLET PO SCH (08:58)
[2017-12-31] MEDS: Gabapentin 300 MG CAPSULE PO SCH ×3 (08:58→20:18)
[2017-12-31] MEDS: Pantoprazole 40 MG VIAL IVP SCH (08:58)
--- NOTE | 2017-12-31 09:40 | Internal Med Progress Note ---
Hospitalist Progress Note - Encounter Date of Encounter: 12/31/17 Time of Encounter: 09:40 - Exam Vitals: Temp Pulse Resp BP Pulse Ox 97.5 F L 73 20 103/52 96 12/31/17 05:53 12/31/17 07:56 12/31/17 07:56 12/31/17 07:56 12/31/17 07:56 Exam: General: Alert and oriented 3; lying in bed in no acute distress Skin:Normal color, no rash, no lesions. HEENT:EOM, pupils equal, round and reactive. Cardiovascular:Normal S1 & S2, no rubs, murmurs or gallops. No JVD. Pulse regular. Lungs:Normal breath sounds, no wheezes or crackles. Abdomen: Distended but Soft, non-tender, no rigidity. Extremities:No deformity, 2+ edema up to the mid thigh. Scrotal edema noted Neurological:Normal cognition and motor skills. Pulses:Carotid and radial pulses normal +2. Rest of the physical exam is non contributory - Assessment and Plan (1) Acute on chronic systolic (congestive) heart failure Current Visit: Yes Status: Acute Assessment and Plan: Pt has EF of 30% and takes high doses of po lasix at home but is apparently non compliant with a low salt diet Contnue lasix 40mg IV TID, metolazone added to regimen. Had therapeutic thoracentesis with drainage of 1L of fluid. SOB improved. HAs lost 13 pounds since he was admitted. Cardiology following and appreciate recs (2) Elevated troponin I measurement Current Visit: Yes Status: Acute Assessment and Plan: Elevated troponins. Likely demand. (3) CAD (coronary artery disease) Current Visit: Yes Status: Chronic Assessment and Plan: Stable no evidence of ischemia. We will continue patient's home medications. (4) DM2 (diabetes mellitus, type 2) Current Visit: Yes Status: Chronic Assessment and Plan: Blood glucose checks. Sliding scale insulin. (5) CVA (cerebral vascular accident) Current Visit: Yes Status: Acute Assessment and Plan: pt had episode of confusion in last 24hrs and got a CT head showing subacute to chronic infarct in parietooccipital region cotninue aspirin. neuro consulted. Follow up carotid ultrasound (6) DVT prophylaxis Current Visit: No Status: Acute Assessment and Plan: Subcutaneous heparin - Time Spent with Patient Total time spent is greater than 50% in coordination of care (as documented) at patient's floor/unit and/or counseling patient: Internal Medicine: Result - Labs CBC & Chem 7: 12/31/17 04:39 12/31/17 04:39 Labs: Short CBC 12/31/17 Range/Units 04:39 WBC 8.1 (4.3-11.1) K/mcL Hgb 11.1 L (12.9-16.9) g/dL Hct 34.4 L (37.5-50.1) % Plt Count 259 (140-400) K/mcL Neutrophils # 5.7 (1.6-8.9) K/mcL BMP 12/30/17 12/31/17 09:05 04:39 Sodium 136 137 Potassium 3.8 3.8 Chloride 98 98 Carbon Dioxide 28 28 BUN 47 H 51 H Creatinine 1.42 H 1.39 H Glucose 136 H 169 H Calcium 8.6 9.5 - ABG Interpretation ABG results: ABG ABG pH 7.47 pH Units (7.32-7.45) H 12/30/17 17:28 ABG pCO2 43 mmHg (35-45) 12/30/17 17:28 ABG pO2 67 mmHg (85-104) L 12/30/17 17:28 ABG O2 Saturation 94 % (95-98) L 12/30/17 17:28 PT/INR, D-dimer PT 17.2 Seconds (9.4-12.1) H 12/30/17 13:40 - Impressions Impressions Thoracentesis 12/30/17 13:46 IMPRESSION: Successful ultrasound guided right thoracentesis. D/ / Delfina Polk MD / Delfina Polk MD Interpreting Provider: Delfina Polk MD Chest X-Ray 12/30/17 14:41 IMPRESSION: Improved aeration at the right lung base. No pleural effusion or pneumothorax. Mild pulmonary vascular congestion. Low lung volumes. Stable mild cardiomegaly. D/ / Justin Abdi MD / Justin Abdi MD Interpreting Provider: Justin Abdi MD X-Ray 12/30/17 17:16 IMPRESSION: No evidence of urinary tract stone disease. Large volume colonic stool without obstruction-query constipation. D/ / Grayson Scott / Grayson Scott Interpreting Provider: Grayson Scott Bladder Ultrasound 12/30/17 17:22 IMPRESSION: 1. Unremarkable appearing bladder without focal wall thickening. No postvoid bladder volume. D/ / Ousmane Dupont MD / Ousmane Dupont MD Interpreting Provider: Ousmane Dupont MD Head CT 12/30/17 18:00 IMPRESSION: Wedge-shaped area of hypoattenuation within the right parietooccipital region, compatible with late subacute to chronic infarct. This is new when compared to the previous exam from 08/09/2015. No evidence of acute infarct identified. No hemorrhages within the brain parenchyma. Consider further evaluation with MRI. D/ / Hemant Nixon MD / Hemant Nixon MD Interpreting Provider: Hemant Nixon MD Consult Discharge Plan - Plan Instructions: Myocardial Infarction (DC), Heart Failure (DC), Chest Pain (DC), Thoracentesis (DC), Urinary Tract Infection in Men (DC), Diabetes Mellitus Type 2 in Adults (DC), Chronic Hypertension (DC), Fall Prevention (DC) Referrals: Dino Manzanares MD [Primary Care Provider] - 01/07/18 10:30 am (3) CAD (coronary artery disease) Qualifiers: Coronary Disease-Associated Artery/Lesion type: [place] artery [place] vs. 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
--- NOTE | 2017-12-31 10:08 | Neurology - Consult Note ---
<Lamberto Saravia - Last Filed: 12/31/17 11:45> Date of Encounter: 12/31/17 Time of Encounter: 10:06 Assessment and Plan (1) CVA (cerebral vascular accident) Current Visit: Yes Status: Acute Patient had CT of the head for altered mental status and was found to have a wedge-shaped area of hypoattenuation within the right parieto-occipital region. Currently is alert and oriented 3 Patient's neuro exam is nonfocal and nonlateralizing. He is able to ambulate independently. Patient's vision is intact. Echocardiogram shows an EF of 30% with severe global left ventricular systolic dysfunction, mildly dilated left ventricle. Order carotid Dopplers bilaterally. At this point patient does not have any neurological deficits. Recommend Continue aspirin, Plavix, simvastatin. Qualifiers: CVA mechanism: unspecified Qualified Code(s): I63.9 - Cerebral infarction, unspecified (2) CAD (coronary artery disease) Current Visit: Yes Status: Chronic As per cardiology and primary. Qualifiers: Coronary Disease-Associated Artery/Lesion type: [place] artery [place] vs. transplanted heart: [place] heart Associated angina: without angina Qualified Code(s): I25.10 - Atherosclerotic heart disease of [place] coronary artery without angina pectoris (3) DM2 (diabetes mellitus, type 2) Current Visit: Yes Status: Chronic As per primary Qualifiers: Diabetes mellitus skilled nursing insulin use: with tank terminal gauger use Diabetes mellitus complication status: without complication Qualified Code(s): E11.9 - Type 2 diabetes mellitus without complications; Z79.4 - [facility] (current) use of insulin (4) DVT prophylaxis Current Visit: No Status: Acute (5) Acute on chronic systolic (congestive) heart failure Current Visit: Yes Status: Acute History of Present Illness Chief complaint: Fluid retention HPI: Mr. De La Cruz is a 72 year old male presented with chief complaint of lower extremity edema. Patient was admitted for CHF exacerbation. He underwent CT of the head for altered mental status and was found to have a wedge-shaped area of hypoattenuation within the right parieto-occipital region. Thus neurology was consulted. Patient denies history of stroke. He denies slurred speech, headache, difficulty swallowing, difficulty with ambulation, weakness, numbness, imbalance, lightheadedness, vertigo. Patient has a pacemaker and AICD and cannot get an MRI. He also has acute kidney injury and cannot receive contrast. He is able to eat his breakfast independently. Past Med Surg Social Fam HX - Past Medical History Medical history: arthritis, cardiomyopathy, CHF, coronary artery disease, diabetes, GERD, hyperlipidemia, hypertension, myocardial infarction, osteoporosis, peripheral artery disease, other Additional medical history: broken back Psychiatric history: no psych history - Past Surgical History Surgical History: coronary bypass (CABG), LE Bypass, LE vascular intervention, pacemaker/AICD, other Additional surgical history: back surgery - Social History Smoking Status: Former smoker Smokeless Tobacco Status: No Alcohol use: occasionally Drug use: none - Family History Mother Adopted: No Living Status: Medications and Allergies Aspirin 325 mg PO DAILY 08/09/15 [History] Insulin Glargine [Lantus] 20 unit SQ HS 08/09/15 [History] Multivitamin [Multivitamins] 1 each PO DAILY 09/12/15 [History] GlipiZIDE XL (24 HR) [Glucotrol XL] 10 mg PO BID 09/13/15 [History] Metoprolol [Lopressor] 25 mg PO BID 09/13/15 [History] Nitroglycerin 0.4 mg SL Q5MIN PRN #30 tab.subl 09/13/15 [Rx] Simvastatin [Zocor] 20 mg PO HS #30 tablet 09/13/15 [Rx] Esomeprazole Magnesium [Nexium 24Hr] 20 mg PO DAILY 05/02/17 [History] Gabapentin [Neurontin] 300 mg PO TID 05/02/17 [History] Losartan Potassium [Cozaar] 50 mg PO DAILY 05/02/17 [History] Vit C/E/Zn/Coppr/Lutein/Zeaxan [Preservision Areds 2 Softgel] 1 cap PO BID 05/02/17 [History] Furosemide [Lasix] 120 mg PO BID 10/07/17 [History] Allergy/AdvReac Type Severity Reaction Status Date / Time No Known Allergies Allergy Verified 10/07/17 09:25 All Systems: The remainder of the systems were reviewed and are negative Review of Systems: Constitutional: Denies fever, chills HEENT: Denies headache, trauma, blurry vision, eye discharge, ear pain, ear discharge neck pain, sore throat, rhinorrhea Heart: Denies chest pain palpitations, reports LE edema Lungs: Reports shortness of breath, denies cough Abdomen: Denies abdominal pain nausea vomiting diarrhea MSK: Denies back pain, falls, joint pain Kidney: Denies dysuria, hematuria Skin: Denies rash, ulcers Neuro: As per history of present illness Psych: denies axniety, depression Physical Examination - Vital Signs Vital Signs: Initial Vital Signs Temp Pulse Resp BP Pulse Ox 97.6 F 70 18 122/81 97 12/28/17 16:35 12/28/17 16:35 12/28/17 16:35 12/28/17 16:35 12/28/17 16:35 - Exam Exam: General: pleasant, without distress HEENT: Head atraumatic, normocephalic, EOMI, PERRL, absent ear discharge or trauma, Moist Mucous Membranes, uvula midline Neck: nontender to palpation, absent lymphadenopathy, Cardiovascualr: Regular rate and rhythm with no murmur, absent gallops or rubs, 1+ bilateral pedal edema, radial pulses 2 out of 4 Lungs: Clear to auscultation bilaterally, not in respiratory distress Abdomen: Soft nontender, nondistended positive bowel sounds, absent hepatomegaly Skin: warm and dry, absent rash, absent open wounds and nodules MSK: absent clubbing, cyanosis, joints without swelling Psych: good insight and judgment, - Constitutional General appearance: comfortable - Neurologic Sensorimotor examination: intact Detailed motor examination: full strength in all major muscle groups Motor examination - right side: 5/5: deltoids, biceps, triceps, wrist flexion, wrist extension, mixing machine tender cork gasket, hip flexors, tibialis Anterior, quadriceps, toe extension (EHL), plantarflexion Motor examination - left side: 5/5: deltoids, biceps, triceps, wrist flexion, wrist extension, hip flexors, mixing machine tender cork gasket, quadriceps, tibialis Anterior, toe extension (EHL), plantarflexion Detailed sensory examination: intact, light touch Reflex and gait examination: normal gait Reflexes: Biceps: 2+, Triceps: 2+, Brachioradialis: 2+, Patella: 2+, Achilles: 2+ Mental Status Examination: awake, alert, oriented to person, oriented to place, oriented to time, follows commands appropriately, answers questions appropriately, no agnosia, no aphasia, no aproxia Cranial nerve examination: PERRL, EOMI, visual baltazar intact, sensory to face intact, mastication intact, no facial asymmetry is present, no dysarthria, hearing is intact symmetrically, soft palate elevates bilaterally upon phonation, flexes SCM and trapezius muscles symmetrically with full power, tongue protrudes midline, no atrophy or facial fasiculations present Cerebellar examination: no dysmetria, performs finger to nose and heel to vitale symmetrically without ataxia, no gait ataxia, no truncal ataxia, no difficulty with rapid alternating movements Results - Laboratory Findings CBC and BMP: 12/31/17 04:39 12/31/17 04:39 Abnormal lab findings: Abnormal lab results Hgb 11.1 g/dL (12.9-16.9) L 12/31/17 04:39 Hct 34.4 % (37.5-50.1) L 12/31/17 04:39 MCV 78.0 fL (83.0-100.0) L 12/31/17 04:39 MCH 25.2 pg (28.0-33.3) L 12/31/17 04:39 RDW 18.5 % (11.5-14.5) H 12/31/17 04:39 PT 17.2 Seconds (9.4-12.1) H 12/30/17 13:40 ABG pH 7.47 pH Units (7.32-7.45) H 12/30/17 17:28 ABG pO2 67 mmHg (85-104) L 12/30/17 17:28 ABG HCO3 31 mEq/L (21-27) H 12/30/17 17:28 ABG Total CO2 33 mEq/L (20-26) H 12/30/17 17:28 ABG O2 Saturation 94 % (95-98) L 12/30/17 17:28 ABG Base Excess 7 mEq/L (-2 to 3) H 12/30/17 17:28 BUN 51 mg/dL (8-23) H 12/31/17 04:39 Creatinine 1.39 mg/dL (0.70-1.30) H 12/31/17 04:39 Est GFR (Non-Af Amer) 50 (> 60) L 12/31/17 04:39 BUN/Creatinine Ratio 37 (6-26) H 12/31/17 04:39 Glucose 169 mg/dL (70-105) H 12/31/17 04:39 POC Glucose 134 mg/dL (70-99) H 12/31/17 08:05 Calculated Osmolality 302 (280-300) H 12/31/17 04:39 Magnesium 2.7 mg/dL (1.6-2.6) H 12/31/17 04:39 Direct Bilirubin 0.3 mg/dL (0.0-0.2) H 12/28/17 17:08 Alkaline Phosphatase 110 Units/L (34-104) H 12/29/17 05:01 Troponin I 0.05 ng/mL (< 0.04) H* 12/29/17 05:01 B-Natriuretic Peptide 817 pg/mL (Less than 100) H 12/28/17 17:08 Consult Discharge Plan - Plan Instructions: Myocardial Infarction (DC), Heart Failure (DC), Chest Pain (DC), Thoracentesis (DC), Urinary Tract Infection in Men (DC), Diabetes Mellitus Type 2 in Adults (DC), Chronic Hypertension (DC), Fall Prevention (DC) Referrals: Dino Manzanares MD [Primary Care Provider] - 01/07/18 10:30 am <Estrada Vasques - Last Filed: 12/31/17 16:02> Time of Encounter: 15:52 Assessment and Plan (1) CVA (cerebral vascular accident) Current Visit: Yes Status: Acute I agree with the assessment and plan as stated above with the exception that the aspirin should be discontinued, and he should be started on anticoagulation.. The infarct appears to be somewhat subacute however. Acute occipital lobe infarcts can manifest as confusion. At this time carotid Doppler study is yet pending. I am concerned that the global left ventricular dysfunction with an ejection fraction of 30% may represent an additional risk for a cardioembolic event. I would recommend again recommend anticoagulation, management of stroke risk factors is paramount. Further recommendations will be made pending completion of the carotid Doppler study. Qualifiers: CVA mechanism: unspecified Qualified Code(s): I63.9 - Cerebral infarction, unspecified History of Present Illness HPI: The chart was reviewed, the patient was seen and examined independently. Case was discussed with Dr. Saravia. I agree with his assessment of the history as stated above. Patient at this time is in no acute distress. Carotid Doppler study is yet pending. The remainder of his workup has been completed. He is been taking aspirin 325 mg daily at home. Echocardiogram reveals an ejection fraction of 30%. This is compounded with other stroke risk factors including hyperlipidemia, diabetes mellitus, and hypertension. He has not been on anticoagulation up to this point. All Systems: The remainder of the systems were reviewed and are negative Review of Systems: The balance of the systems review is negative. Physical Examination - Vital Signs Vital Signs: Initial Vital Signs Temp Pulse Resp BP Pulse Ox 97.6 F 70 18 122/81 97 12/28/17 16:35 12/28/17 16:35 12/28/17 16:35 12/28/17 16:35 12/28/17 16:35 - Exam Exam: I concur with the neurology exam however I did not assess cardiovascular, lungs or abdomen. Results - Laboratory Findings CBC and BMP: 12/31/17 04:39 12/31/17 04:39 Abnormal lab findings: Abnormal lab results Hgb 11.1 g/dL (12.9-16.9) L 12/31/17 04:39 Hct 34.4 % (37.5-50.1) L 12/31/17 04:39 MCV 78.0 fL (83.0-100.0) L 12/31/17 04:39 MCH 25.2 pg (28.0-33.3) L 12/31/17 04:39 RDW 18.5 % (11.5-14.5) H 12/31/17 04:39 PT 17.2 Seconds (9.4-12.1) H 12/30/17 13:40 ABG pH 7.47 pH Units (7.32-7.45) H 12/30/17 17:28 ABG pO2 67 mmHg (85-104) L 12/30/17 17:28 ABG HCO3 31 mEq/L (21-27) H 12/30/17 17:28 ABG Total CO2 33 mEq/L (20-26) H 12/30/17 17:28 ABG O2 Saturation 94 % (95-98) L 12/30/17 17:28 ABG Base Excess 7 mEq/L (-2 to 3) H 12/30/17 17:28 BUN 51 mg/dL (8-23) H 12/31/17 04:39 Creatinine 1.39 mg/dL (0.70-1.30) H 12/31/17 04:39 Est GFR (Non-Af Amer) 50 (> 60) L 12/31/17 04:39 BUN/Creatinine Ratio 37 (6-26) H 12/31/17 04:39 Glucose 169 mg/dL (70-105) H 12/31/17 04:39 POC Glucose 291 mg/dL (70-99) H 12/31/17 11:24 Calculated Osmolality 302 (280-300) H 12/31/17 04:39 Magnesium 2.7 mg/dL (1.6-2.6) H 12/31/17 04:39 Direct Bilirubin 0.3 mg/dL (0.0-0.2) H 12/28/17 17:08 Alkaline Phosphatase 110 Units/L (34-104) H 12/29/17 05:01 Troponin I 0.05 ng/mL (< 0.04) H* 12/29/17 05:01 B-Natriuretic Peptide 817 pg/mL (Less than 100) H 12/28/17 17:08
--- NOTE | 2017-12-31 10:46 | Cardiology Progress Note ---
Date of Encounter: 12/31/17 Time of Encounter: 10:44 Assessment and Plan (1) Acute on chronic systolic (congestive) heart failure Current Visit: Yes Status: Acute Known systolic CHF EF 30%. Reports worsening dyspnea, LE edema and 30 lb weight gain since July. Home diuretic included Lasix 120mg BID. BNP 817, CXR evidence of right sided pleural effusion. Ordered US yesterday of pleural effusion, significant. Thoracentesis ordered--1L of fluid removed. Agree with IV diuresis--On Lasix IV 40mg TID and primary team started Metolazone 5mg daily. CKD, renal function stable. Pt reports compliance with 2L fluid restriction, but does admit to excessive Na intake. CHF teaching discussed. Recommend strict I/Os, Na and fluid restriction, daily weights. Cumulative I/O negative 3955mL. Weight has decreased 6kg since admission. Reports baseline weight is 189lb. Currently 198lb. Recommend continued diuresis until near baseline, then transition to PO Lasix w ith the additional Metolazone that has been started. Cardiology signing off. Reconsult PRN. Will coordinate outpt follow-up in 2-3 weeks. (2) Elevated troponin I measurement Current Visit: Yes Status: Acute Troponins 0.06, 0.07, 0.05 in setting of acute on chronic CHF exacerbation and late subacute/chronic infarct noted on head CT. Demand ischemia, nondiagnostic for ACS. Pt denies CP. TTE EF remains 30%. (3) CAD (coronary artery disease) Current Visit: Yes Status: Chronic Hx of CABG. Continue ASA, Statin, BB. Qualifiers: Coronary Disease-Associated Artery/Lesion type: [place] artery [place] vs. transplanted heart: [place] heart Associated angina: without angina Qualified Code(s): I25.10 - Atherosclerotic heart disease of [place] coronary artery without angina pectoris (4) Ischemic cardiomyopathy Current Visit: No Status: Acute EF 30%, ICD in place. Continue BB and plan to resume ARB after diuresed and if renal function will tolerate. Discussion w patient/family: The assessment and plan as outlined above was discussed with the patient and/or family members who expressed understanding and agreement. All questions were answered. Thank you for involving us in the care of your patient. Please call with any questions. I will discuss all the above with Dr. Sheth and make changes as necessary. Subjective Principal diagnosis: CHF Interval history: Reports symptoms are improving. Denies chest pain. Cumulative I/O -3955mL. Ordered US of right sided pleural effusion yesterday--significant amount of fluid noted and thoracentesis ordered--1L fluid removed. Weight has decreased 6kg from admission. Head CT ordered for altered mental status--late subacute/chronic infarct new since 2016. Neurology following. Objective Vital Signs, Last 4 Hours Pulse Resp BP Pulse Ox 12/31/17 07:56 73 20 103/52 96 Vital Signs Temp Pulse Resp BP Pulse Ox 12/31/17 07:56 73 20 103/52 96 12/31/17 05:53 97.5 F L 69 18 110/60 96 12/31/17 01:37 97.5 F L 76 20 124/68 94 12/30/17 21:46 97.5 F L 74 18 114/68 96 12/30/17 19:15 72 2 120/80 12/30/17 16:22 69 17 120/76 98 12/30/17 15:49 67 18 120/76 94 12/30/17 11:15 97.6 F 72 14 125/66 93 Intake and Output 12/30/17 12/31/17 12/31/17 23:59 07:59 15:59 Intake Total 0 / 0 0 / 0 240 / 240 Output Total 800 / 800 1500 / 1500 Balance -800 / -800 -1500 / -1500 240 / 240 Intake: Oral 0 / 0 0 / 0 240 / 240 Output: Urine 800 / 800 1150 / 1150 Catheter 350 / 350 Other: Meal Breakfast Percent of Meal Consumed 100% # Voids 0 Weight 90 kg Blood Glucose* 189 134 Patient Weight 12/31/17 23:59 Weight 90 kg General: Conversant, No Apparent Distress HEENT: Atraumatic, Normocephaly, Mucus Membranes Moist Neck: Normal carotid pulses Cardiac: Reg Rate and Rhythm, Normal S1 and S2, No Murmur Lungs: Normal Breath Sounds, No Wheeze, Rales, Rhonchi Neuro: Alert and responsive, No focal deficits noted Abdomen: Soft, Non-Tender Skin: No rashes noted on visualized skin Musculoskeletal: No Chest Wall Tenderness Extremities: No Clubbing, No Cyanosis, No Edema, Normal Pulses Results 12/31/17 04:39 12/31/17 04:39 Lab Results 12/30/17 12/31/17 12/31/17 13:40 04:39 04:39 WBC 8.1 Hgb 11.1 L Hct 34.4 L Plt Count 259 INR 1.5 Sodium 137 Potassium 3.8 Chloride 98 Carbon Dioxide 28 BUN 51 H Creatinine 1.39 H Glucose 169 H Calcium 9.5 Magnesium 2.7 H Short CBC 12/31/17 Range/Units 04:39 WBC 8.1 (4.3-11.1) K/mcL Hgb 11.1 L (12.9-16.9) g/dL Hct 34.4 L (37.5-50.1) % Plt Count 259 (140-400) K/mcL Neutrophils # 5.7 (1.6-8.9) K/mcL BMP 12/31/17 Range/Units 04:39 Sodium 137 (136-145) mEq/L Potassium 3.8 (3.5-5.1) mEq/L Chloride 98 (98-107) mEq/L Carbon Dioxide 28 (23-29) mEq/L BUN 51 H (8-23) mg/dL Creatinine 1.39 H (0.70-1.30) mg/dL Glucose 169 H (70-105) mg/dL Calcium 9.5 (8.6-10.3) mg/dL Impressions Thoracentesis 12/30/17 13:46 IMPRESSION: Successful ultrasound guided right thoracentesis. D/ / Delfina Polk MD / Delfina Polk MD Interpreting Provider: Delfina Polk MD Chest X-Ray 12/30/17 14:41 IMPRESSION: Improved aeration at the right lung base. No pleural effusion or pneumothorax. Mild pulmonary vascular congestion. Low lung volumes. Stable mild cardiomegaly. D/ / Justin Abdi MD / Justin Abdi MD Interpreting Provider: Justin Abdi MD X-Ray 12/30/17 17:16 IMPRESSION: No evidence of urinary tract stone disease. Large volume colonic stool without obstruction-query constipation. D/ / Grayson Scott / Grayson Scott Interpreting Provider: Grayson Scott Bladder Ultrasound 12/30/17 17:22 IMPRESSION: 1. Unremarkable appearing bladder without focal wall thickening. No postvoid bladder volume. D/ / Ousmane Dupont MD / Ousmane Dupont MD Interpreting Provider: Ousmane Dupont MD Head CT 12/30/17 18:00 IMPRESSION: Wedge-shaped area of hypoattenuation within the right parietooccipital region, compatible with late subacute to chronic infarct. This is new when compared to the previous exam from 08/09/2015. No evidence of acute infarct identified. No hemorrhages within the brain parenchyma. Consider further evaluation with MRI. D/ / Hemant Nixon MD / Hemant Nixon MD Interpreting Provider: Hemant Nixon MD Active Medications Aspirin (Aspirin Ec) 81 mg PO DAILY ANASTASIYA Stop: 07/02/18 09:01 Last Admin: 12/31/17 08:58 Dose: 81 mg Clopidogrel Bisulfate (Plavix) 75 mg PO DAILY ANASTASIYA Stop: 07/01/18 19:46 Last Admin: 12/31/17 08:58 Dose: 75 mg Dextrose/Water (Dextrose 50% (Syg)) 25 ml IVP AD PRN PRN Reason: Hypoglycemia Stop: 06/30/18 01:18 Last Admin: 12/29/17 16:44 Dose: 25 ml Furosemide (Lasix) 40 mg IVP TIDDIURETIC ANASTASIYA Stop: 06/30/18 17:01 Last Admin: 12/31/17 08:58 Dose: 40 mg Gabapentin (Neurontin) 300 mg PO TID ANASTASIYA Stop: 06/30/18 09:01 Last Admin: 12/31/17 08:58 Dose: 300 mg Glucagon (Glucagen) 1 mg IM ONCE PRN PRN Reason: Hypoglycemia Stop: 06/30/18 01:18 Glucose (Gluctose) 15 gm PO ONCE PRN PRN Reason: Hypoglycemia Stop: 06/30/18 01:18 Glucose (Gluctose) 30 gm PO ONCE PRN PRN Reason: Hypoglycemia Stop: 06/30/18 01:18 Heparin Sodium (Porcine) (Heparin) 5,000 unit SQ Q8HCO [facility] Stop: 06/30/18 06:01 Last Admin: 12/31/17 06:23 Dose: 5,000 unit Dextrose (Dextrose 5%) 1,000 mls @ 100 mls/hr IVC .Q10H PRN PRN Reason: HYPOGLYCEMIA Stop: 06/30/18 01:18 Insulin Detemir (Levemir) 10 unit SQ [facility] Stop: 06/30/18 21:01 Last Admin: 12/30/17 22:00 Dose: 10 unit Insulin Human Lispro (Humalog) 0 units SQ TIDAC [facility]; Protocol Stop: 06/30/18 07:31 Last Admin: 12/31/17 08:58 Dose: Not Given Insulin Human Lispro (Humalog) 0 units SQ [facility]; Protocol Stop: 06/30/18 21:01 Last Admin: 12/30/17 21:57 Dose: Not Given Metolazone (Zaroxolyn) 5 mg PO 0730 [facility] Stop: 06/30/18 14:31 Last Admin: 12/31/17 06:23 Dose: 5 mg Metoprolol Tartrate (Lopressor) 25 mg PO BID [facility] Stop: 06/30/18 09:01 Last Admin: 12/31/17 08:58 Dose: 25 mg Multivitamins/Calcium (Thera M Plus) 1 tab PO DAILY [facility] Stop: 06/30/18 09:01 Last Admin: 12/31/17 08:58 Dose: 1 tab Naloxone HCl (Narcan) 0.4 mg IVP Q2MIN PRN PRN Reason: SEE COMMENTS Stop: 06/29/18 22:50 Nitroglycerin (Nitroglycerin) 0.4 mg SL Q5MIN PRN PRN Reason: Chest Pain Stop: 06/30/18 08:05 Pantoprazole Sodium (Protonix) 40 mg IVP DAILY [facility] Stop: 07/02/18 09:01 Last Admin: 12/31/17 08:58 Dose: 40 mg Simvastatin (Zocor) 20 mg PO [facility]; Protocol Stop: 06/30/18 21:01 Last Admin: 12/30/17 21:55 Dose: 20 mg - Imaging and Cardiology Echo: report reviewed - EKG Interpretation EKG results cardiology: other (12 hr tele AVG HR 75, paced) Consult Discharge Plan - Plan Instructions: Myocardial Infarction (DC), Heart Failure (DC), Chest Pain (DC), Thoracentesis (DC), Urinary Tract Infection in Men (DC), Diabetes Mellitus Type 2 in Adults (DC), Chronic Hypertension (DC), Fall Prevention (DC) Referrals: Dino Manzanares MD [Primary Care Provider] - 01/07/18 10:30 am
[2017-12-31] MEDS: Insulin DETEMIR 100 UNIT/ML X5UNITS SQ SCH (21:45)
[2018-01-01 04:51] LABS: Basophils # 0.1 K/mcL (0.0-0.2); Basophils % 1.2 %; Eosinophils # 0.7 K/mcL (0.0-0.6); Eosinophils % 9.1 %; Hematocrit 31.6 % (37.5-50.1); Hemoglobin 10.4 g/dL (12.9-16.9); Immature Granulocytes % 0.1 % (0-4); Lymphocytes % 13.7 %; Mean Corpuscular HGB Conc 32.9 g/dL (31.6-35.5); Mean Corpuscular Hemoglobin 25.4 pg (28.0-33.3); Mean Corpuscular Volume 77.1 fL (83.0-100.0); Mean Platelet Volume 9.7 fL (9.4-12.4); Monocytes # 0.9 K/mcL (0.0-1.3); Monocytes % 12.4 %; Neutrophils # 4.7 K/mcL (1.6-8.9); Platelet Count 250 K/mcL (140-400); Red Cell Distribution Width 18.3 % (11.5-14.5); Segmented Neutrophils % 63.5 %
[2018-01-01 05:07] LABS: BUN/Creatinine Ratio 38 (6-26); Blood Urea Nitrogen 49 mg/dL (8-23); Calcium 9.1 mg/dL (8.6-10.3); Carbon Dioxide 34 mEq/L (23-29); Chloride 97 mEq/L (98-107); Glucose 131 mg/dL (70-105); Magnesium 2.4 mg/dL (1.6-2.6); Osmolality,Calculated 305 (280-300); Phosphorous 4.2 mg/dL (2.7-4.5); Potassium 3.5 mEq/L (3.5-5.1); Sodium 140 mEq/L (136-145); eGFR For Non-African Americans 55 (> 60)
[2018-01-01] MEDS: *HR* Heparin 5,000 UNIT/ML VIAL SQ SCH ×2 (05:17→13:59)
[2018-01-01 07:23] VITALS: BP 124/66
--- NOTE | 2018-01-01 09:18 | Discharge Summary ---
Orders not resulted at time of discharge: Pending orders 12/30/17 14:40 Cytology [PTH] Routine 12/30/17 19:46 Culture,Urine [RM] Stat 01/02/18 04:00 Basic Metabolic Panel AM 0400 CBC [Complete Blood Count] [HEME] AM 0400 Magnesium AM 0400 Phosphorous AM 0400 01/03/18 04:00 Basic Metabolic Panel AM 0400 CBC [Complete Blood Count] [HEME] AM 0400 Magnesium AM 0400 Phosphorous AM 0400 01/04/18 04:00 Basic Metabolic Panel AM 0400 CBC [Complete Blood Count] [HEME] AM 0400 Magnesium AM 0400 Phosphorous AM 0400 01/05/18 04:00 Basic Metabolic Panel AM 0400 CBC [Complete Blood Count] [HEME] AM 0400 Magnesium AM 0400 Phosphorous AM 0400 Date of Encounter: 01/01/18 Time of Encounter: 09:30 - Discharge Diagnosis (1) Acute on chronic systolic (congestive) heart failure Priority: Primary Status: Acute Assessment and Plan: 72 year old male with a past medical history of coronary artery disease status post CABG, ischemic cardiomyopathy status post AICD, systolic heart failure and diabetes who presented to the ED with complaints of worsening lower extremity edema. Patient states that despite medication and dietary compliance he continues to retain fluid. Based on most recent pharmacy confirm dosing patient is taking 120 mg of Lasix twice a day. Patient states despite taking his medication he cannot seem to keep the fluid off. Patient reports that his baseline weight should be approximately 189 pounds but reports that he has gained approximately 30 pounds over the past few months. Patient denies any chest pain, shortness of breath, PND, orthopnea. He was assessed with an acute worsening of chronic systolic CHF. He has an EF of 30% and takes high doses of po lasix at home but is apparently non compliant with a low salt diet. He was started on lasix 40mg IV TID and metolazone was added to regimen. Cardiology was consulted. Analia e continued on diuresis and therapeutic thoracentesis with drainage of 1L of fluid on 12/30. His SOB has improved. In total we were able to take off about 20pounds of fluid during his stay HE had an episode of confusion during his stay with possible stroke suspected. He had a CT head showing a subacute to chronic infarct. He was seen by neurology and plavix was added to his regimen. He was discharged in a stable condition. Will continue on high dose lasix and metolazone on discharge. (2) Elevated troponin I measurement Priority: Primary Status: Acute (3) CAD (coronary artery disease) Priority: Primary Status: Chronic Qualifiers: Coronary Disease-Associated Artery/Lesion type: [place] artery [place] vs. transplanted heart: [place] heart Associated angina: without angina Qualified Code(s): I25.10 - Atherosclerotic heart disease of [place] coronary artery without angina pectoris (4) DM2 (diabetes mellitus, type 2) Priority: Primary Status: Chronic Qualifiers: Diabetes mellitus [facility] insulin use: with [facility] use Diabetes mellitus complication status: without complication Qualified Code(s): E11.9 - Type 2 diabetes mellitus without complications; Z79.4 - longterm (current) use of insulin (5) CVA (cerebral vascular accident) Priority: Primary Status: Acute Qualifiers: CVA mechanism: unspecified Qualified Code(s): I63.9 - Cerebral infarction, unspecified (6) DVT prophylaxis Priority: Primary Status: Acute Hospital course: Mr. De La Cruz is a 72 year old male - Time Spent with Patient Total time spent providing and/or coordinating discharge services: - Discharge Medications Prescriptions: Aspirin Enteric Coated [Aspirin EC] 81 mg PO DAILY #30 tablet. Clopidogrel [Plavix] 75 mg PO DAILY 30 Days #30 tablet Furosemide [Lasix] 80 mg PO TID 30 Days #90 tablet metOLazone [Zaroxolyn] 5 mg PO 729 30 Days #30 tablet Home Medications: Insulin Glargine [Lantus] 20 unit SQ HS 08/09/15 [History] Multivitamin [Multivitamins] 1 each PO DAILY 09/12/15 [History] GlipiZIDE XL (24 HR) [Glucotrol XL] 10 mg PO BID 09/13/15 [History] Metoprolol [Lopressor] 25 mg PO BID 09/13/15 [History] Nitroglycerin 0.4 mg SL Q5MIN PRN #30 tab.subl 09/13/15 [Rx] Simvastatin [Zocor] 20 mg PO HS #30 tablet 09/13/15 [Rx] Esomeprazole Magnesium [Nexium 24Hr] 20 mg PO DAILY 05/02/17 [History] Gabapentin [Neurontin] 300 mg PO TID 05/02/17 [History] Losartan Potassium [Cozaar] 50 mg PO DAILY 05/02/17 [History] Vit C/E/Zn/Coppr/Lutein/Zeaxan [Preservision Areds 2 Softgel] 1 cap PO BID 05/02/17 [History] Aspirin Enteric Coated [Aspirin EC] 81 mg PO DAILY #30 tablet. 01/01/18 [Rx] Clopidogrel [Plavix] 75 mg PO DAILY 30 Days #30 tablet 01/01/18 [Rx] Furosemide [Lasix] 80 mg PO TID 30 Days #90 tablet 01/01/18 [Rx] metOLazone [Zaroxolyn] 5 mg PO 0730 30 Days #30 tablet 01/01/18 [Rx] Allergies/Adverse Reactions: Allergy/AdvReac Type Severity Reaction Status Date / Time No Known Allergies Allergy Verified 10/07/17 09:25 Date of admission: 12/29/17 13:00 Primary care physician: Dino Manzanares MD Consults: 12/29/17 01:25 Consult to Cardiology [CONS] Routine Comment: Consulting Provider: Cardiology Shobha Reason for Consult: CHF Call Completed: No 12/30/17 12:54 Consult to Interventional Radiology [CONS] Routine Consulting Provider: Radiology Interventional [facility] Reason for Consult: ultrasound right pleural effusion to determine amount of fluid. Call Completed: Yes 12/30/17 16:44 Consult to Urology [CONS] Routine Consulting Provider: Urology [facility] Reason for Consult: Urinary retention with penile swelling Call Completed: Yes 12/30/17 19:03 Consult to Neurology [CONS] Stat Consulting Provider: [facility] Reason for Consult: new acute cva Call Completed: Yes - Constitutional Vitals: Temp Pulse Resp BP Pulse Ox 97.9 F 88 16 124/66 93 01/01/18 07:15 01/01/18 07:15 01/01/18 07:15 01/01/18 07:15 01/01/18 07:15 Exam: General: Alert and oriented 3; lying in bed in no acute distress Skin:Normal color, no rash, no lesions. HEENT:EOM, pupils equal, round and reactive. Cardiovascular:Normal S1 & S2, no rubs, murmurs or gallops. No JVD. Pulse regular. Lungs:Normal breath sounds, no wheezes or crackles. Abdomen: Distended but Soft, non-tender, no rigidity. Extremities:No deformity, edema improved Neurological:Normal cognition and motor skills. Pulses:Carotid and radial pulses normal +2. Rest of the physical exam is non contributory - Patient Status Disposition: Home, Self-Care Condition: Good - Discharge Instructions Instructions: Metolazone (By mouth), Furosemide (By mouth), Aspirin (By mouth), Clopidogrel (By mouth), Myocardial Infarction (DC), Heart Failure (DC), Chest Pain (DC), Thoracentesis (DC), Urinary Retention in Men (GEN), Urinary Tract Infection in Men (DC), Diabetes Mellitus Type 2 in Adults (DC), Ischemic Stroke (DC), Ischemic Stroke (GEN), Chronic Hypertension (DC), Fall Prevention (DC), Bladder Ultrasound (GEN) Follow Up With: Dino Manzanares MD [Primary Care Provider] - 01/07/18 10:30 am
[2018-01-01] MEDS: Multivit/Ca/Min/Fe/FA 1 TAB TABLET PO SCH (10:53)
[2018-01-01] MEDS: Insulin LISPRO 300 UNITS/3 ML VIAL SQ SCH ×2 (10:53→13:57)
[2018-01-01] MEDS: Gabapentin 300 MG CAPSULE PO SCH (10:53)
[2018-01-01] MEDS: Aspirin Enteric Coated 81 MG Tablet PO SCH (10:53)
[2018-01-01] MEDS: Furosemide 40 MG/4 ML VIAL IVP SCH ×2 (10:54→13:59)
[2018-01-01] MEDS: metOLazone 5 MG TABLET PO SCH (10:54)
[2018-01-01] MEDS: Pantoprazole 40 MG VIAL IVP SCH (10:54)
--- NOTE | 2018-01-01 21:30 | Electrocardiograph Report ---
[place] [id number] Test Date: 2017-12-28 Pat Name: Jodie De La Cruz Department: [id number] Room: [facility] Gender: M [employer]: : 1945 Requested By: Elizabeth Maldonado Order Number: [id number] Reading MD: Anaid Christy Measurements Intervals [place] Rate: 70 P: 69 MN: 154 QRS: -72 QRSD: 210 T: 107 QT: 540 QTc: 583 Interpretive Statements Ventricular-paced complexes No further analysis attempted due to paced rhythm Electronically Signed On 01-01-2018 21:29:20 EDT by Anaid Christy
== END 2018-01-01 15:46 | disposition home or self-care (01) | DRG 291 ==
LOC: EMEROOARM 16:30 → 2NENU 16:30 → SUATTDRO 12-29 13:00
PROVIDERS: ADMIT Internal Medicine Nephrology; ATTEND Student in an Organized Health Care Education/Training Program

== ENCOUNTER 2019-10-10 16:53 | Inpatient (IN) ==
[2019-10-10] MEDS ORDERED: Naloxone 0.4 MG/ML INJ IVP PRN (19:56)
[2019-10-10 20:27] LABS: Basophils # 0.1 K/mcL (0.0-0.2); Basophils % 0.4 %; Eosinophils % 0.2 %; Hematocrit 34.3 % (37.5-50.1); Immature Granulocytes % 1.1 % (0-4); Lymphocytes # 1.1 K/mcL (0.6-4.6); Mean Corpuscular HGB Conc 32.1 g/dL (31.6-35.5); Mean Corpuscular Hemoglobin 28.4 pg (28.0-33.3); Mean Corpuscular Volume 88.6 fL (83.0-100.0); Mean Platelet Volume 9.9 fL (9.4-12.4); Monocytes # 1.4 K/mcL (0.0-1.3); Monocytes % 7.5 %; Neutrophils # 16.2 K/mcL (1.6-8.9); Platelet Count 271 K/mcL (140-400); Red Blood Count 3.87 M/mcL (4.19-5.50); Red Cell Distribution Width 16.8 % (11.5-14.5); Segmented Neutrophils % 84.8 %; White Blood Count 19.1 K/mcL (4.3-11.1)
[2019-10-10 20:31] LABS: INR 1.9; Prothrombin Time 21.6 Seconds (9.4-12.1)
[2019-10-10 20:34] LABS: Activated Partial Thrombo Time 29.2 Seconds (26.0-36.0)
[2019-10-10 20:46] LABS: Albumin/Globulin Ratio 0.8 (1.1-2.2); Bilirubin,Total 1.4 mg/dL (0.3-1.0); Calcium 8.2 mg/dL (8.6-10.3); Globulin 3.7 g/dL (2.4-3.5); Magnesium 2.4 mg/dL (1.6-2.6); Phosphorous 3.1 mg/dL (2.7-4.5); Total Protein 6.7 g/dL (6.4-8.9)
[2019-10-10] MEDS ORDERED: D5% in Water 1,000 ML IVC PRN (21:28)
[2019-10-10] MEDS ORDERED: Dextrose Gel 15 GM/37.5 ML TUBE PO PRN ×2 (21:28)
[2019-10-10] MEDS ORDERED: *HR* Dextrose 50 % in Water (Vial) 50 ML VIAL IVP PRN (21:28)
[2019-10-11 03:34] LABS: Hematocrit 34.4 % (37.5-50.1); Hemoglobin 11.3 g/dL (12.9-16.9); Mean Corpuscular HGB Conc 32.8 g/dL (31.6-35.5); Mean Corpuscular Hemoglobin 28.7 pg (28.0-33.3); Mean Corpuscular Volume 87.3 fL (83.0-100.0); Mean Platelet Volume 10.1 fL (9.4-12.4); Platelet Count 275 K/mcL (140-400); Red Blood Count 3.94 M/mcL (4.19-5.50); Red Cell Distribution Width 16.4 % (11.5-14.5); White Blood Count 17.4 K/mcL (4.3-11.1)
[2019-10-11 03:44] LABS: INR 1.8; Prothrombin Time 20.2 Seconds (9.4-12.1)
[2019-10-11 03:51] LABS: Albumin 2.9 g/dL (3.5-5.7); Albumin/Globulin Ratio 0.8 (1.1-2.2); Bilirubin,Direct 0.8 mg/dL (0.0-0.2); Bilirubin,Indirect 0.7 mg/dL (0.0-1.0); Bilirubin,Total 1.5 mg/dL (0.3-1.0); Calcium 8.1 mg/dL (8.6-10.3); Globulin 3.7 g/dL (2.4-3.5); Potassium 4.2 mEq/L (3.5-5.1); Total Protein 6.6 g/dL (6.4-8.9)
[2019-10-11] MEDS: Insulin LISPRO 300 UNITS/3 ML VIAL SQ SCH ×4 (07:02→22:31)
[2019-10-11] MEDS ORDERED: Acetylcysteine 3,900 MG in D5% in Water 500 ML IVC ONE ×2 (09:05→11:00)
[2019-10-11] MEDS ORDERED: WATER IVC ONE ×2 (09:31→16:00)
[2019-10-11] MEDS ORDERED: D5 IVC ONE ×2 (09:31→16:00)
[2019-10-11] MEDS ORDERED: ACETYLCYSTEINE IVC ONE ×2 (09:31→16:00)
[2019-10-11 10:05] LABS: Thyroid Stimulating Hormone 4.117 mcIU/mL (0.340-5.600)
[2019-10-11 10:25] LABS: Acetaminophen < 10 mcg/mL (10-20); C-Reactive Protein 198 mg/L (Less than 10); Ethanol < 10 mg/dL (Less than 10)
[2019-10-11] MEDS: ceFAZolin 2,000 MG in 0.9 % Sodium Chloride 100 ML IVPB SCH ×2 (10:40→22:45)
[2019-10-11 11:22] LABS: Procalcitonin 4.31 ng/mL (0.00-0.15)
[2019-10-11 11:55] LABS: Hepatitis B Surface Antigen Nonreactive (Nonreactive)
[2019-10-11] MEDS ORDERED: Ketorolac 15 MG/ML VIAL IVP ONE (12:11)
[2019-10-11 12:24] LABS: Hepatitis B Core IgM Nonreactive (Nonreactive)
[2019-10-11 12:25] LABS: Hepatitis A Antibody IgM Nonreactive (Nonreactive); Hepatitis C Virus Antibody Nonreactive (Nonreactive)
[2019-10-11 13:30] LABS: Uric Acid 13.9 mg/dL (2.3-7.6)
[2019-10-11 14:54] LABS: Amphetamine Screen,Urine Negative ng/mL (Cutoff=1000); Barbiturate Screen,Urine Negative ng/mL (Cutoff=200); Benzodiazepines Screen,Urine Negative ng/mL (Cutoff=200); Cannabinoid Screen,Urine Negative ng/mL (Cutoff = 50); Cocaine Screen,Urine Negative ng/mL (Cutoff= 300); Opiate Screen,Urine Negative ng/mL (Cutoff=300); Phencyclidine Screen,Urine Negative ng/mL (Cutoff=25)
[2019-10-11 15:07] LABS: Creatinine,Urine 90 mg/dL; Protein/Creatinine Ratio,Urine 0.28 mg/mg (0.00-0.20); Sodium, Urine < 10.0 mEq/L
[2019-10-11] MEDS ORDERED: Perflutren Lipid Microsphere 1.3 ML in 0.9 % Sodium Chloride 8.7 ML IVP PRN (15:09)
[2019-10-11] MEDS ORDERED: Albumin 25% 25gram/100mL 25 GM/100 ML IV.SOLN IVPB ONE (17:27)
[2019-10-11] MEDS: *HR* Heparin 5,000 UNIT/ML VIAL SQ SCH (17:49)
[2019-10-11 19:21] LABS: Bilirubin,Urine Negative (Negative); Blood,Urine Moderate (Negative); Clarity,Urine Turbid (Clear); Color,Urine Yellow (Yellow); Glucose,Urine (UA) Normal (Normal); Ketones,Urine Negative (Negative); Leukocyte Esterase,Urine Large (Negative); Nitrite,Urine Negative (Negative); Protein,Urine Trace mg/dL (Neg-Trace); Specific Gravity,Urine 1.014 (1.010-1.025)
[2019-10-11 19:24] LABS: Bacteria,Urine None Seen per hpf (None-Few); Hyaline Casts,Urine Moderate per lpf (None Seen); Squamous Epithelial Cell,Urine Few per hpf (None-Few)
[2019-10-12 02:53] LABS: Hematocrit 32.3 % (37.5-50.1); Hemoglobin 10.5 g/dL (12.9-16.9); Mean Corpuscular HGB Conc 32.5 g/dL (31.6-35.5); Mean Corpuscular Hemoglobin 28.7 pg (28.0-33.3); Mean Corpuscular Volume 88.3 fL (83.0-100.0); Platelet Count 254 K/mcL (140-400); Red Blood Count 3.66 M/mcL (4.19-5.50); Red Cell Distribution Width 16.7 % (11.5-14.5); White Blood Count 17.2 K/mcL (4.3-11.1)
[2019-10-12 03:12] LABS: Calcium 8.1 mg/dL (8.6-10.3); Potassium 3.6 mEq/L (3.5-5.1)
[2019-10-12] MEDS: *HR* Heparin 5,000 UNIT/ML VIAL SQ SCH ×2 (05:45→18:16)
[2019-10-12] MEDS: Aspirin Enteric Coated 81 MG Tablet PO SCH (07:42)
[2019-10-12] MEDS: Insulin LISPRO 300 UNITS/3 ML VIAL SQ SCH ×4 (07:42→21:26)
[2019-10-12 08:32] LABS: Albumin 3.1 g/dL (3.5-5.7); Bilirubin,Direct 0.9 mg/dL (0.0-0.2); Bilirubin,Indirect 0.6 mg/dL (0.0-1.0); Bilirubin,Total 1.5 mg/dL (0.3-1.0); Globulin 3.1 g/dL (2.4-3.5); Total Protein 6.2 g/dL (6.4-8.9)
[2019-10-12 09:48] LABS: Prothrombin Time 22.3 Seconds (9.4-12.1)
[2019-10-12] MEDS: ceFAZolin 2,000 MG in 0.9 % Sodium Chloride 100 ML IVPB SCH ×2 (10:54→21:38)
[2019-10-12 14:08] LABS: AFP Tumor Marker Non-Pregnant 1 ng/mL (0-9)
[2019-10-12] MEDS: Albumin 25% 25gram/100mL 25 GM/100 ML IV.SOLN IVPB SCH (15:47)
[2019-10-13] MEDS: Albumin 25% 25gram/100mL 25 GM/100 ML IV.SOLN IVPB SCH ×2 (00:18→10:05)
[2019-10-13 02:49] LABS: Hematocrit 31.8 % (37.5-50.1); Hemoglobin 10.5 g/dL (12.9-16.9); Mean Corpuscular Volume 87.8 fL (83.0-100.0); Mean Platelet Volume 10.1 fL (9.4-12.4); Platelet Count 269 K/mcL (140-400); Red Blood Count 3.62 M/mcL (4.19-5.50); Red Cell Distribution Width 16.6 % (11.5-14.5); White Blood Count 17.7 K/mcL (4.3-11.1)
[2019-10-13 02:50] LABS: INR 1.7; Prothrombin Time 19.5 Seconds (9.4-12.1)
[2019-10-13 03:12] LABS: Calcium 8.8 mg/dL (8.6-10.3); Potassium 3.2 mEq/L (3.5-5.1)
[2019-10-13] MEDS: *HR* Heparin 5,000 UNIT/ML VIAL SQ SCH ×2 (05:14→18:02)
[2019-10-13 08:04] LABS: ANA IgG by ELISA NONE DETECTED (None Detected)
[2019-10-13 08:05] LABS: F-Actin (sm muscle) Ab IgG 11 Units (0-19)
[2019-10-13 08:30] LABS: Serine Protease-3 Antibody 3 AU/mL (0-19)
[2019-10-13 09:06] LABS: Albumin 3.5 g/dL (3.5-5.7); Albumin/Globulin Ratio 1.1 (1.1-2.2); Bilirubin,Direct 1.1 mg/dL (0.0-0.2); Bilirubin,Indirect 0.8 mg/dL (0.0-1.0); Bilirubin,Total 1.9 mg/dL (0.3-1.0); Globulin 3.3 g/dL (2.4-3.5); Total Protein 6.8 g/dL (6.4-8.9)
[2019-10-13] MEDS: Aspirin Enteric Coated 81 MG Tablet PO SCH (10:05)
[2019-10-13] MEDS: Insulin LISPRO 300 UNITS/3 ML VIAL SQ SCH ×4 (10:28→23:01)
[2019-10-13] MEDS ORDERED: Ampicillin/Sulbactam 3,000 MG in 0.9 % Sodium Chloride Mini Bag 100 ML IVPB SCH (12:00)
[2019-10-13] MEDS: ceFAZolin 2,000 MG in 0.9 % Sodium Chloride 100 ML IVPB SCH (12:23)
[2019-10-13] MEDS ORDERED: 0.9 % Sodium Chloride 1,000 ML ONE (14:09)
[2019-10-13] MEDS ORDERED: *HR* Heparin 10,000 UNIT/10 ML VIAL ONE (14:09)
[2019-10-13] MEDS: *HR* Acetylcysteine 20% 600 MG/3 ML ORAL SYRINGE PO SCH ×2 (14:26→22:12)
[2019-10-13] MEDS ORDERED: *HR* FentaNYL (PF) 100 MCG/2 ML VIAL ONE (15:10)
[2019-10-13] MEDS ORDERED: *HR* Midazolam HCl 2 MG/2 ML VIAL ONE (15:10)
[2019-10-13] MEDS ORDERED: Isovue-300 200 mL Infus..BTL ONE (15:36)
[2019-10-13] MEDS ORDERED: Heparin 1,000 UNITS/500 mL 500 ML ONE ×2 (15:42→16:49)
[2019-10-13] MEDS ORDERED: Acetaminophen 325 MG TABLET PO PRN (17:17)
[2019-10-13] MEDS ORDERED: Ondansetron 4 MG/2 ML VIAL IVP PRN (17:17)
[2019-10-13] MEDS: Piperacillin/Tazobactam 3.375 GM in 0.9 % Sodium Chloride Mini Bag 100 ML IVPB SCH (17:52)
[2019-10-13] MEDS ORDERED: *HR* LORazepam 2 MG/ML VIAL IVP STA (17:53)
[2019-10-13] MEDS: 0.9 % Sodium Chloride 1,000 ML IVC SCH (18:09)
[2019-10-13] MEDS ORDERED: *HR* Atropine Sulfate 1 MG/10 ML SYRINGE ONE ×2 (19:26→20:00)
[2019-10-13] MEDS ORDERED: *HR* LORazepam 2 MG/ML VIAL ONE (22:00)
[2019-10-13] MEDS ORDERED: *HR* LORazepam 2 MG/ML VIAL IVP ONE (22:04)
[2019-10-14] MEDS: 0.9 % Sodium Chloride 1,000 ML IVC SCH (00:10)
[2019-10-14] MEDS: Piperacillin/Tazobactam 3.375 GM in 0.9 % Sodium Chloride Mini Bag 100 ML IVPB SCH ×4 (00:11→23:29)
[2019-10-14] MEDS: *HR* Heparin 5,000 UNIT/ML VIAL SQ SCH ×2 (05:53→18:37)
[2019-10-14] MEDS: Insulin LISPRO 300 UNITS/3 ML VIAL SQ SCH ×4 (08:21→20:25)
[2019-10-14] MEDS ORDERED: flumazeniL 0.5 MG/5 ML VIAL IVP ONE (08:46)
[2019-10-14] MEDS: Aspirin Enteric Coated 81 MG Tablet PO SCH (08:56)
[2019-10-14] MEDS: *HR* Acetylcysteine 20% 600 MG/3 ML ORAL SYRINGE PO SCH ×2 (08:57→20:20)
[2019-10-14 09:54] LABS: INR 1.8; Prothrombin Time 20.5 Seconds (9.4-12.1)
[2019-10-14 10:05] LABS: Hematocrit 34.5 % (37.5-50.1); Hemoglobin 10.9 g/dL (12.9-16.9); Mean Corpuscular HGB Conc 31.6 g/dL (31.6-35.5); Mean Corpuscular Hemoglobin 28.1 pg (28.0-33.3); Mean Corpuscular Volume 88.9 fL (83.0-100.0); Mean Platelet Volume 10.3 fL (9.4-12.4); Platelet Count 291 K/mcL (140-400); Red Blood Count 3.88 M/mcL (4.19-5.50); Red Cell Distribution Width 17.5 % (11.5-14.5); White Blood Count 18.7 K/mcL (4.3-11.1)
[2019-10-14 11:06] LABS: Albumin 3.4 g/dL (3.5-5.7); Bilirubin,Total 2.1 mg/dL (0.3-1.0); Calcium 8.9 mg/dL (8.6-10.3); Globulin 3.3 g/dL (2.4-3.5); Total Protein 6.7 g/dL (6.4-8.9)
[2019-10-14] MEDS ORDERED: Furosemide 40 MG/4 ML VIAL IVP ONE (12:46)
[2019-10-14] MEDS ORDERED: *HR* LORazepam 2 MG/ML VIAL IVP ONE ×2 (13:08→19:05)
[2019-10-15] MEDS: *HR* Heparin 5,000 UNIT/ML VIAL SQ SCH ×2 (04:56→17:54)
[2019-10-15] MEDS: Piperacillin/Tazobactam 3.375 GM in 0.9 % Sodium Chloride Mini Bag 100 ML IVPB SCH ×3 (08:12→23:31)
[2019-10-15] MEDS: Insulin LISPRO 300 UNITS/3 ML VIAL SQ SCH ×4 (08:14→20:17)
[2019-10-15] MEDS: Aspirin Enteric Coated 81 MG Tablet PO SCH (08:14)
[2019-10-15] MEDS ORDERED: Furosemide 20 MG/2 ML VIAL IVP ONE ×2 (11:04→14:45)
[2019-10-15 12:34] LABS: Basophils # 0.1 K/mcL (0.0-0.2); Basophils % 0.3 %; Eosinophils # 0.1 K/mcL (0.0-0.6); Eosinophils % 0.6 %; Hematocrit 34.2 % (37.5-50.1); Immature Granulocytes % 0.9 % (0-4); Lymphocytes # 0.5 K/mcL (0.6-4.6); Mean Corpuscular HGB Conc 32.2 g/dL (31.6-35.5); Mean Corpuscular Hemoglobin 28.9 pg (28.0-33.3); Mean Platelet Volume 9.8 fL (9.4-12.4); Monocytes # 0.9 K/mcL (0.0-1.3); Monocytes % 5.3 %; Neutrophils # 15.7 K/mcL (1.6-8.9); Nucleated Red Blood Cells 0.1 /100 WBC (0); Platelet Count 309 K/mcL (140-400); Red Cell Distribution Width 17.9 % (11.5-14.5); Segmented Neutrophils % 89.9 %; White Blood Count 17.5 K/mcL (4.3-11.1)
[2019-10-15 12:54] LABS: Calcium 8.9 mg/dL (8.6-10.3); Potassium 3.8 mEq/L (3.5-5.1)
[2019-10-15] MEDS ORDERED: 0.9 % Sodium Chloride 500 ML IVC SCH (14:15)
[2019-10-15] MEDS ORDERED: *HR* LORazepam 2 MG/ML VIAL IVP ONE ×2 (15:34→20:48)
[2019-10-15] MEDS: Doxycycline 100 MG in 0.9 % Sodium Chloride Mini Bag 100 ML IVPB SCH (19:04)
[2019-10-15] MEDS ORDERED: QUEtiapine Fumarate 25 MG TABLET PO SCH (21:00)
[2019-10-16] MEDS: Doxycycline 100 MG in 0.9 % Sodium Chloride Mini Bag 100 ML IVPB SCH ×2 (06:21→19:12)
[2019-10-16] MEDS: *HR* Heparin 5,000 UNIT/ML VIAL SQ SCH ×2 (06:22→19:13)
[2019-10-16] MEDS ORDERED: *HR* Metoprolol 5 MG/5 ML VIAL IVP ONE (09:07)
[2019-10-16] MEDS: Piperacillin/Tazobactam 3.375 GM in 0.9 % Sodium Chloride Mini Bag 100 ML IVPB SCH ×3 (09:58→20:46)
[2019-10-16] MEDS: Insulin LISPRO 300 UNITS/3 ML VIAL SQ SCH ×4 (09:59→21:00)
[2019-10-16] MEDS: Aspirin Enteric Coated 81 MG Tablet PO SCH (10:03)
[2019-10-16 10:26] LABS: Basophils # 0.1 K/mcL (0.0-0.2); Basophils % 0.4 %; Eosinophils # 0.1 K/mcL (0.0-0.6); Eosinophils % 0.5 %; Hematocrit 35.1 % (37.5-50.1); Hemoglobin 11.1 g/dL (12.9-16.9); Immature Granulocytes % 0.8 % (0-4); Lymphocytes # 0.8 K/mcL (0.6-4.6); Lymphocytes % 4.6 %; Mean Corpuscular HGB Conc 31.6 g/dL (31.6-35.5); Mean Corpuscular Hemoglobin 28.9 pg (28.0-33.3); Mean Corpuscular Volume 91.4 fL (83.0-100.0); Mean Platelet Volume 9.9 fL (9.4-12.4); Monocytes # 0.9 K/mcL (0.0-1.3); Monocytes % 4.9 %; Neutrophils # 15.6 K/mcL (1.6-8.9); Nucleated Red Blood Cells 0.2 /100 WBC (0); Platelet Count 317 K/mcL (140-400); Red Blood Count 3.84 M/mcL (4.19-5.50); Red Cell Distribution Width 18.9 % (11.5-14.5); Segmented Neutrophils % 88.8 %; White Blood Count 17.6 K/mcL (4.3-11.1)
[2019-10-16 10:29] LABS: INR 1.8; Prothrombin Time 20.3 Seconds (9.4-12.1)
[2019-10-16 10:48] LABS: Calcium 8.6 mg/dL (8.6-10.3); Potassium 3.8 mEq/L (3.5-5.1)
[2019-10-16] MEDS ORDERED: *HR* FentaNYL (PF) 100 MCG/2 ML VIAL ONE (15:26)
[2019-10-16] MEDS ORDERED: *HR* Propofol 200 MG/20 ML VIAL IVP ONE (15:27)
[2019-10-16] MEDS ORDERED: Ondansetron 4 MG/2 ML VIAL ONE (15:29)
[2019-10-16] MEDS ORDERED: Lidocaine -MPF 2% 2 ML VIAL ONE (15:29)
[2019-10-16] MEDS ORDERED: Dexamethasone 4 MG/ML VIAL ONE (15:29)
[2019-10-16] MEDS ORDERED: *HR* Midazolam HCl 2 MG/2 ML VIAL ONE (16:49)
[2019-10-16] MEDS ORDERED: Lidocaine 1% 20 ML MDV ONE (16:55)
[2019-10-16] MEDS ORDERED: EPHEDrine 50 MG/ML VIAL ONE (17:28)
[2019-10-16] MEDS ORDERED: Naloxone 0.4 MG/ML INJ IVP PRN (19:31)
[2019-10-16] MEDS ORDERED: D5% in Water 1,000 ML IVC PRN (19:31)
[2019-10-16] MEDS ORDERED: Dextrose Gel 15 GM/37.5 ML TUBE PO PRN ×2 (19:31)
[2019-10-16] MEDS ORDERED: Ondansetron 4 MG/2 ML VIAL IVP PRN (19:31)
[2019-10-16] MEDS ORDERED: *HR* Dextrose 50 % in Water (Vial) 50 ML VIAL IVP PRN (19:31)
[2019-10-16] MEDS ORDERED: *HR* LORazepam 2 MG/ML VIAL IM PRN (19:48)
[2019-10-16] MEDS: QUEtiapine Fumarate 25 MG TABLET PO SCH (20:38)
[2019-10-17 03:15] LABS: Basophils % 0.2 %; Hematocrit 36.3 % (37.5-50.1); Hemoglobin 11.4 g/dL (12.9-16.9); Immature Granulocytes % 1.2 % (0-4); Lymphocytes # 0.3 K/mcL (0.6-4.6); Lymphocytes % 1.8 %; Mean Corpuscular HGB Conc 31.4 g/dL (31.6-35.5); Mean Corpuscular Volume 92.4 fL (83.0-100.0); Mean Platelet Volume 9.9 fL (9.4-12.4); Monocytes # 0.1 K/mcL (0.0-1.3); Monocytes % 0.7 %; Neutrophils # 15.6 K/mcL (1.6-8.9); Nucleated Red Blood Cells 0.1 /100 WBC (0); Platelet Count 356 K/mcL (140-400); Red Blood Count 3.93 M/mcL (4.19-5.50); Red Cell Distribution Width 19.6 % (11.5-14.5); Segmented Neutrophils % 96.1 %; White Blood Count 16.2 K/mcL (4.3-11.1)
[2019-10-17 03:19] LABS: INR 1.8; Prothrombin Time 19.9 Seconds (9.4-12.1)
[2019-10-17 03:34] LABS: Calcium 8.4 mg/dL (8.6-10.3); Potassium 4.5 mEq/L (3.5-5.1)
[2019-10-17] MEDS: Piperacillin/Tazobactam 3.375 GM in 0.9 % Sodium Chloride Mini Bag 100 ML IVPB SCH ×3 (04:35→20:52)
[2019-10-17] MEDS ORDERED: Doxycycline 100 MG in 0.9 % Sodium Chloride Mini Bag 100 ML IVPB SCH (06:00)
[2019-10-17] MEDS: *HR* Heparin 5,000 UNIT/ML VIAL SQ SCH ×2 (06:01→18:09)
[2019-10-17 06:39] LABS: Acinetobacter baumannii by PCR Not Detected (Not Detect); Candida albicans by PCR Not Detected (Not Detect); Candida glabrata by PCR Not Detected (Not Detect); Candida krusei by PCR Not Detected (Not Detect); Candida parapsilosis by PCR Not Detected (Not Detect); Candida tropicalis by PCR Not Detected (Not Detect); Enterobacter cloacae Cmplx PCR Not Detected (Not Detect); Enterobacteriaceae by PCR Not Detected (Not Detect); Enterococcus by PCR Not Detected (Not Detect); Escherichia coli by PCR Not Detected (Not Detect); Klebsiella oxytoca by PCR Not Detected (Not Detect); Klebsiella pneumoniae by PCR Not Detected (Not Detect); Proteus by PCR Not Detected (Not Detect); Pseudomonas aeruginosa by PCR Not Detected (Not Detect); Serratia marcescens by PCR Not Detected (Not Detect); Staphylococcus aureus by PCR DETECTED (Not Detect); Streptococcus agalactiae(B)PCR Not Detected (Not Detect); Streptococcus by PCR Not Detected (Not Detect); Streptococcus pneumoniae PCR Not Detected (Not Detect); Streptococcus pyogenes (A) PCR Not Detected (Not Detect); blaKPC Carbapenem-Resist Gene Not Detected (Not Detect); mecA Methicillin-Resist Gene Not Detected (Not Detect); vanA/B Vancomycin-Resist Genes Not Detected (Not Detect)
[2019-10-17 09:20] LABS: VBG HCO3 16 mEq/L (21-27); VBG PCO2 32 mmHg (41-51); VBG PH 7.32 pH Units (7.32-7.42); VBG PO2 91 mmHg (25-50)
[2019-10-17] MEDS: Aspirin Enteric Coated 81 MG Tablet PO SCH ×2 (09:43→13:52)
[2019-10-17] MEDS: Insulin LISPRO 300 UNITS/3 ML VIAL SQ SCH ×4 (09:44→20:46)
[2019-10-17] MEDS ORDERED: Vancomycin 1,250 MG/262.5 ML IV.SOLN IVPB ONE (12:00)
[2019-10-17 15:30] LABS: Calcium 8.4 mg/dL (8.6-10.3); Potassium 4.5 mEq/L (3.5-5.1)
[2019-10-17 19:20] LABS: Bacteria,Urine Few per hpf (None-Few); Bilirubin,Urine Negative (Negative); Blood,Urine Large (Negative); Budding Yeast,Urine Moderate per hpf (None Seen); Calcium Oxalate Crystals,Urine Present; Clarity,Urine Turbid (Clear); Color,Urine Yellow (Yellow); Glucose,Urine (UA) Normal (Normal); Hyaline Casts,Urine Few per lpf (None Seen); Ketones,Urine Negative (Negative); Leukocyte Esterase,Urine Small (Negative); Mucus,Urine Few per lpf (None-Few); Nitrite,Urine Negative (Negative); PH,Urine 5.5 pH Units (5.0-8.0); Protein,Urine 30 mg/dL (Neg-Trace); RBC,Urine TNTC per hpf (0-3); Specific Gravity,Urine 1.024 (1.010-1.025); Squamous Epithelial Cell,Urine Few per hpf (None-Few); WBC,Urine 50-100 per hpf (0-3)
[2019-10-17] MEDS: Doxycycline 100 MG CAPSULE PO SCH (20:51)
[2019-10-17] MEDS: QUEtiapine Fumarate 25 MG TABLET PO SCH (20:52)
[2019-10-17] MEDS ORDERED: Doxycycline 100 MG CAPSULE PO SCH (21:00)
[2019-10-18] MEDS: *HR* Heparin 5,000 UNIT/ML VIAL SQ SCH ×2 (04:55→18:28)
[2019-10-18] MEDS: Piperacillin/Tazobactam 3.375 GM in 0.9 % Sodium Chloride Mini Bag 100 ML IVPB SCH ×2 (04:57→12:10)
[2019-10-18 05:19] LABS: VBG HCO3 24 mEq/L (21-27); VBG PCO2 41 mmHg (41-51); VBG PH 7.37 pH Units (7.32-7.42); VBG PO2 40 mmHg (25-50)
[2019-10-18 05:27] LABS: Hematocrit 35.7 % (37.5-50.1); Hemoglobin 11.3 g/dL (12.9-16.9); Mean Corpuscular HGB Conc 31.7 g/dL (31.6-35.5); Mean Corpuscular Hemoglobin 29.1 pg (28.0-33.3); Mean Platelet Volume 9.5 fL (9.4-12.4); Platelet Count 351 K/mcL (140-400); Red Blood Count 3.88 M/mcL (4.19-5.50); Red Cell Distribution Width 20.2 % (11.5-14.5); White Blood Count 17.6 K/mcL (4.3-11.1)
[2019-10-18 05:44] LABS: Calcium 8.6 mg/dL (8.6-10.3); Potassium 3.9 mEq/L (3.5-5.1)
[2019-10-18] MEDS: Insulin LISPRO 300 UNITS/3 ML VIAL SQ SCH ×4 (08:16→20:59)
[2019-10-18] MEDS: Aspirin Enteric Coated 81 MG Tablet PO SCH (11:20)
[2019-10-18] MEDS: Doxycycline 100 MG CAPSULE PO SCH (11:20)
[2019-10-18] MEDS: D5% in Water 1,000 ML IVC SCH (12:12)
[2019-10-18 13:36] LABS: INR 1.8; Prothrombin Time 20.4 Seconds (9.4-12.1)
[2019-10-18 13:51] LABS: Albumin 3.1 g/dL (3.5-5.7); Albumin/Globulin Ratio 0.9 (1.1-2.2); Bilirubin,Direct 0.9 mg/dL (0.0-0.2); Bilirubin,Indirect 0.9 mg/dL (0.0-1.0); Bilirubin,Total 1.8 mg/dL (0.3-1.0); Globulin 3.5 g/dL (2.4-3.5); Total Protein 6.6 g/dL (6.4-8.9)
[2019-10-18 15:05] LABS: Basophils % 0.2 %; Eosinophils # 0.1 K/mcL (0.0-0.6); Eosinophils % 0.3 %; Immature Granulocytes % 0.7 % (0-4); Lymphocytes # 0.7 K/mcL (0.6-4.6); Lymphocytes % 4.2 %; Monocytes # 0.7 K/mcL (0.0-1.3); Monocytes % 4.2 %; Neutrophils # 15.9 K/mcL (1.6-8.9); Nucleated Red Blood Cells 0.2 /100 WBC (0); Segmented Neutrophils % 90.4 %
[2019-10-18] MEDS: levoFLOXacin 750 MG/150 ML 750 MG/150 ML BAG IVPB SCH (15:32)
[2019-10-18] MEDS ORDERED: Doxycycline 100 MG in 0.9 % Sodium Chloride Mini Bag 100 ML IVPB SCH (18:00)
[2019-10-18] MEDS: ceFAZolin 2,000 MG in 0.9 % Sodium Chloride 100 ML IVPB SCH (18:28)
[2019-10-18] MEDS: QUEtiapine Fumarate 25 MG TABLET PO SCH (21:00)
[2019-10-19] MEDS: MetroNIDAZOLE 500 MG/100 ML 500 MG/100 ML BAG IVPB SCH ×4 (00:06→23:37)
[2019-10-19 01:45] LABS: Basophils % 0.2 %; Eosinophils # 0.1 K/mcL (0.0-0.6); Hematocrit 34.8 % (37.5-50.1); Immature Granulocytes % 0.9 % (0-4); Lymphocytes # 0.5 K/mcL (0.6-4.6); Lymphocytes % 4.4 %; Mean Corpuscular HGB Conc 31.6 g/dL (31.6-35.5); Mean Corpuscular Hemoglobin 28.5 pg (28.0-33.3); Mean Corpuscular Volume 90.2 fL (83.0-100.0); Mean Platelet Volume 9.3 fL (9.4-12.4); Monocytes # 0.5 K/mcL (0.0-1.3); Monocytes % 3.9 %; Nucleated Red Blood Cells 0.2 /100 WBC (0); Platelet Count 317 K/mcL (140-400); Red Blood Count 3.86 M/mcL (4.19-5.50); Red Cell Distribution Width 19.9 % (11.5-14.5); Segmented Neutrophils % 89.6 %; White Blood Count 12.3 K/mcL (4.3-11.1)
[2019-10-19 02:04] LABS: Albumin 2.9 g/dL (3.5-5.7); Albumin/Globulin Ratio 0.9 (1.1-2.2); Bilirubin,Total 1.6 mg/dL (0.3-1.0); Globulin 3.3 g/dL (2.4-3.5); Potassium 3.6 mEq/L (3.5-5.1); Total Protein 6.2 g/dL (6.4-8.9)
[2019-10-19 02:19] LABS: Albumin 2.9 g/dL (3.5-5.7); Albumin/Globulin Ratio 0.9 (1.1-2.2); Bilirubin,Direct 0.8 mg/dL (0.0-0.2); Bilirubin,Indirect 0.8 mg/dL (0.0-1.0); Bilirubin,Total 1.6 mg/dL (0.3-1.0); Globulin 3.3 g/dL (2.4-3.5); Total Protein 6.2 g/dL (6.4-8.9)
[2019-10-19] MEDS: D5% in Water 1,000 ML IVC SCH ×3 (02:54→23:37)
[2019-10-19] MEDS: *HR* Heparin 5,000 UNIT/ML VIAL SQ SCH ×2 (04:52→17:49)
[2019-10-19] MEDS: ceFAZolin 2,000 MG in 0.9 % Sodium Chloride 100 ML IVPB SCH ×2 (04:52→17:53)
[2019-10-19] MEDS ORDERED: *HR* Midazolam HCl 2 MG/2 ML VIAL IVP PRN (09:26)
[2019-10-19] MEDS ORDERED: 0.9 % Sodium Chloride 500 ML IVC ONE (09:26)
[2019-10-19] MEDS ORDERED: Lidocaine Viscous Oral Soln 15 ML SOLUTION MM PRN (09:26)
[2019-10-19] MEDS ORDERED: *HR* Midazolam HCl 5 MG/5 ML VIAL IVP ONE ×2 (09:41→09:42)
[2019-10-19] MEDS: *HR* FentaNYL (PF) 100 MCG/2 ML VIAL IVP PRN ×2 (09:50→09:55)
[2019-10-19] MEDS: Aspirin Enteric Coated 81 MG Tablet PO SCH (12:30)
[2019-10-19] MEDS: Insulin LISPRO 300 UNITS/3 ML VIAL SQ SCH ×4 (12:31→21:57)
[2019-10-19] MEDS ORDERED: 0.45 % Sodium Chloride w/KCl 20 MEQ/1,000 ML MLS IVC SCH (14:00)
[2019-10-19 16:15] LABS: Sodium, Urine 16.6 mEq/L
[2019-10-19] MEDS ORDERED: Milk and Molasses Enema 200 ML RC ONE (16:25)
[2019-10-19 17:21] LABS: C282Y Hemochromatosis Mutation NEGATIVE; H63D Hemochromatosis Mutation HETEROZYGOUS; HFE Specimen Type WHOLE BLOOD; S65C Hemochromatosis Mutation HETEROZYGOUS
[2019-10-19] MEDS: QUEtiapine Fumarate 25 MG TABLET PO SCH (22:06)
[2019-10-20] MEDS: *HR* Heparin 5,000 UNIT/ML VIAL SQ SCH ×2 (05:58→16:42)
[2019-10-20] MEDS: ceFAZolin 2,000 MG in 0.9 % Sodium Chloride 100 ML IVPB SCH (05:59)
[2019-10-20 06:08] LABS: Basophils % 0.4 %; Eosinophils # 0.2 K/mcL (0.0-0.6); Eosinophils % 2.7 %; Hematocrit 34.4 % (37.5-50.1); Hemoglobin 10.8 g/dL (12.9-16.9); Lymphocytes # 0.5 K/mcL (0.6-4.6); Lymphocytes % 5.8 %; Mean Corpuscular HGB Conc 31.4 g/dL (31.6-35.5); Mean Corpuscular Hemoglobin 28.9 pg (28.0-33.3); Mean Platelet Volume 9.6 fL (9.4-12.4); Monocytes # 0.5 K/mcL (0.0-1.3); Monocytes % 5.6 %; Neutrophils # 6.8 K/mcL (1.6-8.9); Nucleated Red Blood Cells 0.2 /100 WBC (0); Platelet Count 311 K/mcL (140-400); Red Blood Count 3.74 M/mcL (4.19-5.50); Red Cell Distribution Width 20.4 % (11.5-14.5); Segmented Neutrophils % 84.5 %; White Blood Count 8.1 K/mcL (4.3-11.1)
[2019-10-20 06:28] LABS: Calcium 8.2 mg/dL (8.6-10.3); Potassium 3.3 mEq/L (3.5-5.1)
[2019-10-20] MEDS: Aspirin Enteric Coated 81 MG Tablet PO SCH (09:30)
[2019-10-20] MEDS: Insulin LISPRO 300 UNITS/3 ML VIAL SQ SCH ×4 (09:30→20:00)
[2019-10-20] MEDS: MetroNIDAZOLE 500 MG/100 ML 500 MG/100 ML BAG IVPB SCH (09:31)
[2019-10-20] MEDS: levoFLOXacin 750 MG/150 ML 750 MG/150 ML BAG IVPB SCH (16:32)
[2019-10-20] MEDS: metroNIDAZOLE 500 MG TABLET PO SCH ×2 (16:42→20:07)
[2019-10-20] MEDS: CeFAZolin 2 GM/120 ML BAG IVPB SCH (17:05)
[2019-10-20] MEDS: QUEtiapine Fumarate 25 MG TABLET PO SCH (20:07)
[2019-10-21] MEDS: CeFAZolin 2 GM/120 ML BAG IVPB SCH ×3 (00:05→16:58)
[2019-10-21] MEDS: *HR* Heparin 5,000 UNIT/ML VIAL SQ SCH ×2 (05:11→17:30)
[2019-10-21 06:17] LABS: Basophils % 0.2 %; Eosinophils # 0.1 K/mcL (0.0-0.6); Eosinophils % 1.6 %; Hematocrit 36.3 % (37.5-50.1); Hemoglobin 11.3 g/dL (12.9-16.9); Lymphocytes # 0.5 K/mcL (0.6-4.6); Lymphocytes % 5.5 %; Mean Corpuscular HGB Conc 31.1 g/dL (31.6-35.5); Mean Corpuscular Hemoglobin 28.5 pg (28.0-33.3); Mean Corpuscular Volume 91.4 fL (83.0-100.0); Mean Platelet Volume 9.4 fL (9.4-12.4); Monocytes # 0.4 K/mcL (0.0-1.3); Monocytes % 4.9 %; Neutrophils # 7.7 K/mcL (1.6-8.9); Platelet Count 311 K/mcL (140-400); Red Blood Count 3.97 M/mcL (4.19-5.50); Red Cell Distribution Width 20.3 % (11.5-14.5); Segmented Neutrophils % 86.8 %; White Blood Count 8.9 K/mcL (4.3-11.1)
[2019-10-21 06:36] LABS: Calcium 8.1 mg/dL (8.6-10.3); Magnesium 2.5 mg/dL (1.6-2.6); Phosphorous 3.1 mg/dL (2.7-4.5); Potassium 3.6 mEq/L (3.5-5.1)
[2019-10-21] MEDS: metroNIDAZOLE 500 MG TABLET PO SCH ×3 (08:07→20:32)
[2019-10-21] MEDS: Aspirin Enteric Coated 81 MG Tablet PO SCH (08:07)
[2019-10-21] MEDS: Insulin LISPRO 300 UNITS/3 ML VIAL SQ SCH ×4 (08:28→20:32)
[2019-10-21] MEDS: QUEtiapine Fumarate 25 MG TABLET PO SCH (20:32)
[2019-10-22] MEDS: CeFAZolin 2 GM/120 ML BAG IVPB SCH ×4 (00:08→23:46)
[2019-10-22 02:15] LABS: Hematocrit 36.2 % (37.5-50.1); Hemoglobin 11.5 g/dL (12.9-16.9); Mean Corpuscular HGB Conc 31.8 g/dL (31.6-35.5); Mean Corpuscular Hemoglobin 29.4 pg (28.0-33.3); Mean Corpuscular Volume 92.6 fL (83.0-100.0); Mean Platelet Volume 9.5 fL (9.4-12.4); Platelet Count 314 K/mcL (140-400); Red Blood Count 3.91 M/mcL (4.19-5.50); Red Cell Distribution Width 20.8 % (11.5-14.5); White Blood Count 8.8 K/mcL (4.3-11.1)
[2019-10-22 02:24] LABS: BUN/Creatinine Ratio 44 (6-26); Blood Urea Nitrogen 61 mg/dL (8-23); Carbon Dioxide 19 mEq/L (23-29); Chloride 108 mEq/L (98-107); Glucose 165 mg/dL (70-105); Osmolality,Calculated 305 (280-300); Potassium 3.7 mEq/L (3.5-5.1); Sodium 137 mEq/L (136-145); eGFR For African Americans > 60 (> 60); eGFR For Non-African Americans 50 (> 60)
[2019-10-22] MEDS: *HR* Heparin 5,000 UNIT/ML VIAL SQ SCH ×2 (06:05→17:03)
[2019-10-22] MEDS: metroNIDAZOLE 500 MG TABLET PO SCH ×3 (07:37→21:15)
[2019-10-22] MEDS: Aspirin Enteric Coated 81 MG Tablet PO SCH (07:38)
[2019-10-22] MEDS: Insulin LISPRO 300 UNITS/3 ML VIAL SQ SCH ×4 (07:44→21:11)
[2019-10-22] MEDS: levoFLOXacin 750 MG/150 ML 750 MG/150 ML BAG IVPB SCH (14:46)
[2019-10-22] MEDS: QUEtiapine Fumarate 25 MG TABLET PO SCH (21:15)
[2019-10-23 03:13] LABS: Hematocrit 37.7 % (37.5-50.1); Hemoglobin 11.6 g/dL (12.9-16.9); Mean Corpuscular HGB Conc 30.8 g/dL (31.6-35.5); Mean Corpuscular Hemoglobin 28.6 pg (28.0-33.3); Mean Corpuscular Volume 93.1 fL (83.0-100.0); Mean Platelet Volume 9.4 fL (9.4-12.4); Platelet Count 309 K/mcL (140-400); Red Blood Count 4.05 M/mcL (4.19-5.50); Red Cell Distribution Width 20.9 % (11.5-14.5); White Blood Count 8.1 K/mcL (4.3-11.1)
[2019-10-23 03:29] LABS: BUN/Creatinine Ratio 48 (6-26); Blood Urea Nitrogen 60 mg/dL (8-23); C-Reactive Protein 61 mg/L (Less than 10); Calcium 8.3 mg/dL (8.6-10.3); Carbon Dioxide 20 mEq/L (23-29); Chloride 109 mEq/L (98-107); Glucose 156 mg/dL (70-105); Osmolality,Calculated 308 (280-300); Potassium 3.9 mEq/L (3.5-5.1); Sodium 139 mEq/L (136-145); eGFR For African Americans > 60 (> 60); eGFR For Non-African Americans 56 (> 60)
[2019-10-23] MEDS: *HR* Heparin 5,000 UNIT/ML VIAL SQ SCH ×2 (06:05→19:13)
[2019-10-23] MEDS: Aspirin Enteric Coated 81 MG Tablet PO SCH (07:43)
[2019-10-23] MEDS: metroNIDAZOLE 500 MG TABLET PO SCH ×3 (07:43→20:03)
[2019-10-23] MEDS: Insulin LISPRO 300 UNITS/3 ML VIAL SQ SCH ×4 (07:44→20:04)
[2019-10-23] MEDS: CeFAZolin 2 GM/120 ML BAG IVPB SCH ×3 (08:55→23:35)
[2019-10-23] MEDS: levoFLOXacin 750 MG/150 ML 750 MG/150 ML BAG IVPB SCH (12:12)
[2019-10-23] MEDS: QUEtiapine Fumarate 25 MG TABLET PO SCH (20:04)
[2019-10-24] MEDS: *HR* Heparin 5,000 UNIT/ML VIAL SQ SCH (04:38)
[2019-10-24 06:03] LABS: Hematocrit 38.8 % (37.5-50.1); Hemoglobin 12.2 g/dL (12.9-16.9); Mean Corpuscular HGB Conc 31.4 g/dL (31.6-35.5); Mean Corpuscular Hemoglobin 29.5 pg (28.0-33.3); Mean Corpuscular Volume 93.9 fL (83.0-100.0); Mean Platelet Volume 9.6 fL (9.4-12.4); Platelet Count 318 K/mcL (140-400); Red Blood Count 4.13 M/mcL (4.19-5.50); Red Cell Distribution Width 21.5 % (11.5-14.5); White Blood Count 9.8 K/mcL (4.3-11.1)
[2019-10-24 06:20] LABS: BUN/Creatinine Ratio 46 (6-26); Blood Urea Nitrogen 63 mg/dL (8-23); Calcium 8.9 mg/dL (8.6-10.3); Carbon Dioxide 21 mEq/L (23-29); Chloride 108 mEq/L (98-107); Glucose 207 mg/dL (70-105); Osmolality,Calculated 310 (280-300); Potassium 4.2 mEq/L (3.5-5.1); Sodium 138 mEq/L (136-145); eGFR For African Americans > 60 (> 60); eGFR For Non-African Americans 51 (> 60)
[2019-10-24] MEDS: levoFLOXacin 750 MG/150 ML 750 MG/150 ML BAG IVPB SCH (08:27)
[2019-10-24] MEDS: metroNIDAZOLE 500 MG TABLET PO SCH (08:27)
[2019-10-24] MEDS: Aspirin Enteric Coated 81 MG Tablet PO SCH (08:27)
[2019-10-24] MEDS: Insulin LISPRO 300 UNITS/3 ML VIAL SQ SCH ×2 (08:29→11:30)
[2019-10-24] MEDS: CeFAZolin 2 GM/120 ML BAG IVPB SCH (09:10)
[2019-10-24 11:15] VITALS: BP 109/72
== END 2019-10-24 15:21 | DRG 853 ==
LOC: 3ANU → SUATTDRO 10-11 17:34 → 2NNU 10-13 17:57 → 2ANU 10-15 16:51
PROVIDERS: ADMIT Family Medicine; ATTEND Internal Medicine

== ENCOUNTER 2019-11-02 10:57 | Inpatient (IN) ==
[2019-11-02] MEDS ORDERED: D5% in Water 1,000 ML IVC PRN (12:04)
[2019-11-02] MEDS ORDERED: Dextrose Gel 15 GM/37.5 ML TUBE PO PRN ×2 (12:04)
[2019-11-02] MEDS ORDERED: Ondansetron 4 MG/2 ML VIAL IVP PRN (12:04)
[2019-11-02] MEDS ORDERED: *HR* Dextrose 50 % in Water (Vial) 50 ML VIAL IVP PRN (12:04)
[2019-11-02] MEDS ORDERED: *HR* HYDROcodone/Acet 5/325 mg TABLET PO PRN (12:04)
[2019-11-02] MEDS ORDERED: Acetaminophen 325 MG TABLET PO PRN (12:04)
[2019-11-02] MEDS ORDERED: *HR* OxyCODONE Immed Rel 5 MG TABLET PO PRN (12:04)
[2019-11-02] MEDS ORDERED: Naloxone 0.4 MG/ML INJ IVP PRN (12:04)
[2019-11-02] MEDS ORDERED: levoFLOXacin 750 MG/150 ML 750 MG/150 ML BAG IVPB SCH (12:45)
[2019-11-02 13:17] LABS: Basophils % 0.7 %; Eosinophils # 0.2 K/mcL (0.0-0.6); Eosinophils % 3.1 %; Hematocrit 35.3 % (37.5-50.1); Immature Granulocytes % 0.5 % (0-4); Lymphocytes # 0.6 K/mcL (0.6-4.6); Lymphocytes % 10.3 %; Mean Corpuscular HGB Conc 31.2 g/dL (31.6-35.5); Mean Corpuscular Hemoglobin 29.3 pg (28.0-33.3); Mean Corpuscular Volume 94.1 fL (83.0-100.0); Mean Platelet Volume 9.6 fL (9.4-12.4); Monocytes # 0.6 K/mcL (0.0-1.3); Monocytes % 9.4 %; Neutrophils # 4.7 K/mcL (1.6-8.9); Platelet Count 151 K/mcL (140-400); Red Blood Count 3.75 M/mcL (4.19-5.50); Red Cell Distribution Width 21.2 % (11.5-14.5); White Blood Count 6.1 K/mcL (4.3-11.1)
[2019-11-02 14:44] LABS: Calcium 8.1 mg/dL (8.6-10.3); Potassium 3.7 mEq/L (3.5-5.1)
[2019-11-02] MEDS: CeFAZolin 2 GM/120 ML BAG IVPB SCH (17:22)
[2019-11-02] MEDS: Insulin LISPRO 300 UNITS/3 ML VIAL SQ SCH (17:23)
[2019-11-02] MEDS: *HR* Heparin 5,000 UNIT/ML VIAL SQ SCH (17:25)
[2019-11-02 23:32] LABS: Adenovirus Not Detected (Not Detect); Coronavirus 229E Not Detected (Not Detect); Coronavirus HKU1 Not Detected (Not Detect); Coronavirus NL63 Not Detected (Not Detect); Coronavirus OC43 Not Detected (Not Detect)
[2019-11-02 23:33] LABS: Bordetella Pertussis Not Detected (Not Detect); Chlamydophila pneumoniae Not Detected (Not Detect); Human Metapneumovirus Not Detected (Not Detect); Human Rhinovirus/Enterovirus Not Detected (Not Detect); Influenza A Subtype 2009 H1 Not Detected (Not Detect); Influenza B Not Detected (Not Detect); Mycoplasma pneumoniae Not Detected (Not Detect); Parainfluenza Virus 1 Not Detected (Not Detect); Parainfluenza Virus 2 Not Detected (Not Detect); Parainfluenza Virus 3 Not Detected (Not Detect); Parainfluenza Virus 4 Not Detected (Not Detect); Respiratory Syncytial Virus Not Detected (Not Detect)
[2019-11-03] MEDS: CeFAZolin 2 GM/120 ML BAG IVPB SCH ×4 (00:09→23:43)
[2019-11-03 04:33] LABS: Basophils # 0.1 K/mcL (0.0-0.2); Eosinophils # 0.2 K/mcL (0.0-0.6); Eosinophils % 4.2 %; Hematocrit 35.2 % (37.5-50.1); Hemoglobin 11.2 g/dL (12.9-16.9); Immature Granulocytes % 0.4 % (0-4); Lymphocytes # 0.6 K/mcL (0.6-4.6); Lymphocytes % 12.6 %; Mean Corpuscular HGB Conc 31.8 g/dL (31.6-35.5); Mean Corpuscular Hemoglobin 29.2 pg (28.0-33.3); Mean Corpuscular Volume 91.9 fL (83.0-100.0); Mean Platelet Volume 9.9 fL (9.4-12.4); Monocytes # 0.5 K/mcL (0.0-1.3); Monocytes % 10.1 %; Neutrophils # 3.6 K/mcL (1.6-8.9); Platelet Count 145 K/mcL (140-400); Red Blood Count 3.83 M/mcL (4.19-5.50); Red Cell Distribution Width 20.8 % (11.5-14.5); Segmented Neutrophils % 71.7 %; White Blood Count 5.1 K/mcL (4.3-11.1)
[2019-11-03 04:35] LABS: INR 1.4; Prothrombin Time 16.2 Seconds (9.4-12.1)
[2019-11-03 04:57] LABS: BUN/Creatinine Ratio 29 (6-26); Blood Urea Nitrogen 37 mg/dL (8-23); Calcium 8.6 mg/dL (8.6-10.3); Carbon Dioxide 30 mEq/L (23-29); Chloride 100 mEq/L (98-107); Glucose 74 mg/dL (70-105); Magnesium 1.6 mg/dL (1.6-2.6); Osmolality,Calculated 293 (280-300); Potassium 3.5 mEq/L (3.5-5.1); Sodium 138 mEq/L (136-145); eGFR For African Americans > 60 (> 60); eGFR For Non-African Americans 55 (> 60)
[2019-11-03] MEDS: *HR* Heparin 5,000 UNIT/ML VIAL SQ SCH ×2 (05:17→18:04)
[2019-11-03] MEDS: Insulin LISPRO 300 UNITS/3 ML VIAL SQ SCH ×3 (07:38→17:55)
[2019-11-03] MEDS ORDERED: *HR* FentaNYL (PF) 100 MCG/2 ML VIAL ONE (11:02)
[2019-11-03] MEDS ORDERED: *HR* Midazolam HCl 2 MG/2 ML VIAL ONE (11:02)
[2019-11-03] MEDS ORDERED: *HR* Propofol 200 MG/20 ML VIAL IVP ONE (11:03)
[2019-11-03] MEDS ORDERED: *HR* Succinylcholine 200 MG/10 ML VIAL IVP ONE (11:04)
[2019-11-03] MEDS ORDERED: Bupivacaine/EPI 1:200k 0.25%PF 30 ML VIAL ONE (11:11)
[2019-11-03] MEDS ORDERED: Lidocaine 1% 20 ML MDV ONE (12:09)
[2019-11-03] MEDS ORDERED: Gabapentin 300 MG CAPSULE PO SCH (12:30)
[2019-11-03] MEDS ORDERED: Aspirin Enteric Coated 81 MG Tablet PO SCH (12:30)
[2019-11-03] MEDS ORDERED: *HR* HYDROcodone/Acet 5/325 mg TABLET PO PRN (14:25)
[2019-11-03] MEDS ORDERED: D5% in Water 1,000 ML IVC PRN (14:25)
[2019-11-03] MEDS ORDERED: Acetaminophen 325 MG TABLET PO PRN (14:25)
[2019-11-03] MEDS ORDERED: Naloxone 0.4 MG/ML INJ IVP PRN (14:25)
[2019-11-03] MEDS ORDERED: Dextrose Gel 15 GM/37.5 ML TUBE PO PRN ×2 (14:25)
[2019-11-03] MEDS ORDERED: Ondansetron 4 MG/2 ML VIAL IVP PRN (14:25)
[2019-11-03] MEDS ORDERED: *HR* OxyCODONE Immed Rel 5 MG TABLET PO PRN (14:25)
[2019-11-03] MEDS ORDERED: *HR* Dextrose 50 % in Water (Vial) 50 ML VIAL IVP PRN (14:25)
[2019-11-03] MEDS ORDERED: Vancomycin 1,000 MG, Sodium Chloride IRRigation 1,000 ML IR ONE ×2 (17:30)
[2019-11-03] MEDS: Bumetanide 1 MG TABLET PO SCH (18:03)
[2019-11-03] MEDS: Spironolactone 25 MG TABLET PO SCH (21:17)
[2019-11-03] MEDS: Gabapentin 300 MG CAPSULE PO SCH (21:17)
[2019-11-04] MEDS: *HR* Heparin 5,000 UNIT/ML VIAL SQ SCH ×2 (05:51→17:25)
[2019-11-04 08:15] LABS: Hematocrit 34.3 % (37.5-50.1); Mean Corpuscular HGB Conc 32.1 g/dL (31.6-35.5); Mean Corpuscular Hemoglobin 30.3 pg (28.0-33.3); Mean Corpuscular Volume 94.5 fL (83.0-100.0); Platelet Count 120 K/mcL (140-400); Red Blood Count 3.63 M/mcL (4.19-5.50); Red Cell Distribution Width 21.3 % (11.5-14.5); White Blood Count 5.4 K/mcL (4.3-11.1)
[2019-11-04 08:36] LABS: BUN/Creatinine Ratio 28 (6-26); Blood Urea Nitrogen 38 mg/dL (8-23); Calcium 8.2 mg/dL (8.6-10.3); Carbon Dioxide 29 mEq/L (23-29); Chloride 100 mEq/L (98-107); Glucose 397 mg/dL (70-105); Osmolality,Calculated 308 (280-300); Potassium 3.7 mEq/L (3.5-5.1); Sodium 136 mEq/L (136-145); eGFR For African Americans > 60 (> 60); eGFR For Non-African Americans 51 (> 60)
[2019-11-04] MEDS: Gabapentin 300 MG CAPSULE PO SCH ×2 (08:52→20:52)
[2019-11-04] MEDS: Bumetanide 1 MG TABLET PO SCH ×2 (08:56→17:24)
[2019-11-04] MEDS: CeFAZolin 2 GM/120 ML BAG IVPB SCH ×2 (08:57→17:20)
[2019-11-04] MEDS: Aspirin Enteric Coated 81 MG Tablet PO SCH (08:57)
[2019-11-04] MEDS: Spironolactone 25 MG TABLET PO SCH ×2 (08:57→20:52)
[2019-11-04] MEDS: Insulin LISPRO 300 UNITS/3 ML VIAL SQ SCH ×3 (09:03→17:21)
[2019-11-04] MEDS: Vancomycin 1,250 MG/262.5 ML IV.SOLN IVPB SCH (10:46)
[2019-11-04] MEDS: levoFLOXacin 750 MG/150 ML 750 MG/150 ML BAG IVPB SCH (13:14)
[2019-11-05] MEDS: CeFAZolin 2 GM/120 ML BAG IVPB SCH ×4 (00:18→23:38)
[2019-11-05] MEDS: *HR* Heparin 5,000 UNIT/ML VIAL SQ SCH ×3 (05:16→21:24)
[2019-11-05] MEDS: Bumetanide 1 MG TABLET PO SCH ×2 (08:36→17:13)
[2019-11-05] MEDS: Spironolactone 25 MG TABLET PO SCH ×2 (08:37→21:24)
[2019-11-05] MEDS: Aspirin Enteric Coated 81 MG Tablet PO SCH (08:37)
[2019-11-05] MEDS: Insulin LISPRO 300 UNITS/3 ML VIAL SQ SCH ×3 (08:37→16:29)
[2019-11-05] MEDS: Gabapentin 300 MG CAPSULE PO SCH ×2 (08:37→21:23)
[2019-11-05] MEDS: Vancomycin 1,250 MG/262.5 ML IV.SOLN IVPB SCH (12:08)
[2019-11-06 04:25] LABS: Hematocrit 33.2 % (37.5-50.1); Hemoglobin 10.5 g/dL (12.9-16.9); Mean Corpuscular HGB Conc 31.6 g/dL (31.6-35.5); Mean Corpuscular Hemoglobin 30.4 pg (28.0-33.3); Mean Corpuscular Volume 96.2 fL (83.0-100.0); Mean Platelet Volume 10.1 fL (9.4-12.4); Platelet Count 110 K/mcL (140-400); Red Blood Count 3.45 M/mcL (4.19-5.50); White Blood Count 5.5 K/mcL (4.3-11.1)
[2019-11-06 04:42] LABS: Calcium 8.1 mg/dL (8.6-10.3); Potassium 3.7 mEq/L (3.5-5.1)
[2019-11-06] MEDS: *HR* Heparin 5,000 UNIT/ML VIAL SQ SCH ×3 (05:56→20:22)
[2019-11-06] MEDS: CeFAZolin 2 GM/120 ML BAG IVPB SCH ×3 (07:28→23:37)
[2019-11-06] MEDS: Spironolactone 25 MG TABLET PO SCH ×2 (07:29→20:22)
[2019-11-06] MEDS: Aspirin Enteric Coated 81 MG Tablet PO SCH (07:29)
[2019-11-06] MEDS: Insulin LISPRO 300 UNITS/3 ML VIAL SQ SCH ×3 (07:29→18:01)
[2019-11-06] MEDS: Gabapentin 300 MG CAPSULE PO SCH ×2 (07:30→20:22)
[2019-11-06] MEDS: Bumetanide 1 MG TABLET PO SCH ×2 (07:32→18:01)
[2019-11-06] MEDS: Vancomycin 1,250 MG/262.5 ML IV.SOLN IVPB SCH ×2 (10:22→12:01)
[2019-11-06] MEDS: levoFLOXacin 750 MG/150 ML 750 MG/150 ML BAG IVPB SCH (12:01)
[2019-11-07] MEDS: *HR* Heparin 5,000 UNIT/ML VIAL SQ SCH ×2 (06:11→12:21)
[2019-11-07] MEDS: CeFAZolin 2 GM/120 ML BAG IVPB SCH (08:23)
[2019-11-07] MEDS: Bumetanide 1 MG TABLET PO SCH (08:23)
[2019-11-07] MEDS: Spironolactone 25 MG TABLET PO SCH (08:24)
[2019-11-07] MEDS: Aspirin Enteric Coated 81 MG Tablet PO SCH (08:24)
[2019-11-07] MEDS: Gabapentin 300 MG CAPSULE PO SCH (08:24)
[2019-11-07] MEDS: Insulin LISPRO 300 UNITS/3 ML VIAL SQ SCH ×2 (08:26→12:21)
[2019-11-07 11:35] VITALS: BP 112/69
== END 2019-11-07 16:53 | DRG 264 ==
LOC: 3BNU → SUATTDRO 11-03 17:06
PROVIDERS: ADMIT Internal Medicine; ATTEND Internal Medicine